=== PATIENT | female | born 1975 | race Caucasian/White ===

== ENCOUNTER 2019-02-24 14:20 | Outpatient (REF) | payer MEDICAID, SELFPAY ==
[2019-02-24 20:54] LABS: ALT 20 U/L (14-59); AST 11 U/L (15-37); Albumin 4.1 g/dL (3.4-5.0); Alkaline Phosphatase 49 U/L (46-116); Anion Gap 10.4 mmol/L (3-11); BUN 13 mg/dL (7-18); Bilirubin, Total 0.4 mg/dL (0.2-1.0); CO2 26.6 mmol/L (21.0-32.0); CREATININE 0.76 mg/dL (0.55-1.02); Calcium 9.1 mg/dL (8.5-10.1); Calculated LDL 117 mg/dL; Chloride 103 mmol/L (98-107); Cholesterol 220 mg/dL (50-200); Glucose 86 mg/dL (70-100); HDL Cholesterol 86 mg/dL (40-60); Potassium 4.4 mmol/L (3.5-5.1); Sodium 140 mmol/L (136-145); TSH (W/Ref FT4) 1.73 uIU/mL (0.36-3.74); Total Protein 7.9 g/dL (6.4-8.2); Triglyceride 85 mg/dL (30-150)
== END 2019-02-24 14:40 ==
LOC: NCHCN 14:20
PROVIDERS: PCP Nurse Practitioner; Visit Provider Nurse Practitioner
DX: Z13.29 Encounter for screening for other suspected endocrine disorder (principal); Z13.228 Encounter for screening for other metabolic disorders; Z13.220 Encounter for screening for lipoid disorders
CPT/HCPCS: 80053; 80061; 84443

== ENCOUNTER 2019-03-22 11:41 | Inpatient (IN) | payer MEDICAID, SELFPAY ==
[2019-03-22] VITALS (56 sets, daily range): BP systolic 38–127; BP diastolic 28–105; PULSE 56–153; RESP 15–40; TEMP 36.6–36.7; O2SAT 94–100
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
[2019-03-22] MEDS: Lactated Ringers 1,000 ML 1000 ML IV (11:45)
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
--- NOTE | 2019-03-22 11:48 | DI.RAD_ITS ---
EXAM: XR ANKLE RT 2V INDICATION: trauma. COMPARISON: No exams were available for comparison TECHNIQUE: 2D digital imaging was performed. FINDINGS: A displaced mid talar vertical fracture is demonstrated with disruption of the talocalcaneal joint.
--- NOTE | 2019-03-22 11:48 | DI.RAD_ITS ---
EXAM: XR FEMUR RT INDICATION: trauma. COMPARISON: No exams were available for comparison TECHNIQUE: 2D digital imaging was performed. FINDINGS: There is a comminuted displaced fracture of the midshaft of the right femur.
[2019-03-22 11:59] LABS: Abs Immature Grans 0.06 k/cumm (0.0-0.09); Absolute Basophil Count 0.03 k/cumm (0.0-0.2); Absolute Eosinophil Count 0.37 k/cumm (0.0-0.7); Absolute Lymphocyte Count 3.16 k/cumm (1.2-3.4); Absolute Monocyte Count 0.85 k/cumm (0.11-0.7); Absolute Neutrophil Count 10.44 k/cumm (1.2-6.7); Basophils % 0.2; Eosinophils % 2.5; HCT 39.3 % (36.0-46.0); HGB 12.6 g/dL (12.0-15.5); Immature Grans % 0.4; Lymphocytes % 21.2; Mean Corp. HGB Concentration 32.1 g/dL (32.0-36.0); Mean Corpuscular Volume 96.8 fL (80-95); Mean Platelet Volume 10.3 fL (8.0-11.0); Monocytes % 5.7; Platelet Count 400 x1000/uL (130-400); RBC 4.06 m/cumm (4.00-5.20); RBC Distribution Width 12.3 % (11.7-14.6); White Blood Cell Count 14.92 k/cumm (4.4-10.8)
[2019-03-22 12:16] LABS: PTT Activated 19.4 sec (21.0-31.4); Prothrombin Time 10.5 sec (9.3-11.0)
[2019-03-22 12:22] LABS: ALT 26 U/L (14-59); AST 31 U/L (15-37); Albumin 3.8 g/dL (3.4-5.0); Alkaline Phosphatase 50 U/L (46-116); Anion Gap 9.3 mmol/L (3-11); BUN 11 mg/dL (7-18); Bilirubin, Total 0.4 mg/dL (0.2-1.0); CO2 27.7 mmol/L (21.0-32.0); Calcium 8.6 mg/dL (8.5-10.1); Chloride 103 mmol/L (98-107); Glucose 129 mg/dL (70-100); Magnesium 2.1 mg/dL (1.8-2.4); Potassium 3.7 mmol/L (3.5-5.1); Sodium 140 mmol/L (136-145); Total Protein 7.8 g/dL (6.4-8.2)
[2019-03-22 12:23] LABS: Troponin I < 0.05 ng/mL (0.00-0.06)
[2019-03-22] MEDS: Omnipaque 350 MG/ML 100 ML BTL IJ (12:29)
[2019-03-22] MEDS: fentaNYL 100 MCG/2 ML VIAL (13:35)
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
[2019-03-22] MEDS: Cellulose,Oxidized 4X8 1 PACKET MC (14:57)
--- NOTE | 2019-03-22 15:19 | DI.RAD_ITS ---
EXAM: XR PORTABLE CHEST AP INDICATION: COUNT VERIFICATION. TECHNIQUE: 2D digital imaging was performed. FINDINGS: A portable postoperative supine chest reveals no evidence of a pulmonary infiltrate or pneumothorax. The heart is not enlarged. The hilar structures, mediastinum and tracheal air column are intact. A nasogastric tube is identified ending in the stomach. A jugular venous catheter appears to end in th e thorax.
[2019-03-22 15:21] LABS: BE -8.7 mmol/L (-3-3); HCO3 19 mmol/L (22-28); pCO2 44 mmHg (34-47); pH 7.24 (7.35-7.45); pO2 546 mmHg (83-108)
[2019-03-22 15:23] LABS: HCT 25.1 % (36.0-46.0); HGB 8.2 g/dL (12.0-15.5); Mean Corp. HGB Concentration 32.7 g/dL (32.0-36.0); Mean Corpuscular Hemoglobin 27.5 pg (27.0-33.0); Mean Corpuscular Volume 84.2 fL (80-95); Mean Platelet Volume 10.3 fL (8.0-11.0); RBC 2.98 m/cumm (4.00-5.20); RBC Distribution Width 16.6 % (11.7-14.6); White Blood Cell Count 11.59 k/cumm (4.4-10.8)
[2019-03-22 15:32] LABS: Platelet Count 53 x1000/uL (130-400)
[2019-03-22 15:41] LABS: HCT 28.3 % (36.0-46.0); HGB 9.4 g/dL (12.0-15.5); Mean Corp. HGB Concentration 33.2 g/dL (32.0-36.0); Mean Corpuscular Volume 87.3 fL (80-95); Mean Platelet Volume 10.5 fL (8.0-11.0); Platelet Count 47 x1000/uL (130-400); RBC 3.24 m/cumm (4.00-5.20); RBC Distribution Width 16.1 % (11.7-14.6); White Blood Cell Count 9.95 k/cumm (4.4-10.8)
[2019-03-22 16:10] LABS: INR 1.4 (0.9-1.1); Prothrombin Time 14.2 sec (9.3-11.0)
--- NOTE | 2019-03-22 16:15 | DI.RAD_ITS ---
EXAM: XR ABDOMEN FLAT PLATE INDICATION: Postoperative. TECHNIQUE: 2D digital imaging was performed. FINDINGS: Images of the abdomen reveal a nasogastric tube in place which appears to end in the proximal duodenu m. No surgical hardware is identified in the abdomen or pelvis.
[2019-03-22 16:58] LABS: APTT (LRH) 30.1 secs (21.3-28.4); Fibrinogen (Stat) (Littleton) 137 mg/dL (208-434); INR (LRH) 1.4 (0.9-1.1); Protime (LRH) 13.8 secs (9.1-10.6)
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
== END 2019-03-22 17:01 | disposition short-term general hospital (02) | DRG 964 ==
LOC: ER 14:26 → SUR 14:27 → PDS 04-14 11:35
PROVIDERS: Admitting Provider Surgery; Emergency Provider Physician Assistant; PCP Nurse Practitioner; Visit Provider Surgery
PROC: (CPT 49000; principal; 2019-03-22 14:30)
DX: S36.498A Other injury of other part of small intestine, initial encounter (principal); S06.6X0A Traumatic subarachnoid hemorrhage without loss of consciousness, initial encounter; S22.20XA Unspecified fracture of sternum, initial encounter for closed fracture; S72.351A Displaced comminuted fracture of shaft of right femur, initial encounter for closed fracture; S22.31XA Fracture of one rib, right side, initial encounter for closed fracture; S92.191A Other fracture of right talus, initial encounter for closed fracture; V49.88XA Car occupant (driver) (passenger) injured in other specified transport accidents, initial encounter; Y92.413 State road as the place of occurrence of the external cause; I95.9 Hypotension, unspecified; R00.0 Tachycardia, unspecified; R41.82 Altered mental status, unspecified; M95.0 Acquired deformity of nose
CPT/HCPCS: 49000; 44850; 36415; 36430; 73552; 74177; 80053; 82805; 85027; 85384; 86850; 86900; 86901; 86920; 93005; 96361; 96375; 99255; 99285; 70450; 71045; 71260; 72125; 73600; 74018; 82330; 83735; 84484; 85025; 85610; 85730; 93010; J3010; J3490; P9016; P9059

== ENCOUNTER 2021-03-28 15:24 | Outpatient (REF) | payer MEDICAID, SELFPAY ==
[2021-03-28 16:17] LABS: HCT 40.6 % (36.0-46.0); MCH 30.2 pg (27.0-33.0); MCV 94.2 fL (80-95); MPV 11.4 fL (8.0-11.0); Platelet Count 326 10^3/uL (130-400); RBC 4.31 10^6/uL (3.93-5.22); RDW 12.4 % (11.7-14.6); RDW-SD 43.2 fL; WBC 7.26 10^3/uL (4.4-10.8)
== END 2021-03-28 15:25 | disposition home or self-care (01) ==
LOC: NCHCN 15:24
PROVIDERS: PCP Nurse Practitioner; Visit Provider Nurse Practitioner
DX: D64.9 Anemia, unspecified (principal)
CPT/HCPCS: 85027

== ENCOUNTER 2022-01-02 10:52 | Outpatient (REF) | payer MEDICAID, SELFPAY ==
--- NOTE | 2022-01-02 10:00 | PAPFT_PTH ---
PATIENT: Renu Emmanuel LOC: [facility] U#:[id number] AGE/SX: 46/F ROOM: RE01/02/[address]: Radha Rosado NP : 1975 BED: DIS: 01/02/2022 SPEC #: [id number] RECD: 01/02/22 12:25 STATUS: ALFIE REOrly #: [id number] MARILUZ: 01/02/22 10:[address]: Ashlee ALVARADO,Radha DEPT: [facility] Cytology RECD BY: Noni Valderrama ENTERED: 01/02/22 12:25 SP TYPE: PAPFT OTHR DR: Rosalina Rene Tissues: 1 - CX/ENDOCX FOR PAP SMEARS Procedures: PAP THIN PREP/UVM Screening HPV DNA PROBE Comments: [id number] (CHLAMYDIA/GC)
--- OUTSIDE RECORDS SUMMARY | 2022-01-02 11:05 | XMS_ITS | Encounter Summary ---
:1975 Author Organization [facility] Address [address] [facility] [place] [address] Care Team Providers Name Role Phone None Primary Care Provider Unavailable Encounter Details Date Type Department Care Team Description 04/09/2019 Hospital Encounter XRay at [facility] Bee Dupree S/P ORIF R rene, [address] Mervat MD N R femur 03/25/19 [place], [place] [address] Dupree [id number] [place] [phone] [place] [address] Social History Tobacco Use Types Packs/Day Years Used Date Never Smoker Smokeless Tobacco: Never Used Alcohol Use Standard Drinks/Week Comments Never 0 (1 standard drink = 0.6 oz pure alcoho l) Quit in 2012 Alcohol Habits Answer Date Recorded How often do you have a drink containing alcohol? 2-4 times a month 03/28/2019 How many drinks containing alcohol do you have on a 1 or 2 03/28/2019 typical day when you are drinking? How often do you have six or more drinks on one Never 03/28/2019 occasion? Comment: Quit in 201204/09/2019 Sex Assigned at Date Recorded Not on file documented as of this encounter Medications at Time of Discharge Medication Sig Dispensed Refills Start Date End Date acetaminophen Take 2 tablets by mouth 30 tablet 1 9 (TYLENOL) 500 mg every 8 hours. Tablet bisacodyl (DULCOLAX) 5 Take 2 tablets by mouth 30 tablet 0 03/31/2019 mg Tablet, Delayed 2 times daily as needed Release (E.C.) for Constipation. polyethylene glycol Take 17 g by mouth 14 each 0 03/31/20 19 (MIRALAX) 17 gram daily as needed. Powder in Packet docusate sodium Take 100 mg by mouth 0 04/07/2019 05/14/2019 (COLACE) 100 mg Twice daily. Capsule enoxaparin (LOVENOX) Inject 0.4 mLs 12 mL 0 03/31/2019 04/30/2019 40 mg/0.4 mL Syringe subcutaneously daily for 30 days. documented as of this encounter Plan of Treatment Upcoming Encounters Date Type Specialty Care Team Description 02/08/2022 Office Visit Orthopaedics Bee Dupree MD [facility] [address] ORTHOPAEDIC SURG [place], [place] [address] (Wo rk) documented as of this encounter Procedures Procedure Name Priority Date/Time Associated Diagnosis Comme nts XR FOOT MIN 3 VIEWS Routine 04/09/2019 3:24 PM S/P ORIF R talu s, Results for this RIGHT EST IMN R femur 03/25/19 procedu re are in Dr. Dupree the results section. XR FEMUR 2 VIEWS Routine 04/09/2019 3:24 PM S/P ORIF R talus, Results for this RIGHT EST IMN R femur 03/25/19 procedu re are in Dr. Dupree the results section. documented in this encounter Results XR Foot Min 3 views Right (Generic) (04/09/2019 3:24 PM EST) Anatomical Region Laterality Modality Foot Right Digital Radiography Specimen (Source) Anatomical Location Collection Method / Collectio n Time Received Time / Laterality Volume Impressions 04/09/2019 4:40 PM EST Fracture alignment is unchanged, and there is no evidence of hardware complication. Thank you for letting us participate in the care of this patient. For questions regarding this report, please contact e number below. ? Electronically signed by: Johanna Velasquez [facility] ([phone]), at 04/09/2019 4:40 PM Narrative 04/09/2019 4:40 PM EST EXAMINATION: XR FOOT MIN 3 VIEWS RIGHT (GENERIC) CLINICAL HISTORY: S/P ORIF R talus TECHNIQUE: 3 views RIGHT foot COMPARISON: 03/26/2019 FINDINGS: The foot is stabilized in casting materi al, which limits detail. There has been ORIF of the talar fracture, which is in unchanged alignment. There is no evidence of hardware loosening. Procedure Note Johanna Velasquez MD - 04/09/2019Formatt ing of this note might be different from the original. EXAMINATION: XR FOOT MIN 3 VIEWS RIGHT ( GENERIC) CLINICAL HISTORY: S/P ORIF R talus TECHNIQUE: 3 views RIGHT foot COMPARISON: 03/26/2019 FINDINGS: The foot is stabilized in casting materi al, which limits detail. There has been ORIF of the talar fracture, which is in unchanged alignment. There is no evidence of hardware loosening. IMPRESSION Fracture alignment is unchanged, and the re is no evidence of hardware complication. Thank you for letting us participate in the care of this patient. For questions regarding this report, please contact e number below. Electronically signed by: Johanna Velasquez [facility] ([phone]), at 04/09/2019 4:40 PM Bee Dupree MD IMG DX ORDERABLES XR Femur 2 views Right (Generic) (04/09/2019 3:24 PM EST) Anatomical Region Laterality Modality Thigh Right Digital Radiography Specimen (Source) Anatomical Location Collection Method / Collectio n Time Received Time / Laterality Volume Impressions 04/09/2019 4:38 PM EST Progression in healing, without change in alignment. No evidence of hardware complication. Thank you for letting us participate in the care of this patient. For questions regarding this report, please contact th e number below. ? Electronically signed by: Johanna Velasquez [facility] ([phone]), at 04/09/2019 4:38 PM Narrative 04/09/2019 4:38 PM EST EXAMINATION: XR FEMUR 2 VIEWS RIGHT (GENERIC) CLINICAL HISTORY: S/P IMN R femur TECHNIQUE: 2 views RIGHT femur COMPARISON: 03/26/2019 FINDINGS: Again demonstrated is a comminuted fract ure of the mid tibial diaphysis, with butterfly fragment. There has been inter nal fixation with an intramedullary sung and proximal and distal interlocking scr ews. Osseous alignment is unchanged from the prior exam, and there is some perios teal remodeling to indicate progression in healing. There are ghost screw tracks from the external fixator. Procedure Note Johanna Velasquez MD - 04/09/2019Formatt ing of this note might be different from the original. EXAMINATION: XR FEMUR 2 VIEWS RIGHT (GEN SUNSHINE) CLINICAL HISTORY: S/P IMN R femur TECHNIQUE: 2 views RIGHT femur COMPARISON: 03/26/2019 FINDINGS: Again demonstrated is a comminuted fract ure of the mid tibial diaphysis, with butterfly fragment. There has been inter nal fixation with an intramedullary sung and proximal and distal interlocking scr ews. Osseous alignment is unchanged from the prior exam, and there is some perios teal remodeling to indicate progression in healing. There are ghost screw tracks from the external fixator. IMPRESSION Progression in healing, without change i n alignment. No evidence of hardware complication. Thank you for letting us participate in the care of this patient. For questions regarding this report, please contact e number below. 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
--- OUTSIDE RECORDS SUMMARY | 2022-01-02 11:05 | XMS_ITS | Encounter Summary ---
:1975 Author Organization [facility] [place] [address] Care Team Providers Name Role Phone None Primary Care Provider Unavailable Encounter Details Date Type Department Care Team Description 03/31/2019 Telephone Neurosurgery at [facility] [address] Social History Tobacco Use Types Packs/Day Years Used Date Never Smoker Smokeless Tobacco: Never Used Alcohol Use Standard Drinks/Week Comments Yes 0 (1 standard drink = 0.6 oz pure alcoho l) Alcohol Habits Answer Date Recorded How often do you have a drink containing alcohol? 2-4 times a month 03/28/2019 How many drinks containing alcohol do you have on a 1 or 2 03/28/2019 typical day when you are drinking? How often do you have six or more drinks on one Never 03/28/2019 occasion? 

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
--- OUTSIDE RECORDS SUMMARY | 2022-01-02 11:05 | XMS_ITS | Encounter Summary ---
:1975 Author Organization [facility] [place] [address] Care Team Providers Name Role Phone None Primary Care Provider Unavailable Reason for Referral Diagnostic Test (Routine) - Closed Specialty Diagnoses / Procedures Referred By Contact Refer red To Contact Radiology Diagnoses Displaced oblique fracture of shaft of right femur, initial encounter for closed fracture Closed displaced fracture of right talus with routine healing, unspecified fracture morphology, subsequent encounter Alla Schmidt PA [facility] Rad Ct Scan Procedures CT Ankle wo Contrast Right (Generic) [facility] [place] [address] [place] [address] Referral ID Status Reason Start Date Expiration Date Visits V isits Requested Authorized [id number] Closed Specialty 06/04/2019 09/02/2019 1 1 Service Requested Reason for Visit Diagnostic Test (Routine) - Closed Specialty Diagnoses / Procedures Referred By Contact Refer red To Contact Radiology Diagnoses Displaced oblique fracture of shaft of right femur, initial encounter for closed fracture Closed displaced fracture of right talus with routine healing, unspecified fracture morphology, subsequent encounter Alla Schmidt PA [facility] Rad Ct Scan Procedures CT Ankle wo Contrast Right (Generic) [facility] DR [place] [facility] [place] [address] [place] [address] Referral ID Status Reason Start Date Expiration Date Visits V isits Requested Authorized [id number] Closed Specialty 06/04/2019 09/02/2019 1 1 Service Requested Encounter Details Date Type Department Care Team Description 06/10/[address] [place] [facility] [place] Dupree S/P ORIF R talus, IMN R femu r 03/25/19 Dr. Dupree; [facility] MD Mervat Closed displaced fracture of right talus with routine healing, unspecified fracture morphology, subsequent encounter Drive [facility] [address] ORTHOPAEDIC [phone] [place] [address] Social History Tobacco Use Types Packs/Day Years [...] Dispensed Refills Start Date End Date acetaminophen (TYLENOL) 500 Take 2 tablets by 30 tablet 1 1 mg Tablet mouth every 8 hours. bisacodyl (DULCOLAX) 5 mg Take 2 tablets by 30 tablet 0 Tablet, Delayed Release mouth 2 times daily (E.C.) as needed for Constipation. polyethylene glycol Take 17 g by mouth 14 each 0 03/31/20 19 (MIRALAX) 17 gram Powder in daily as needed. Packet documented as of this encounter Plan of Treatment Upcoming Encounters Date Type Specialty Care Team Description 02/08/2022 Office Visit Orthopaedics Bee Dupree MD [facility] ORTHOPAEDIC SUR[place], [place] [address] (Wo rk) documented as of this encounter Procedures Procedure Name Priority Date/Time Associated Diagnosis Comme nts CT ANKLE WO Routine 06/10/2019 11:40 AM S/P ORIF R talus, Res ults for this CONTRAST RIGHT EST IMN R femur 03/25/19 proce dottie are in Dr. Dupree the results Closed displaced section. fracture of right talus with routine healing, unspecified fracture morphology, subsequent encounter documented in this encounter Results CT Ankle wo Contrast [...] For questions regarding this report, please contact [facility] number below. ? Electronically signed by: Sherrell Castillo [facility] ([phone]), at 06/10/2019 3:34 PM Narrative 06/10/2019 3:34 PM EST EXAMINATION: CT [...] contact e number below. Electronically signed by: Sherrell Castillo [facility] ([phone]), at 06/10/2019 3:34 PM Bee Dupree MD IMG CT ORDERABLES documented in this encounter Visit Diagnoses Diagnosis S/P ORIF R talus, IMN R femur 03/25/19 Brissa Dupree Closed displaced fracture of right talus with routine healing, unspecified fracture morphology, subsequent encounter documented in this encounter Care Teams Medical Assembly Relationship Specialty Start Date End Date None PCP - General 03/22/19 11/11/19 None documented as of this encounter
--- OUTSIDE RECORDS SUMMARY | 2022-01-02 11:05 | XMS_ITS | Encounter Summary ---
:1975 Author Organization [facility] [place] [address] Care Team Providers Name Role Phone Rosalina Rene APRN Primary Care Provider Encounter Details Date Type Department Care Team Description 09/03/2021 Orders Only Orthopaedics at [facility] Bee Dupree, Right ankle pain, [facility] unspecified Drive [facility] [place] [address] ORTHOPAEDIC SURGERY [place], [place] [address] Social History Tobacco Use Types [...] on file documented as of this encounter Plan of Treatment Upcoming Encounters Date Type Specialty Care Team Description 02/08/2022 Office Visit Orthopaedics Bee Dupree MD [facility] ORTHOPAEDIC SURG [place], [place] [address] (Wo rk) documented as of this encounter Results XR Ankle Min 3 views Right (Generic) (09/21/2021 1:16 PM EDT) Anatomical Region Laterality Modality Ankle Right Digital Radiography Specimen (Source) Anatomical Location Collection Method / Collectio n Time Received Time / Laterality Volume Impressions 09/21/2021 1:29 PM EDT Talus fracture has healed status post internal fixation. Thank you for letting us participate in the care of this patient. ??If you are a health care provider and have any questi ons regarding this report, please contact the number below. ??For patients who have questions please contact the health laboratory animal care veterinarian that requested your imaging first. ? Narrative 09/21/2021 1:29 PM EDT EXAMINATION: XR ANKLE MIN 3 VIEWS RIGHT (GENERIC) CLINICAL HISTORY: ORIF R talus, IMN R fe mur 03/25/19 Dr. Dupree DOI 03/22/2019 TECHNIQUE: 3 views RIGHT ankle COMPARISON: November 2019 FINDINGS: Status post internal fixation of talar n clara fracture. The fracture has healed. The hardware is intact. Ankle mortise is normal. No collapse of the talar dome similar mild narrowing of the talonavicu lar joint. Procedure Note Ermias Mullen MD - 09/21/2021Formatting o f this note might be different from the original. EXAMINATION: XR ANKLE MIN 3 VIEWS RIGHT (GENERIC) CLINICAL HISTORY: ORIF R talus, IMN R fe mur 03/25/19 Dr. Dupree DOI 03/22/2019 TECHNIQUE: 3 views RIGHT ankle COMPARISON: November 2019 FINDINGS: Status post internal fixation of talar n clara fracture. The fracture has healed. The hardware is intact. Ankle mortise is normal. No collapse of the talar dome similar mild narrowing of the talonavicu lar joint. IMPRESSION Talus fracture has healed status post in ternal fixation. Thank you for letting us participate in the care of this patient. If you are a health care provider and have any questi ons regarding this report, please contact the number below. For patients w ho have questions please contact the health laboratory animal care veterinarian that requested your imaging first. Bee Dupree MD IMG DX ORDERABLES documented in this encounter Visit Diagnoses Diagnosis Right ankle pain, unspecified chronicity Right ankle pain, unspecified chronicity documented in this encounter Care Teams Systems Technologist Relationship Specialty Start Date End Date Rosalina Rene APRN PCP - General Family Medicine 11/12/19 [place] [address] documented as of this encounter
--- OUTSIDE RECORDS SUMMARY | 2022-01-02 11:05 | XMS_ITS | Encounter Summary ---
:1975 Author Organization [facility] [place] [address] Care Team Providers Name Role Phone None Primary Care Provider Unavailable Encounter Details Date Type Department Care Team Description 11/09/2019 Orders Only Orthopaedics at [facility] Bee Dupree, S/P ORIF R YANIV lópez [facility] R femur 03/25/19 [facility] [place] [address] ORTHOPAEDIC SURGERY [place], [place] [address] Social History Tobacco Use Types [...] 02/08/2022 Office Visit Orthopaedics Bee Dupree MD [facility] ER ORTHOPAEDIC SURG [place], [place] [address] (Wo rk) documented as of this encounter Results XR Ankle Min 3 views Right (Generic) (11/12/2019 2:16 PM EDT) Anatomical Region Laterality Modality Ankle Right Digital Radiography Specimen (Source) Anatomical Location Collection Method / Collectio n Time Received Time / Laterality Volume Impressions 11/12/2019 2:25 PM EDT 1. ??The talar fracture lines are no longer seen consistent with healing and or partial obliteration by large number of overlying hardware. The talar dome morphology is preserved. No collapse. 2. ??Incongruent posterior subtalar join t, similar to CT 3. ??Eccentric narrowed talonavicular jonathan int, unchanged. 4. ??Prominent medial talar tilt or inve rsion Thank you for letting us participate in the care of this patient. For questions regarding this report, please contact [facility] number below. ? Narrative 11/12/2019 2:25 PM EDT EXAMINATION: XR ANKLE MIN 3 VIEWS RIGHT (GENERIC) CLINICAL HISTORY: right talus fx ORIF ne w pain, , entered by ordering service TECHNIQUE: Left ankle, 3 views, weightbe aring COMPARISON: Radiographs, May [address] scan, June 2019 FINDINGS: Bones * ??Talus-large number of fixation hardw are. The fracture line is no longer seen. The talar dome remains normal in morphol ogy. No fragmentation or collapse. * ??Cuboid-the fracture lines are oblite rated. Joints * ??Tibiotalar joint-congruent ankle mor tise. Small effusion. There is a prominent talar inversion and tilt. * ??Subtalar joint as incongruent pole framer ior subtalar joint with anterior subluxation of calcaneus similar to CT e xamination. * ??Talonavicular joint-eccentric joint space narrowing but unchanged. Soft tissues Residual soft tissue swelling. Procedure Note Sherrell Castillo MD - 11/12/2019Formatt ing of this note might be different from the original. EXAMINATION: XR ANKLE MIN 3 VIEWS RIGHT (GENERIC) CLINICAL HISTORY: right talus fx ORIF ne w pain, , entered by ordering service TECHNIQUE: Left ankle, 3 views, weightbe aring COMPARISON: Radiographs, May [address] scan, June 2019 FINDINGS: Bones * Talus-large number of fixation hardwar e. The fracture line is no longer seen. The talar dome remains normal in morphol ogy. No fragmentation or collapse. * Cuboid-the fracture lines are oblitera kori. Joints * Tibiotalar joint-congruent ankle morti se. Small effusion. There is a prominent talar inversion and tilt. * Subtalar joint as incongruent posterio r subtalar joint with anterior subluxation of calcaneus similar to CT e xamination. * Talonavicular joint-eccentric joint sp diamante narrowing but unchanged. Soft tissues Residual soft tissue swelling. IMPRESSION 1. The talar fracture lines are no longe r seen consistent with healing and or partial obliteration by large number of overlying hardware. The talar dome morphology is preserved. No collapse. 2. Incongruent posterior subtalar joint, similar to CT 3. Eccentric narrowed talonavicular join t, unchanged. 4. Prominent medial talar tilt or invers ion Thank you for letting us participate in the care of this patient. For questions regarding this report, please contact e number below. Electronically signed by: Sherrell Castillo [facility] ([phone]), at 11/12/2019 2:25 PM Bee Dupree MD IMG DX ORDERABLES documented in this encounter Visit Diagnoses Diagnosis S/P ORIF R talus, IMN R femur 03/25/19 Brissa Dupree S/P ORIF R talus, IMN R femur 03/25/19 Brissa Dupree documented in this encounter Care Teams Data Coordinator Relationship Specialty Start Date End Date None PCP - General 03/22/19 11/11/19 None documented as of this encounter
--- OUTSIDE RECORDS SUMMARY | 2022-01-02 11:05 | XMS_ITS | Encounter Summary ---
:1975 Author Organization [place] [address] Care Team Providers Name Role Phone Rosalina Rene APRN Primary Care Provider Reason for Referral Physical Therapy (Routine) - Authorized Specialty Diagnoses / Procedures Referred By Contact Refer red To Contact Diagnoses Right ankle pain, unspecified chronicity ArmandoHilario cash MD [facility] D R [place]OPA[place] [address] Referral ID Status Reason Start Expiration Visits Visits Date Date Requested Authorized [id number] Authorized Evaluate and 09/21/2021 03/20/2022 12 12 Treat Reason for Visit Reason Comments Follow-up ORIF R talus, IMN R femur Dr. Dupree DOI 03/22/2019 Encounter Details Date Type Department Care Team Description 09/21/2021 Office Visit [place]edics [place] [facility] Bee Dupree, Right ankle pain, [facility] unspecified Drive [place] [address] [phone] ORTHOPAEDIC SURGERY [place] [employer], [place] [address] Social History Tobacco Use Types [...] Pulse 68 09/21/2021 1:27 PM EDT Temperature - - Respiratory Rate - - Oxygen Saturation - - Inhaled Oxygen Concentration - - Weight 70.3 kg (155 lb) 09/21/2021 1:27 PM EDT pt repor kori Height 157.5 cm (5' 2) 09/21/2021 1:27 PM EDT pt repor kori Body Mass Index 28.35 09/21/2021 1:27 PM EDT documented in this encounter Progress Notes Hilario Roberts MD - 09/21/2021 1:50 PM EDT ORTHOPAEDIC CLINIC NOTE PATIENT NAME: Renu Emmanuel DATE OF VISIT: 09/21/21 CHIEF COMPLAINT: Chief Complaint Patient presents with ??? Follow-up ORIF R rene, IMN R femur 03/25/19 Dr. Dupree DOI 03/22/2019 HPI: Renu Emmanuel is a 46 y.o. female patient who presents to the orthopaedic clinic for follow-upevaluation of her right talus approximately 2.5 years status post operative fixation. Patient reports persistent discomfort of her right foot/ankle, worse with prolonged activity. She is able to perform all desired activities, including playing and walking with her daughter, but experiences pain whiledoing so. She is not working at this time. She was provided with a custom Ese boot at her previous appointment, and has been using this intermittently with inconsistent relief. Her occasional pain is controlled without any medication. Of note, she never participated in formal PT after surgery. MEDICATIONS and ALLERGIES: As reviewed in eDH ROS: 12 point ROS negative PHYSICAL EXAM: R foot exam: Skin intact, medial and lateral scars over talus well healed. No effusion. TTP circumferentially around medial, anterior, and lateral talus. Mild pain with resisted dorsiflexion, plantar flexion, inversion, eversion, talar tilt. 5/5 FHL/EHL/TA strength. Sensation intact in sural/saph/SP/DP/T distributions. Palpable PT and DP pulses. . IMAGING: Radiographs of R foot demonstrate unchanged alignment of R talus plate + screw fixation compared to previous radiographs. Fracture is well healed without evidence of additional injuries. Subtalar jointspace is decreased with moderate subchondral sclerosis. ASSESSMENT and PLAN: This is a 46 y.o. female 2.5 yrs s/p R talus ORIF p/w persistent foot and anklediscomfort. 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 We discussed the relatively high frequency of persistent pain following traumatic injuries and management options going forward. As patient is relatively high functioning, conservative management could be continued, though formal physical therapy evaluation and treatment would be recommended. We also discussed proceeding with targeted injection, which would be both diagnostic and therapeutic. If this addressed pain, further surgical options could be discussed. This patient is able to perform all desired activities without significant difficulty, we agreed upon continued conservative management with the addition of formal physical therapy to focus on strengthening and range of motion of the ankle. Patient can follow-up in 4 to 6 months (repeat radiographs not needed) to discuss status of symptoms. Patient expressed understanding and was in agreement with the plan. Hilario Roberts MD Orthopaedic Surgery I have seen the patient and reviewed the attached history/physical and all imaging and I agree with the details as written. The assessment and plan were formulated in discussion with me and I agree with them as documented. Mervat Dupree MD Department of Orthopaedics 09/24/2021 documented in this encounter Plan of Treatment Upcoming Encounters Date Type Specialty Care Team Description 02/08/2022 Office Visit Orthopaedics Bee Dupree MD [facility] ORTHOPAEDIC SURG [place], [place] [address] (Wo rk) Scheduled Referrals Name Type Priority Associated Diagnoses Order S chedule Referral to Outpatient Referral Routine Right ankle pain, Ord ered: Physical Therapy unspecified 09/21/2021 chronicity documented as of this encounter Visit Diagnoses Diagnosis Right ankle pain, unspecified chronicity documented in this encounter Care Teams Home Restoration Service Cleaner Relationship Specialty Start Date End Date Rosalina Rene APRN PCP - General Family Medicine 11/12/19 [place] [address] documented as of this encounter
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
--- OUTSIDE RECORDS SUMMARY | 2022-01-02 11:05 | XMS_ITS | Encounter Summary ---
:1975 Author Organization [facility] Address One [facility] [place] [address] Care Team Providers Name Role Phone Rosalina Rene APRN Primary Care Provider Encounter Details Date Type Department Care Team Description 09/21/2021 Hospital Encounter XRay at [facility] Gitas[place], [place] Right ankle pain, [address] Mervat MD unspecified [place], [place] [facility] chronicity [id number] [place] [phone] [place] [address] Social History Tobacco Use Types Packs/Day Years [...] Sig Dispensed Refills Start Date End Date multivitamin (THERAGRAN) Take 1 tablet by 0 Tablet mouth daily. acetaminophen (TYLENOL) 500 Take 2 tablets by [...] Visit Orthopaedics [place] Dupree MD [facility] ER DR ORTHOPAEDIC SURG [place], [place] [address] (Wo rk) documented as of this encounter Procedures Procedure Name Priority Date/Time Associated Diagnosis Comme nts XR ANKLE MIN 3 Routine 09/21/2021 1:16 PM Right ankle pain, Re sults for this VIEWS RIGHT EDT unspecified procedure are i n chronicity the results section. documented in this encounter Results XR Ankle Min 3 [...] who have questions please contact the health specialist wound care that requested your imaging first. ? Electronically signed by: Ermias Mullen MD , [facility] ([phone]), at 09/21/2021 1:29 PM Narrative 09/21/2021 1:29 PM EDT EXAMINATION: XR [...] ho have questions please contact the health specialist wound care that requested your imaging first. Electronically signed by: Ermias Mullen MD , [facility] ([phone]), at 09/21/2021 1:29 PM [place] Dupree MD IMG DX ORDERABLES documented in this encounter Visit Diagnoses Diagnosis Right ankle pain, unspecified chronicity documented in this encounter Care Teams Inside Sales Assistant Relationship Specialty Start Date End Date Rosalina Rene APRN PCP - General Family Medicine 11/12/19 [place] [address] documented as of this encounter
--- OUTSIDE RECORDS SUMMARY | 2022-01-02 11:05 | XMS_ITS | Encounter Summary ---
:1975 Author Organization [facility] Address One [facility] [place] [address] Care Team Providers Name Role Phone None Primary Care Provider Unavailable Encounter Details Date Type Department Care Team Description 05/14/2019 Hospital Encounter XRay at [facility] [place] Dupree S/P ORIF R jimus, [address] Mervat MD N R femur 03/25/19 [place], [place] [facility] [place] Dupree [id number] [place] [phone] [place] [address] Social History Tobacco Use Types Packs/Day Years [...] Visit Orthopaedics [place] Dupree MD [facility] DR ORTHOPAEDIC SURG [place], [place] [address] (Wo rk) documented as of this encounter Procedures Procedure Name Priority Date/Time Associated Diagnosis Comme nts XR FEMUR 2 VIEWS Routine 05/14/2019 8:07 AM S/P ORIF R talus, Results for this RIGHT EST IMN R femur 03/25/19 procedu re are in Dr. Dupree the results section. XR ANKLE MIN 3 Routine 05/14/2019 8:07 AM S/P ORIF R talus, Re sults for this VIEWS RIGHT EST IMN R femur 03/25/19 procedu re are in Dr. Dupree the results section. documented in this encounter Results XR Femur 2 views Right (Generic) (05/14/2019 8:07 AM EST) Anatomical Region Laterality Modality Thigh Right Digital Radiography Specimen (Source) Anatomical Location Collection Method / Collectio n Time Received Time / Laterality Volume Impressions 05/14/2019 10:45 AM EST No hardware complication is identified. Healing mid shaft femoral fracture. Thank you for letting us participate in the care of this patient. For questions regarding this report, please contact e number below. ? Narrative 05/14/2019 10:45 AM EST EXAMINATION: XR FEMUR 2 VIEWS RIGHT (GENERIC) CLINICAL HISTORY: s/p IMN, femur fractur e, assess healing, assess hardware 44-year-old female TECHNIQUE: 2 views RIGHT femur COMPARISON: Right femur of 04/09/2019. 03/26/2019. FINDINGS: Right femur intramedullary sung is again identified with proximal and distal screws. The mid shaft comminuted right f emoral fracture is again identified, with butterfly fragment, and with bridgi ng periosteal reaction. The alignment is stable. Residua of external fixation dev ices. Procedure Note Savage Sesay MD - 05/14/2019Format ting of this note might be different from the original. EXAMINATION: XR FEMUR 2 VIEWS RIGHT (GEN SUNSHINE) CLINICAL HISTORY: s/p IMN, femur fractur e, assess healing, assess hardware 44-year-old female TECHNIQUE: 2 views RIGHT femur COMPARISON: Right femur of 04/09/2019. 03/26/2019. FINDINGS: Right femur intramedullary sung is again identified with proximal and distal screws. The mid shaft comminuted right f emoral fracture is again identified, with butterfly fragment, and with bridgi ng periosteal reaction. The alignment is stable. Residua of external fixation dev ices. IMPRESSION No hardware complication is identified. Healing mid shaft femoral fracture. Thank you for letting us participate in the care of this patient. For questions regarding this report, please contact [facility] number below. [place] Dupree MD IMG DX ORDERABLES XR Ankle Min 3 views Right (Generic) (05/14/2019 8:07 AM EST) Anatomical Region Laterality Modality Ankle Right Digital Radiography Specimen (Source) Anatomical Location Collection Method / Collectio n Time Received Time / Laterality Volume Impressions 05/14/2019 10:42 AM EST Findings, limits as above. Thank you for letting us participate in the care of this patient. For questions regarding this report, please contact e number below. ? Narrative 05/14/2019 10:42 AM EST EXAMINATION: XR ANKLE MIN 3 VIEWS RIGHT (GENERIC) CLINICAL HISTORY: talus fracture, assess healing, assess hardware, check for Hawkin's sign 44-year-old female TECHNIQUE: 3 views RIGHT ankle COMPARISON: Right ankle of 03/23/2019. CT ankle of 1 . FINDINGS: In casting material. Multiple screws and malleable plates are noted along the contour of the talus, the setting of kno wn fracture. Residual fracture lines are identified of the talus, known head and neck fracture. Limited evaluation secondary to overlying casting material. Known cuboid fracture is partially characterized, known calcaneal fracture is not well visualized. Limited evaluation of the talar dome, without de finite abnormal mineralization appreciated. There is mild tibiotalar ti lt, with mildly asymmetric joint spaces, wider at the medial aspect on the fronta l view. Procedure Note Savage Sesay MD - 05/14/2019Format ting of this note might be different from the original. EXAMINATION: XR ANKLE MIN 3 VIEWS RIGHT (GENERIC) CLINICAL HISTORY: talus fracture, assess healing, assess hardware, check for Hawkin's sign 44-year-old female TECHNIQUE: 3 views RIGHT ankle COMPARISON: Right ankle of 03/23/2019. CT ankle of 1 . FINDINGS: In casting material. Multiple screws and malleable plates are noted along the contour of the talus, the setting of kno wn fracture. Residual fracture lines are identified of the talus, known head and neck fracture. Limited evaluation secondary to overlying casting material. Known cuboid fracture is partially characterized, known calcaneal fracture is not well visualized. Limited evaluation of the talar dome, without de finite abnormal mineralization appreciated. There is mild tibiotalar ti lt, with mildly asymmetric joint spaces, wider at the medial aspect on the fronta l view. IMPRESSION Findings, limits as above. Thank you for letting us participate in the care of this patient. For questions regarding this report, please contact e number below. [place] Dupree MD IMG DX ORDERABLES documented in this encounter Visit Diagnoses Diagnosis S/P ORIF R talus, IMN R femur 03/25/19 Brissa Dupree documented in this encounter Care Teams Mobile Plant Operators Relationship Specialty Start Date End Date None PCP - General 03/22/19 11/11/19 None documented as of this encounter
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
--- OUTSIDE RECORDS SUMMARY | 2022-01-02 11:05 | XMS_ITS | Encounter Summary ---
:1975 Author Organization [facility] [place] [address] Care Team Providers Name Role Phone Rosalina Rene APRN Primary Care Provider Reason for Visit Reason Onset Date Comments Bumped Appointment 12/13/2021 Encounter Details Date Type Department Care Team Description 12/13/2021 Telephone Orthopaedics at [facility] [place] Dupree MD Bumped Appointment [facility] [place] [address] ORTHOPAEDIC SURG [place], [place] [address] (Wo rk) Social History Tobacco [...] this encounter Miscellaneous Notes Telephone Encounter - Monae Lozoya Gabi - 12/14/2021 11:09 AM EDT Images from the original note were not included. Patient returned call and was rescheduled: Telephone Encounter - Leisa Zimmerman - 12/13/2021 9:45 AM EDT LM#1 to reschedule bumped appointment with Joon scheduled on 01/25. Please reschedule to next available (02/08/22). documented in this encounter Plan of Treatment Upcoming Encounters Date Type Specialty Care Team Description 02/08/2022 Office Visit Orthopaedics [place] Dupree MD [facility] DR ORTHOPAEDIC SURG [place], [place] [address] (Wo rk) documented as of this encounter Visit Diagnoses Not on filedocumented in this encounter Care Teams Color Separation Photographer Relationship Specialty Start Date End Date Rosalina Rene APRN PCP - General Family Medicine 11/12/19 [address] [place] [address] documented as of this encounter
--- OUTSIDE RECORDS SUMMARY | 2022-01-02 11:05 | XMS_ITS | Encounter Summary ---
:1975 Author Organization [facility] [place] [address] Care Team Providers Name Role Phone None Primary Care Provider Unavailable Reason for Visit Reason Onset Date Comments Other 09/16/2019 Encounter Details Date Type Department Care Team Description 09/16/2019 Telephone Orthopaedics at [facility] [place] [address] Social History Tobacco Use Types Packs/Day [...] this encounter Miscellaneous Notes Telephone Encounter - Dawn Rasmussen - 11/05/2019 1:39 PM EDT PT called to f/u on the below message for POC. Please reach out to PT at [phone] To discuss with PT. Telephone Encounter - Laurie Scott RMA - 09/16/2019 1:03 PM EDT Triage Note Subjective: Ankle deformity SP Surgeon Role Adam Wilson MD Resident Francis Putnam MD Resident [place] Dupree MD Primary Dominguez Ayers MD Resident Procedure Laterality Anesthesia ORIF TALUS FX (WRVU 15.76) Right DOS 03/25/2020 Buck questions/Assessment: Renu called to find out what her next steps are. She stated that she wasseen in June and has been waiting for a phone call with instruction and a plan of care. I let her know that A message will be sent to Jenny Schmidt PA-C as she was going to talk to Dr Smith For recommendations. Plan: Message sent to Jenny Schmidt PA-C. documented in this encounter Plan of Treatment Upcoming Encounters Date Type Specialty Care Team Description 02/08/2022 Office Visit Orthopaedics [place] Dupree MD [facility] ER DR ORTHOPAEDIC SURG [place], [place] [address] (Wo rk) documented as of this encounter Visit Diagnoses Not on filedocumented in this encounter Care Teams Coordinating Producer Relationship Specialty Start Date End Date None PCP - General 03/22/19 11/11/19 None documented as of this encounter
--- OUTSIDE RECORDS SUMMARY | 2022-01-02 11:05 | XMS_ITS | Encounter Summary ---
:1975 Author Organization [facility] [place] [address] Care Team Providers Name Role Phone Rosalina Rene APRN Primary Care Provider Encounter Details Date Type Department Care Team Description 09/18/2021 Orders Only Orthopaedics at [facility] [place] Dupree, Displaced oblique [facility] MD fracture of shaft of Drive [facility] right femur, [place] [address] [address] [address] encounter for closed [phone] ORTHOPAEDIC fracture SURGERY [place], [place] [address] Social History Tobacco Use Types [...] 02/08/2022 Office Visit Orthopaedics [place] Dupree MD [facility] ER DR ORTHOPAEDIC SURG [place], [place] [address] (Wo rk) documented as of this encounter Visit Diagnoses Diagnosis Displaced oblique fracture of shaft of r ight femur, initial encounter for closed fracture documented in this encounter Care Teams Commercial Real Estate Appraiser Relationship Specialty Start Date End Date Rosalina Rene APRN PCP - General Family Medicine 11/12/19 [place] [address] documented as of this encounter
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
--- OUTSIDE RECORDS SUMMARY | 2022-01-02 11:05 | XMS_ITS | Encounter Summary ---
:1975 Author Organization [facility] [place] [address] Care Team Providers Name Role Phone Phamrolando Rosalina AVNI Primary Care Provider Encounter Details Date Type Department Care Team Description 09/21/2021 Office Visit Orthopaedics at [facility] [place] Scarlett Zelaya, PT S/P MAINEF YANIV Bullard [facility] R f emriver 03/25/[place] [address] PHYSICAL MEDICINE [phone] & [place] [address] Social History Tobacco Use Types Packs/Day Years [...] documented as of this encounter Miscellaneous Notes Treatment - Therapy - Scarlett Zelaya, PT - 09/21/2021 2:00 PM EDT Physical Therapy Treatment Note Total treatment time: 15 minutes Total timed code treatment: 15 minutes Follow up visit for patient with: ICD-10-CM 1. S/P ORIF R talus, IMN R femur 03/25/19 Dr. Dupree S72.331A Goals: To be able to walk and do stairs without pain Subjective: Pt reports that she is 2 + years out from a talus fracture and still having pain in anterior and lateral foot Objective: Patient is ambulating with ER of hip and pushing off lateral border of foot. DF =5 PF =35 IV =10 EV=5 stiffness in talocrural joint MMT EV=4/5 IV=4/5 SL balance difficult on right Gait focusing on push off Calf stretch seated and standing Heel rises x10 Step self mobilization for DF on stair Ankle alphabet ?? No scans are attached to the encounter. Assessment: Further recommended that she would benefit from PT to work on gait balance and proprioception Plan: cont physical therapy at local PT in [place] SCARLETT ZELAYA, PT documented in this encounter Plan of Treatment Upcoming Encounters Date Type Specialty Care Team Description 02/08/2022 Office Visit Orthopaedics Bee Dupree MD [facility] ER DR [facility] [place], [place] [address] (Wo rk) documented as of this encounter Visit Diagnoses Diagnosis S/P ORIF R talus, IMN R femur 03/25/19 Brissa Dupree documented in this encounter Care Teams Steel Turner Relationship Specialty Start Date End Date Rosalina Rene APRN PCP - General Family Medicine 11/12/19 [place] [address] documented as of this encounter
--- OUTSIDE RECORDS SUMMARY | 2022-01-02 11:05 | XMS_ITS | Encounter Summary ---
:1975 Author Organization [facility] [place] [address] Care Team Providers Name Role Phone None Primary Care Provider Unavailable Reason for Visit Reason Comments Follow-up s/p ORIF right talus Encounter Details Date Type Department Care Team Description 04/09/2019 Office Visit Orthopaedics at [facility] S/P ORIF R talus, IMN R [facility] D rive femur 03/25/19 [place] [address] Social History Tobacco Use Types Packs/Day [...] documented as of this encounter Progress Notes [facility] - 04/09/2019 4:45 PM EST Renu Emmanuel presents to the cast room for a cast on per Karla Rainey PA-C . The patient's skinis intact. The patient is placed in a well padded fiberglass short leg cast on the right side. The patient tolerated the procedure well. Details on icing, elevation and proper cast care was discussed with the patient. A cast bag was provided to the patient. The patient was given instruction to call the clinic with any questions or concerns. documented in this encounter Plan of Treatment Upcoming Encounters Date Type Specialty Care Team Description 02/08/2022 Office Visit Orthopaedics Bee Dupree MD [facility] DR ORTHOPAEDIC SURG [facility] [place], [place] [address] (Wo rk) documented as of this encounter Visit Diagnoses Diagnosis S/P ORIF R talus, IMN R femur 03/25/19 Brissa Dupree documented in this encounter Care Teams Second Cook And Baker Relationship Specialty Start Date End Date None PCP - General 03/22/19 11/11/19 None documented as of this encounter
--- OUTSIDE RECORDS SUMMARY | 2022-01-02 11:05 | XMS_ITS | Encounter Summary ---
:1975 Author Organization [facility] Address [facility] [place] [address] Care Team Providers Name Role Phone None Primary Care Provider Unavailable Reason for Visit Reason Comments Follow Up Surgery S/P ORIF R talus, IMN R femu r 03/25/19 Dr. Dupree Encounter Details Date Type Department Care Team Description 05/14/2019 Office [place] [facility] [place] displaced fracture [facility] [place] [id number] routine healing, unspecified fra cture morphology, sub sequent encounter Social History Tobacco Use Types Packs/Day Years [...] this encounter Progress Notes [facility] - 05/14/2019 9:00 AM EST Renu Emmanuel presents to the clinic for a cast off per Alla Schmidt PA-C. The cast was intact upon arrival. The patient was explained how the cast saw works and the cast was removed. The patient tolerated this procedure well. The patient's skin was intact. documented in this encounter Plan of Treatment Upcoming Encounters Date Type Specialty Care Team Description 02/08/2022 Office Visit Orthopaedics Bee Dupree MD [facility] ER DR ORTHOPAEDIC SURG [place], [place] [address] (Wo rk) documented as of this encounter Visit Diagnoses Diagnosis Closed displaced fracture of right talus with routine healing, unspecified fracture morphology, subsequent encounter documented in this encounter Care Teams Asbestos Remover Relationship Specialty Start Date End Date None PCP - General 03/22/19 11/11/19 None documented as of this encounter
--- OUTSIDE RECORDS SUMMARY | 2022-01-02 11:05 | XMS_ITS | Encounter Summary ---
:1975 Author Organization [facility] [place] [address] Care Team Providers Name Role Phone None Primary Care Provider Unavailable Reason for Visit Reason Onset Date Comments Appointment 05/18/2019 Encounter Details Date Type Department Care Team Description 05/18/2019 Telephone Orthopaedics at [facility] [place] Alla Schmidt PA Appointment [facility] [place] [address] [place] [address] ORTHOPAEDIC SURGERY [phone] [place] [id number] (Wo rk) Social History Tobacco Use Types [...] this encounter Miscellaneous Notes Telephone Encounter - Taylor Littlejohn - 05/27/2019 11:22 AM EST No response from patient, letter sent Telephone Encounter - Joslyn Sevilla - 05/20/2019 9:03 AM EST LM #2 to complete safety questions, schedule CT, Schedule follow to go over results. Telephone Encounter - Joslyn Sevilla - 05/18/2019 1:38 PM EST LM # to complete safety questions and schedule CT and follow up to review results documented in this encounter Plan of Treatment Upcoming Encounters Date Type Specialty Care Team Description 02/08/2022 Office Visit Orthopaedics Bee Dupree MD [facility] DR ORTHOPAEDIC SURG [place], [place] [address] (Wo rk) documented as of this encounter Visit Diagnoses Not on filedocumented in this encounter Care Teams Cardiology Consultants Relationship Specialty Start Date End Date None PCP - General 03/22/19 11/11/19 None documented as of this encounter
--- OUTSIDE RECORDS SUMMARY | 2022-01-02 11:05 | XMS_ITS | Encounter Summary ---
:1975 Author Organization [facility] Address [place] [address] Care Team Providers Name Role Phone Rosalina Rene APRN Primary Care Provider Encounter Details Date Type Department Care Team Description 11/12/2019 Hospital Encounter [place] [facility] Dupree S/P ORIF R [facility] Dr Mervat MD IMN R femur 03/25/19 [place], [place] [facility] Dr[address] Dupree [id number] [place] [phone] [place] [address] Social History Tobacco Use Types Packs/Day Years [...] Visit Orthopaedics Bee Dupree MD [facility] DR ORTHOPAEDIC SURG [facility], [place] [address] (Wo rk) documented as of this encounter Procedures Procedure Name Priority Date/Time Associated Diagnosis Comme nts XR ANKLE MIN 3 Routine 11/12/2019 2:16 PM S/P ORIF R talus, Re sults for this VIEWS RIGHT EDT IMN R femur 03/25/19 procedu re are [...] please contact e number below. ? Narrative 11/12/2019 2:25 PM [...] and tilt. * ??Subtalar joint as incongruent cnc lathe machinist ior subtalar joint with anterior subluxation of [...] Dupree documented in this encounter Care Teams Post Tronic Machine Operator Relationship Specialty Start Date End Date Rosalina Rene APRN PCP - General Family Medicine 11/12/19 [address] [place] [address] documented as of this encounter
--- OUTSIDE RECORDS SUMMARY | 2022-01-02 11:05 | XMS_ITS | Encounter Summary ---
:1975 Author Organization [facility] [place] [address] Care Team Providers Name Role Phone None Primary Care Provider Unavailable Reason for Visit Reason Comments Follow Up Surgery ORIF R TALUS,IMN R FEMUR DOS 03/25/19 DOI 03/22/19 Encounter Details Date Type Department Care Team Description 06/14/2019 Office Visit Orthopaedics at [facility] [place] Alla Schmidt Closed displaced fracture of right talus with routine healing, unspecified fracture morphology, subsequent encounter; [facility] Ashley S/P ORIF R talus, IMN R femur 03/25/19 [place] [address] [place] [address] ORTHOPAEDIC SURGERY [place], [place] [address] Social History Tobacco Use Types [...] Sign Reading Time Taken Comments Blood Pressure 107/75 06/14/2019 10:01 AM EST Pulse 77 06/14/2019 10:01 AM EST Temperature - - Respiratory Rate - - Oxygen Saturation - - Inhaled Oxygen Concentration - - Weight 65.8 kg (145 lb) 06/14/2019 10:01 AM EST VERBAL Height 157.5 cm (5' 2) 06/14/2019 10:01 AM EST VERBAL Body Mass Index 26.52 06/14/2019 10:01 AM EST documented in this encounter Progress Notes Alla Schmidt PA - 06/14/2019 10:30 AM EST PATIENT NAME: Renu Emmanuel AGE: 44 y.o. MR#: [id number] DATE OF VISIT: 06/14/2019 CHIEF COMPLAINT: 2-1/2 months s/p ORIF right talus and right IMN placed by Dr. Dupree 03/25/19 HISTORY OF PRESENT ILLNESS: Ms. Emmanuel is a 44 y.o. female who comes into clinic today for evaluationof the right leg. She comes to clinic today to review the CT results. She has not had a look at these results yet. She has not been working with physical therapy as she never heard from [facility]. Past medical history: Patient Active Problem List [...] sweats or chills Vital signs: Blood pressure 107/75, pulse 77, height 157.5 cm (5' 2), weight 65.8 kg (145 lb). Physical exam: Ms. Emmanuel is a 44 y.o. female who is alert and oriented. She is in no acute discomfort and is resting comfortably in the exam room. Demonstrates Extension of the knee to 5 degrees shy of complete Flexion 110 Dorsiflexion 5 degrees Plantarflexion 20 degrees No inversion eversion motion PT/DP pulses 2+. Superficial peroneal, deep peroneal, sural, saphenous, and tibial nerves intact to touch. Imaging studies: CT obtained 06/10/2019: Comminuted displaced intra-articular fracture of the talus with obliteration of most of the fracturelines. We are still able to visualize medial and posterior subtalar articular surface fracture lines. Fracture lines of the comminuted intra-articular cuboid fracture have become less distinct. There is malalignment of the talonavicular and posterior subtalar joints. There is step-off at the talar subchondral plate and the medial sub-talar joint. Malalignment at the posterior subtalar joint with medially translated Calc and eccentric widening of the posterior subtalar joint. Malalignment and medial subluxation of the navicular bone with lateral tilt.. Assessment and plan:: 44 y.o. year-old female 2 months s/p right IMN placed for femur fracture and s/p ORIF talus with concern for subluxing subtalar joint Plan discussed in conjunction with Dr Mcintosh. We had a long discussion regarding right femur fracture and right talus fracture.. Comminuted displaced intra-articular fracture of the talus with obliteration of most of the fracturelines. We are still able to visualize medial and posterior subtalar articular surface fracture lines. Fracture lines of the comminuted intra-articular cuboid fracture have become less distinct. There is malalignment of the talonavicular and posterior subtalar joints. There is step-off at the talar subchondral plate and the medial sub-talar joint. Malalignment at the posterior subtalar joint with medially translated Calc and eccentric widening of the posterior subtalar joint. Malalignment and medial subluxation of the navicular bone with lateral tilt.. We discussed the occurrence of posttraumatic arthritis due to malalignment. I would like to review these results with Dr. Smith for recommendations. Renu consents to a phone call to her home phone number as well as answering machine message and message left with both her mother and her father. Alla Schmidt PA-C documented in this encounter Plan of Treatment Upcoming Encounters Date Type Specialty Care Team Description 02/08/2022 Office Visit Orthopaedics Bee Dupree MD [facility] DR ORTHOPAEDIC SURG [place], [place] [address] (Wo rk) documented as of this encounter Visit Diagnoses Diagnosis Closed displaced fracture of right talus with routine healing, unspecified fracture morphology, subsequent encounter S/P ORIF R talus, IMN R femur 03/25/19 Brissa Dupree documented in this encounter Care Teams Machine Pecan Picker Relationship Specialty Start Date End Date None PCP - General 03/22/19 11/11/19 None documented as of this encounter
--- OUTSIDE RECORDS SUMMARY | 2022-01-02 11:07 | XMS_ITS | Encounter Summary ---
:1975 Author Organization [facility] [place] [address] Care Team Providers Name Role Phone None Primary Care Provider Unavailable Encounter Details Date Type Department Care Team Description 03/26/2019 Notes Only [place] [facility] [place] [address] Social History Tobacco Use Types Packs/Day Years Used Date Never Assessed Alcohol Habits Answer Date Recorded How often [...] documented as of this encounter Progress Notes Rosanne Milan - 03/26/2019 11:09 AM EDT Patient Renu Emmanuel excluded from study Prevent Clot [id number] on 03/25/2019 because,the patient wanted to talk to her doctor about staying on aspirin. DECLINED documented in this encounter Plan of Treatment Upcoming Encounters Date Type Specialty Care Team Description 02/08/2022 Office Visit Orthopaedics Bee Dupree MD [facility] DR ORTHOPAEDIC SURG [place], [place] [address] (Wo rk) documented as of this encounter Visit Diagnoses Not on filedocumented in this encounter Care Teams Char Conveyor Tender Cellar Relationship Specialty Start Date End Date None PCP - General 03/22/19 11/11/19 None documented as of this encounter
--- OUTSIDE RECORDS SUMMARY | 2022-01-02 11:07 | XMS_ITS | Encounter Summary ---
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 [facility]OR[facility] Eosinophils Abs 0.2 0.0 - 0.4 [facility] x10(3)/[facility] LABORATORY Basophils % 0.3 % [facility]OR[facility] Basophils Abs 0.0 0.0 - 0.1 [facility] x10(3)/[facility] LABORATORY Immature Gran % 1.00 % [facility] LABORATORY Comment: Immature granulocytes(IG's)percentage an d absolute count will include metamyelocytes, myelocytes, and promyelo cytes. Blood smears from CBCs yielding IG's will be scanned manually for concor dance. If this scan disagrees with the automated IG or if promyelocytes are not ed, a manual differential will be performed. Jennifer Gran Abs 0.09 (H) 0.00 - 0.04 x10(3)/[facility] LABORATORY Specimen Anatomical Collection Method Collection Time Receive d Time (Source) Location / / Volume Laterality Blood specimen 03/26/2019 3:17 AM 019 3:27 (specimen) EDT AM EDT Resulting Agency Comment Spec In Lab Joseluis Ackerman MD HEMATOLOGY ORDERABLES Performing Organization Address City/State/[place] [address] (ABNORMAL) Hemogram (03/26/2019 3:17 AM EDT) Analysis Performed At Patho logist Time Signature WBC 9.4 4.0 - 9.5 [facility] x10(3)/[facility] LABORATORY RBC 2.49 (L) 4.00 - [facility] 5.21 [facility] x10(6)/[facility] LABORATORY Hemoglobin 7.1 (L) 11.7 - [facility] 15.5 gm/dL [facility] LABORATORY Hematocrit 21.8 (L) 35.7 - [facility] 45.8 % [facility] LABORATORY MCV 87.6 82.6 - [facility] 94.4 fL [facility] LABORATORY MCH 28.5 27.1 - [facility] 32.0 pg [facility] LABORATORY MCHC 32.6 31.7 - [facility] 35.0 gm/dL [facility] LABORATORY Platelets 174 145 - 357 [facility] x10(3)/[facility] LABORATORY RDWSD 52.3 (H) 37.0 - [facility] 46.0 [facility] LABORATORY RDWCV 16.9 (H) 11.5 - [facility] 14.1 % [facility] LABORATORY MPV 9.9 7.6 - 12.9 [facility] LABORATORY nRBC % Auto 0.0 % [facility] LABORATORY nRBC Abs Auto 0.000 0.000 - [facility] 0.000 [facility] x10(3)/[facility] LABORATORY Specimen Anatomical Collection Method Collection Time Receive d Time (Source) Location / / Volume Laterality Blood specimen 03/26/2019 3:17 AM 019 3:27 (specimen) EDT AM EDT Resulting Agency Comment Spec In Lab Joseluis Ackerman MD HEMATOLOGY ORDERABLES Performing Organization Address City/State/[place] [address] (ABNORMAL) Basic Metabolic Panel (non-fasting) (03/26/2019 3:17 AM EDT) athologist Signature Glucose Lvl 104 65 - 199 [facility] mg/dL [facility] LABORATORY Comment: Diabetes: >=200 mg/dL plus symp toms BUN 8 8 - 18 mg/dL [facility] LABORATORY Creatinine 0.48 (L) 0.70 - 1.20 mg/dL [facility] LABORATORY Sodium 142 135 - 145 mmol/L [facility] LABORATORY Potassium 3.5 3.5 - 5.0 mmol/L [facility] LABORATORY Comment: Please note: ??Patients with WBC >100,00 0 may have falsely elevated Potassium levels. ??For accurate Potassium quantif ication in these patients send serum separator tube (gold top) for subsequent determinations. ??Contact the Clinical Chemistry Laboratory if there are any qu estions. Chloride 105 98 - 107 mmol/L [facility] LABORATORY CO2 28 22 - 31 mmol/L [facility] LABORATORY Anion Gap 9 5 - 15 mmol/L [facility] LABORATORY Calcium 8.0 (L) 8.5 - 10.5 mg/dL [facility] LABORATORY Estimated GFR 122 >=60 mL/min/1.73 m?? [facility] LABORATORY Comment: The eGFR was calculated using the CKD-EP I equation. As with all creatinine based estimates of kidney function, eGFR values calculated with the CKD-EPI equation are not accurate in patients wi th acute kidney failure, extremes of body mass or the acutely ill. [email or web address] TULSAnk eGFR 141 >=60 mL/min/1.73 m?? [facility] LABORATORY Comment: The eGFR was calculated using the CKD-EP I equation. As with all creatinine based estimates of kidney function, eGFR values calculated with the CKD-EPI equation are not accurate in patients wi th acute kidney failure, extremes of body mass or the acutely ill. [email or web address]/[facility] TULSAnkf Specimen Anatomical Collection Method Collection Time Receive d Time (Source) Location / / Volume Laterality Blood specimen 03/26/2019 3:17 AM 019 3:27 (specimen) EDT AM EDT Resulting Agency Comment Spec In Lab Bin Encinas MD CHEMISTRY ORDERABLES Performing Organization Address City/State/ZIP Code Phon e Number [place] [id number] LAB[address]ORY Drive (ABNORMAL) Hepatic Function Panel (03/26/2019 3:17 AM EDT) P athologist Signature Total Protein 5.0 (L) 6.1 - 8.0 [facility] gm/dL [facility] LABORATORY Albumin 2.6 (L) 3.2 - 5.2 [facility] gm/dL [facility] LABORATORY AST 33 (H) 0 - 30 [facility] unit/L [facility] LABOR[facility]ORY ALT 25 0 - 30 [facility] unit/L [facility] LABORATORY Alk Phos 38 35 - 105 [facility] unit/L [facility]ATORY Total 0.3 0.2 - 1.3 [facility] Bilirubin mg/dL [facility] LABORATORY Bili, Direct 0.1 0.0 - 0.3 [facility] mg/dL [facility] LABORATORY Specimen Anatomical Collection Method Collection Time Receive d Time (Source) Location / / Volume Laterality Blood specimen 03/26/2019 3:17 AM 019 3:27 (specimen) EDT AM EDT Resulting Agency Comment Spec In Lab Bin Encinas MD CHEMISTRY ORDERABLES Performing Organization Address City/[facility]/ZIP [facility] [place] [address] XR Fluoro No Rad <1Hr - OR Use (03/25/2019 11:54 AM EDT) Specimen (Source) Anatomical Location Collection Method / Collectio n Time Received Time / Laterality Volume Narrative DH RAD - 03/25/2019 11:54 AM EDT This exam is auto-finalizing. No interpr etation was done. Bin Encinas MD IMG FLUORO ORDERABLES Performing Organization Address City/[facility]/ZIP Code Phon e Number DH RAD DH RAD [place], [place] (ABNORMAL) Differential, Automated (03/25/2019 2:28 AM EDT) [facility] gist Method Time Signature Neutrophils % 70.5 % [facility]ORATORY Neutr Abs (ANC) 7.74 (H) 1.70 - [facility] 6.10 [facility] x10(3)[facility] LABORATORY Lymphocytes % 14.4 % [facility]OR[facility] Lymphocytes Abs 1.6 0.9 - 3.2 [facility] x10(3)[facility] LABORATORY Monocytes % 9.4 % [facility]ORATORY Monocyte Abs 1.0 (H) 0.3 - 0.9 [facility] x10(3)/[facility] LABORATORY Eosinophils % 4.7 % [facility]AT[facility] Eosinophils Abs 0.5 (H) 0.0 - 0.4 [facility] x10(3)/[facility] LABORATORY Basophils % 0.5 % [facility]ORAT[facility] Basophils Abs 0.0 0.0 - 0.1 [facility] x10(3)[facility] LABORATORY Immature Gran % 0.50 % [facility]ATORY Comment: Immature granulocytes(IG's)percentage an d absolute count will include metamyelocytes, myelocytes, and promyelo cytes. Blood smears from CBCs yielding IG's will be scanned manually for concdiego dandaysi. If this scan disagrees with the automated IG or if promyelocytes are not ed, a manual differential will be performed. Jennifer Gran Abs 0.05 (H) 0.00 - 0.04 x10(3)/[facility] LABORATORY Specimen Anatomical Collection Method Collection Time Receive d Time (Source) Location / / Volume Laterality Blood specimen 03/25/2019 2:28 AM 019 3:09 (specimen) EDT AM EDT Resulting Agency Comment Spec In Lab Tk Belle MD HEMATOLOGY ORDERABLES Performing Organization Address City/State/[place] [address] (ABNORMAL) Hemogram (03/25/2019 2:28 AM EDT) Analysis Performed At Patho logist Time Signature WBC 11.0 (H) 4.0 - 9.5 [facility] x10(3)/[facility] LABORATORY RBC 2.72 (L) 4.00 - [facility] 5.21 [facility] x10(6)/[facility] LABORATORY Hemoglobin 7.9 (L) 11.7 - [facility] 15.5 gm/dL [facility] LABORATORY Hematocrit 23.4 (L) 35.7 - [facility] 45.8 % [facility] LABORATORY MCV 86.0 82.6 - [facility] 94.4 [facility] LABORATORY MCH 29.0 27.1 - [facility] 32.0 pg [facility] LABORATORY MCHC 33.8 31.7 - [facility] 35.0 gm/dL [facility] LABORATORY Platelets 120 (L) 145 - 357 [facility] x10(3)/[facility] LABORATORY RDWSD 54.6 (H) 37.0 - [facility] 46.0 [facility] LABORATORY RDWCV 17.5 (H) 11.5 - [facility] 14.1 % [facility] LABORATORY MPV 10.3 7.6 - 12.9 [facility] LABORATORY nRBC % Auto 0.0 % [facility]ORAT[facility] nRBC Abs Auto 0.000 0.000 - [facility] 0.000 [facility] x10(3)/[facility] LABORATORY Specimen Anatomical Collection Method Collection Time Receive d Time (Source) Location / / Volume Laterality Blood specimen 03/25/2019 2:28 AM 019 3:09 (specimen) EDT AM EDT Resulting Agency Comment Spec In Lab Tk Belle MD HEMATOLOGY ORDERABLES Performing Organization Address City/[facility]/ZIP Code Phon e Number [address] (ABNORMAL) Hepatic Function Panel (03/25/2019 2:28 AM EDT) P athologist Signature Total Protein 4.4 (L) 6.1 - 8.0 [facility] gm/dL [facility] LABORATORY Albumin 2.5 (L) 3.2 - 5.2 [facility] gm/dL [facility] LABORATORY AST 41 (H) 0 - 30 [facility] ALT 24 0 - 30 [facility] unit/L [facility] Alk Phos 38 35 - 105 [facility] unit/L [facility] LAB[facility]ATORY Total 0.4 0.2 - 1.3 [facility] Bilirubin mg/dL [facility] LABOR[facility] Bili, Direct 0.1 0.0 - 0.3 [facility] mg/dL [facility] LABORATORY Specimen Anatomical Collection Method Collection Time Receive d Time (Source) Location / / Volume Laterality Blood specimen 03/25/2019 2:28 AM 019 3:09 (specimen) EDT AM EDT Resulting Agency Comment Spec In Lab Bin Encinas MD CHEMISTRY ORDERABLES Performing Organization Address City/[facility]/ZIP Code Phon e Number [address] POCT Glucose (03/24/2019 11:59 AM EDT) P athologist Signature POC Glucose 95 65 - 199 [facility] mg/dL [facility] LABORATORY Comment: Supplemental ranges: <140 mg/dL before meals <180 mg/dL all other times of the day Specimen Anatomical Collection Method Collection Time Receive d Time (Source) Location / / Volume Laterality Blood specimen 03/24/2019 11:59 9 (specimen) AM EDT 11:59 AM EDT Sunshine Moncada MD POINT OF CARE TEST ORDERABLE S Performing Organization Address City/State/ZIP Code Phon e Number [address] (ABNORMAL) Hemogram (03/24/2019 11:55 AM EDT) Analysis Performed At Patho logist Time Signature WBC 11.0 (H) 4.0 - 9.5 [facility] x[facility](3[facility] LABORATORY RBC 2.71 (L) 4.00 - [facility] 5.21 [facility] x10(6)/[facility] LABORATORY Hemoglobin 7.7 (L) 11.7 - [facility] 15.5 gm/dL [facility] LABORATORY Hematocrit 22.3 (L) 35.7 - [facility] 45.8 % [facility]AT[facility] MCV 82.3 (L) 82.6 - [facility] 94.4 [facility] LABORATORY MCH 28.4 27.1 - [facility] 32.0 pg [facility] LABORATORY MCHC 34.5 31.7 - [facility] 35.0 gm/dL [facility] LABORATORY Platelets 117 (L) 145 - 357 [facility] x10(3)/[facility] LABORATORY RDWSD 49.0 (H) 37.0 - [facility] 46.0 [facility] LABORATORY RDWCV 16.7 (H) 11.5 - [facility] 14.1 % [facility] LABORATORY MPV 10.5 7.6 - 12.9 [facility] LABORATORY nRBC % Auto 0.0 % [facility] LABORATORY nRBC Abs Auto 0.000 0.000 - [facility] 0.000 [facility] x10(3)/[facility] LABORATORY Specimen Anatomical Collection Method Collection Time Receive d Time (Source) Location / / Volume Laterality Blood specimen 03/24/2019 11:55 9 (specimen) AM EDT 12:05 PM EDT Resulting Agency Comment Spec In Lab Sunshine Moncada MD HEMATOLOGY ORDERABLES Performing Organization Address City/State/[place] [address] POCT Glucose (03/24/2019 7:50 AM EDT) P athologist Signature POC Glucose 94 65 - 199 DEREJE MIKE mg/dL [facility] Comment: Supplemental ranges: <140 mg/dL before meals <180 mg/dL all other times of the day Specimen Anatomical Collection Method Collection Time Receive d Time (Source) Location / / Volume Laterality Blood specimen 03/24/2019 7:50 AM 019 7:50 (specimen) EDT AM EDT Sunshine Moncada MD POINT OF CARE TEST ORDERABLE S Performing Organization Address City/State/[place] [address] (ABNORMAL) Hemogram (03/24/2019 6:00 AM EDT) Analysis Performed At Patho logist Time Signature WBC 10.5 (H) 4.0 - 9.5 DEREJE MIKE x10(3)/[facility] LABORATORY RBC 2.82 (L) 4.00 - DEREJE MIKE 5.21 [facility] x10(6)/[facility] LABORATORY Hemoglobin 8.0 (L) 11.7 - DEREJE MIKE 15.5 gm/dL [facility] Hematocrit 22.6 (L) 35.7 - DEREJE MIKE 45.8 % [facility] MCV 80.1 (L) 82.6 - DEREJE MIKE 94.4 [facility] LABORATORY MCH 28.4 27.1 - DEREJE MIKE 32.0 pg [facility] MCHC 35.4 (H) 31.7 - DEREJE MIKE 35.0 gm/dL [facility] Platelets 110 (L) 145 - 357 DEREJE MIKE x10(3)/[facility] LABORATORY RDWSD 47.8 (H) 37.0 - DEREJE MIKE 46.0 [facility] LABORATORY RDWCV 16.5 (H) 11.5 - DEREJE MIKE 14.1 % [facility] MPV 10.1 7.6 - 12.9 DEREJE MIKE [facility] LABORATORY nRBC % Auto 0.0 % [facility] nRBC Abs Auto 0.000 0.000 - DEREJE MIKE 0.000 [facility] x10(3)/[facility] LABORATORY Specimen Anatomical Collection Method Collection Time Receive d Time (Source) Location / / Volume Laterality Blood specimen 03/24/2019 6:00 AM 019 6:03 (specimen) EDT AM EDT Resulting Agency Comment Spec In Lab Sunshine Moncada MD HEMATOLOGY ORDERABLES Performing Organization Address City/[facility]/ZIP Code Phon e Number [address] Transfuse RBC (03/24/2019 4:06 AM EDT) Sunshine Moncada MD NURSING TREATMENT ORDERABLES - BLOOD ADMIN Transfuse RBC (03/24/2019 4:06 AM EDT) Sunshine Moncada MD NURSING TREATMENT ORDERABLES - BLOOD ADMIN Prepare RBC (03/24/2019 1:35 AM EDT) P athologist Signature Dispensed? Yes [facility] Specimen Anatomical Collection Method Collection Time Receive d Time (Source) Location / / Volume Laterality Blood specimen 03/24/2019 1:35 AM 019 1:32 (specimen) EDT AM EDT Sunshine Moncada MD BLOOD BANK ORDERABLES Performing Organization Address City/[facility]/ZIP Code Phon e Number [address] (ABNORMAL) Hemogram (03/24/2019 12:10 AM EDT) Analysis Performed At Patho logist Time Signature WBC 10.5 (H) 4.0 - 9.5 DEREJE MIKE x10(3)/[facility] LABORATORY RBC 2.48 (L) 4.00 - DEREJE MIKE 5.21 [facility] x10(6)/[facility] LABORATORY Hemoglobin 6.9 (L) 11.7 - [facility] MIKE 15.5 gm/dL [facility] Hematocrit 19.7 (L) 35.7 - DEREJE MIKE 45.8 % [facility] MCV 79.4 (L) 82.6 - DEREJE MIKE 94.4 fL [facility] MCH 27.8 27.1 - DEREJE MIKE 32.0 pg [facility] MCHC 35.0 31.7 - DEREJE MIKE 35.0 gm/dL [facility] Platelets 118 (L) 145 - 357 [facility](3[facility] LABORATORY RDWSD 51.8 (H) 37.0 - [facility] MIKE 46.0 [facility] LABORATORY RDWCV 17.8 (H) 11.5 - [facility] 14.1 % [facility] MPV 10.6 7.6 - 12.9 [facility] LABORATORY nRBC % Auto 0.0 % [facility] nRBC Abs Auto 0.000 0.000 - DEREJE MIKE 0.000 [facility] x10(3)/[facility] LABORATORY Specimen Anatomical Collection Method Collection Time Receive d Time (Source) Location / / Volume Laterality Blood specimen 03/24/2019 12:10 9 (specimen) AM EDT 12:14 AM EDT Resulting Agency Comment Spec In Lab Sunshine Moncada MD HEMATOLOGY ORDERABLES Performing Organization Address City/[facility]/[place] [id number] (ABNORMAL) Prothrombin Time (03/24/2019 12:10 AM EDT) P athologist Signature PT 16.2 (H) 9.4 - 12.5 [facility] LABORATORY INR 1.4 [facility] Comment: An INR <2.0 indicates adequate procoagul ant activity for hemostasis in most patients without underlying bleeding dis orders, though the INR may not adequately reflect hemostatic capacity i n patients with liver disease and synthetic impairment. The recommended ta rget INR range for therapeutic anticoagulation is 2.0 ? 3.0 for most applications, though lower and higher ranges may be appropriate depending on c linical circumstances. Specimen Anatomical Collection Method Collection Time Receive d Time (Source) Location / / Volume Laterality Blood specimen 03/24/2019 12:10 9 (specimen) AM EDT 12:14 AM EDT Resulting Agency Comment Spec In Lab Sunshine Moncada MD HEMATOLOGY ORDERABLES Performing Organization Address City/[facility]/[place] [id number] (ABNORMAL) Hepatic Function Panel (03/24/2019 12:10 AM EDT) athologist Signature Total Protein 4.4 (L) 6.1 - 8.0 [facility] gm/dL [facility] Albumin 2.7 (L) 3.2 - 5.2 [facility] gm/dL [facility] AST 55 (H) 0 - 30 [facility] ALT 29 0 - 30 [facility]L [facility] Alk Phos 34 (L) 35 - 105 [facility]/L [facility] Total 0.6 0.2 - 1.3 [facility] Bilirubin mg/dL [facility] Bili, Direct 0.2 0.0 - 0.3 [facility] mg/dL [facility] Specimen Anatomical Collection Method Collection Time Receive d Time (Source) Location / / Volume Laterality Blood specimen 03/24/2019 12:10 9 (specimen) AM EDT 12:14 AM EDT Resulting Agency Comment Spec In Lab Bin Encinas MD CHEMISTRY ORDERABLES Performing Organization Address City/State/[place] [address] (ABNORMAL) Basic Metabolic Panel (non-fasting) (03/24/2019 12:10 AM EDT) athologist [facility] Glucose Lvl 128 65 - 199 [facility] mg/dL [facility] Comment: Diabetes: >=200 mg/dL plus symp toms BUN 5 (L) 8 - 18 mg/dL [facility] Creatinine 0.49 (L) 0.70 - 1.20 mg/dL [facility] Sodium 140 135 - 145 mmol/L [facility] Potassium 3.9 3.5 - 5.0 mmol/L [facility] Comment: Please note: ??Patients with WBC >100,00 0 may have falsely elevated Potassium levels. ??For accurate Potassium quantif ication in these patients send serum separator tube (gold top) for subsequent determinations. ??Contact the Clinical Chemistry Laboratory if there are any qu estions. Chloride 107 98 - 107 mmol/L [facility] CO2 26 22 - 31 mmol/L [facility] Anion Gap 7 5 - 15 mmol/L [facility] Calcium 7.8 (L) 8.5 - 10.5 mg/dL [facility] Estimated GFR 121 >=60 mL/min/1.73 m?? [facility] Comment: The eGFR was calculated using the CKD-EP I equation. As with all creatinine based estimates of kidney function, eGFR values calculated with the CKD-EPI equation are not accurate in patients wi th acute kidney failure, extremes of body mass or the acutely ill. [email or web address]ULSAnkf eGFR 140 >=60 mL/min/1.73 m?? [facility] Comment: The eGFR was calculated using the CKD-EP I equation. As with all creatinine based estimates of kidney function, eGFR values calculated with the CKD-EPI equation are not accurate in patients wi th acute kidney failure, extremes of body mass or the acutely ill. [email or web address]ULSAnkf Specimen Anatomical Collection Method Collection Time Receive d Time (Source) Location / / Volume Laterality Blood specimen 03/24/2019 12:10 9 (specimen) AM EDT 12:14 AM EDT Resulting Agency Comment Spec In Lab Sunshine Mocnada MD CHEMISTRY ORDERABLES Performing Organization Address City/[facility]/[place] [address] POCT Glucose (03/23/2019 8:35 PM EDT) P athologist Signature POC Glucose 126 65 - 199 [facility] mg/dL [facility] Comment: Supplemental ranges: <140 mg/dL before meals <180 mg/dL all other times of the day Specimen Anatomical Collection Method Collection Time Receive d Time (Source) Location / / Volume Laterality Blood specimen 03/23/2019 8:35 PM 019 8:35 (specimen) EDT PM EDT Sunshine Moncada MD POINT OF CARE TEST ORDERABLE S Performing Organization Address City/[facility]/[place] [address] (ABNORMAL) Hemogram (03/23/2019 5:30 PM EDT) Analysis Performed At Patho logist Time Signature WBC 9.7 (H) 4.0 - 9.5 [facility] x[facility](3[facility] LABORATORY RBC 2.72 (L) 4.00 - DEREJE PALMACOCK 5.21 [facility] x10(6)/[facility] LABORATORY Hemoglobin 7.7 (L) 11.7 - [facility] MIKE 15.5 gm/dL [facility] Hematocrit 21.8 (L) 35.7 - [facility] 45.8 % [facility] MCV 80.1 (L) 82.6 - [facility] 94.4 [facility] LABORATORY MCH 28.3 27.1 - DEREJE MIKE 32.0 pg [facility] MCHC 35.3 (H) 31.7 - DEREJE MIKE 35.0 gm/dL [facility] Platelets 114 (L) 145 - 357 [facility] x10(3)/[facility] LABORATORY RDWSD 49.9 (H) 37.0 - DEREJE MIKE 46.0 [facility] LABORATORY RDWCV 17.2 (H) 11.5 - DEREJE MIKE 14.1 % [facility] MPV 10.5 7.6 - 12.9 [facility] MIKE [facility] LABORATORY nRBC % Auto 0.0 % [facility] nRBC Abs Auto 0.000 0.000 - DEREJE MIKE 0.000 [facility] x10(3)/[facility] LABORATORY Specimen Anatomical Collection Method Collection Time Receive d Time (Source) Location / / Volume Laterality Blood specimen 03/23/2019 5:30 PM 019 5:45 (specimen) EDT PM EDT Resulting Agency Comment Spec In Lab Sunshine Moncada MD HEMATOLOGY ORDERABLES Performing Organization Address City/State/[place] [id number] POCT Glucose (03/23/2019 5:27 PM EDT) P athologist Signature POC Glucose 109 65 - 199 [facility] mg/dL [facility] Comment: Supplemental ranges: <140 mg/dL before meals <180 mg/dL all other times of the day Specimen Anatomical Collection Method Collection Time Receive d Time (Source) Location / / Volume Laterality Blood specimen 03/23/2019 5:27 PM 019 5:27 (specimen) EDT PM EDT Sunshine Moncada MD POINT OF CARE TEST ORDERABLE S Performing Organization Address City/[facility]/ZIP Code Phon e Number [address] XR Fluoro No Rad <1Hr - OR Use (03/23/2019 4:47 PM EDT) Specimen (Source) Anatomical Location Collection Method / Collectio n Time Received Time / Laterality Volume Narrative DH RAD - 03/23/2019 4:48 PM EDT This exam is auto-finalizing. No interpr etation was done. Sunshine Moncada MD IMG FLUORO ORDERABLES Performing Organization Address City/[facility]/ZIP Code Phon e Number DH RAD RAD [place], [place] POCT Glucose (03/23/2019 12:04 PM EDT) P athologist Signature POC Glucose 116 65 - 199 [facility] mg/dL [facility] Comment: Supplemental ranges: <140 mg/dL before meals <180 mg/dL all other times of the day Specimen Anatomical Collection Method Collection Time Receive d Time (Source) Location / / Volume Laterality Blood specimen 03/23/2019 12:04 9 (specimen) PM EDT 12:04 PM EDT Bin Encinas MD POINT OF CARE TEST ORDERABLE S Performing Organization Address City/[facility]/ZIP Code Phon e Number [address] Scan, Peripheral Blood (03/23/2019 10:15 AM EDT) Patholo gist Method Time Signature Plat Estimate Decreased [facility] RBC Morphology Abnormal [facility] Hypochromia Slight [facility] Olivier Cells 1-5 /HPF [facility] Stippled RBCs Present >1/HPF [facility] Specimen Anatomical Collection Method Collection Time Receive d Time (Source) Location / / Volume Laterality Blood specimen 03/23/2019 10:15 9 (specimen) AM EDT 10:44 AM EDT Resulting Agency Comment Spec In Lab Kings Dukes MD HEMATOLOGY ORDERABLES Performing Organization Address City/State/[place] [address] (ABNORMAL) Hemogram (03/23/2019 10:15 AM EDT) Analysis Performed At Patho logist Time Signature WBC 8.3 4.0 - 9.5 [facility] x[facility](3[facility] LABORATORY RBC 2.72 (L) 4.00 - [facility] MIKE 5.21 [facility] x10(6)/[facility] LABORATORY Hemoglobin 7.6 (L) 11.7 - [facility] 15.5 gm/dL [facility] Hematocrit 22.0 (L) 35.7 - [facility] 45.8 % [facility] MCV 80.9 (L) 82.6 - [facility] 94.4 [facility] LABORATORY MCH 27.9 27.1 - DEREJE MIKE 32.0 pg [facility] MCHC 34.5 31.7 - [facility] 35.0 gm/dL [facility] Platelets 69 (L) 145 - 357 [facility] x10(3)/[facility] LABORATORY RDWSD 47.5 (H) 37.0 - [facility] 46.0 [facility] LABORATORY RDWCV 16.4 (H) 11.5 - [facility] MIKE 14.1 % [facility] MPV 10.5 7.6 - 12.9 [facility]ATORY nRBC % Auto 0.0 % [facility] nRBC Abs Auto 0.000 0.000 - [facility] 0.000 [facility] x10(3)/[facility] LABORATORY Specimen Anatomical Collection Method Collection Time Receive d Time (Source) Location / / Volume Laterality Blood specimen 03/23/2019 10:15 9 (specimen) AM EDT 10:44 AM EDT Resulting Agency Comment Spec In Lab Sunshine Moncada MD HEMATOLOGY ORDERABLES Performing Organization Address City/State/ZIP Code Phon e Number [address] (ABNORMAL) Calcium (03/23/2019 10:15 AM EDT) P athologist Signature Calcium 7.1 (L) 8.5 - 10.5 [facility]/dL [facility] Specimen Anatomical Collection Method Collection Time Receive d Time (Source) Location / / Volume Laterality Blood specimen 03/23/2019 10:15 9 (specimen) AM EDT 10:44 AM EDT Resulting Agency Comment Spec In Lab Bin Encinas MD CHEMISTRY ORDERABLES Performing Organization Address City/State/ZIP Code Phon e Number [address] APTT (03/23/2019 10:15 AM EDT) P athologist Signature PTT 27 25 - 37 sec [facility] Comment: The PTT is NOT appropriate for heparin m onitoring. Use the Anti-Xa level for heparin monitoring (HEP UFH) or LMWH mon itoring (HEP LMW). A PTT less than 37 seconds generally indicates adequate hem ostasis. Specimen Anatomical Collection Method Collection Time Receive d Time (Source) Location / / Volume Laterality Blood specimen 03/23/2019 10:15 9 (specimen) AM EDT 10:44 AM EDT Resulting Agency Comment Spec In Lab Bin Encinas MD HEMATOLOGY ORDERABLES Performing Organization Address City/State/ZIP Code Phon e Number [address] EKG 12 Lead (03/23/2019 9:01 AM EDT) Component Value Ref Range Test Analysis Performed Pathologis t Method Time At Signature Ventricular rate 93 BPM MUSE SYSTEM Atrial Rate 93 BPM MUSE SYSTEM P-R Interval 132 ms MUSE SYSTEM QRS Duration 88 ms MUSE SYSTEM Q-T Interval 340 ms MUSE SYSTEM QTC Calculated 422 ms MUSE SYSTEM (Bezet) Calculated P [place] 51 degrees MUSE SYSTEM Calculated R [place] 52 degrees MUSE SYSTEM Calculated T [place] 33 degrees MUSE SYSTEM INTERPRETATION Normal sinus rhythm MUSE SYSTEM Nonspecific T wave abnormality Abnormal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 per tablet 2 tab let 900 (Not Given - Provider: Kristin Hutson RN - Reason: Patient/family refused)2099 (Not Given - Provider: Ramirez Ortiz RN - Reason: See comment - Comment: having loose stools) 0852 (Not Given - Provider: Kristin irving RN - Reason: Patient/family refused)2025 (Given - Provider: Taty Durand RN) 0909 (Given - Provider: Aleksandra Miller RN) 2 tablet, Oral, 2 TIMES DAILY, First dos e on 03/22/19 at 2100, Until Discontinued, Routine Continuous Medication Order 03/29/2019 03/30/2019 03/31/2019 lactated ringers infusion (CANCELED) 0607 (New Bag - P rovider: Ramirez Ortiz RN)1030 (Stopped - Provider: Kristin Hutson, TAZ) 100 mL/hr, at 100 mL/hr, Intravenous, CO NTINUOUS, Starting 03/27/19 at 0615, Until 03/29/19 at 0942 PRN Medication Order 03/29/2019 03/30/2019 03/31/2019 bisacodyl (DULCOLAX) EC tablet 10 mg 10 mg, Oral, 2 TIMES DAILY PRN, Starting 03/22/19 at 1700, Until Fri03/31/19 at 1634, Constipation, DO NOT CRUSH OR OPEN Administer if no bowel movement within 48 hours to achieve: (1) One heidy l movement at least every 48 hours, AND (2) without straining. If multiple PRN bowel medications ordered, start with polyethylene glycol, then lactulose, then oral bisacodyl, then bisacodyl suppository, then magnesium citrate, then tap water enema. Multiple medications may be given concomitantly for constipation., Routine bisacodyl (DULCOLAX) suppository 10 mg 10 mg, Rectal, DAILY PRN, Starting Sat 1 at 0556, Until Fri03/31/19 at 1634, Constipation, Routine ondansetron (ZOFRAN) injection 4 mg 0126 (Given - Provider: Ramirez Ortiz, TAZ) 0915 (Given - Provider: Kristin Hutson, TAZ) 4 mg, Intravenous, EVERY 8 HOURS PRN, St arting Fri03/26/19 at 1702, Until Fri03/31/19 at 1634, Nausea oxyCODONE (ROXICODONE) immediate release tablet 10 mg(Linked Tatiana up 2) 10 mg, Oral, EVERY 4 HOURS PRN, Starting 03/26/19 at 1031, Until Fri03/31/19 at 1634, Pain, severe pain (7-10), May give an additional 5 mg in 30 minutes once if pain not relieved., Routine oxyCODONE (ROXICODONE) immediate release tablet 5 mg(Linked Grou p 2) 5 mg, Oral, EVERY 4 HOURS PRN, Starting Fri03/26/19 at 1031, Until Fri03/31/19 at 1634, Pain, mild to moderate pain (1-6), May give an additional 5 mg in 30 minutes once if pain not relieved., Routine polyethylene glycol (MIRALAX) packet 17 g 17 g, Oral, DAILY PRN, Starting 03/03 at 1659, Until Fri03/31/19 at 1634, Constipation, Administer if no bowel movement within 48 hours to achieve: (1) One bowel movement at least every 48 hours , AND (2) without straining. If multiple PRN bowel medications ordered, start with polyethylene glycol, then lactulose, then oral bisacodyl, then bisacodyl suppository, then magnesium citrate, then tap water enema. Multiple medications may be given concomitantly for constipation., Routine prochlorperazine (COMPAZINE) injection 10 mg 10 mg, Intravenous, EVERY 6 HOURS PRN, S tarting Fri03/26/19 at 2044, Until Fri03/31/19 at 1634, Nausea, Routine sodium chloride 0.9% infusion 10 mL/hr, at 10 mL/hr, Intravenous, CONT INUOUS PRN, Starting Fri03/22/19 at 1645, Until Fri03/31/19 at 1634 Linked Groups Order Group 1: acetaminophen (TYLENOL) tablet 1,000 mgJump to med 1,000 mg, Oral, EVERY 8 HOURS SCHEDULED, First dose on Fri03/22/19 at 1730, Until Discontinued
May give PO or Per Tube, Maximum dose of acetaminophen is 4000 mg from all sources in 24 hours.
Routine Or acetaminophen (Tylenol) (32.02 mg/mL) oral liquid 1,000 mgJump to med 1,000 mg, Oral, EVERY 8 HOURS SCHEDULED, First dose on Fri03/22/19 at 1730, Until Discontinued
May give PO or Per Tube, Maximum dose of acetaminophen is 4000 mg from all sources in 24 hours.&a mp;nbsp;Should be given concomitantly if other Analgesics are ordered.
Routine Or acetaminophen (TYLENOL) suppository 975 mgJump to med 975 mg, Rectal, EVERY 8 HOURS SCHEDULED, First dose on Fri03/22/19 at 1730, Until Discontinued
Maximum dose of acetaminophen is 4000 mg from all sources in 24 hours.
Routine Group 2: oxyCODONE (ROXICODONE) immediate release tablet 5 mgJump to med 5 mg, Oral, EVERY 4 HOURS PRN, Starting Fri03/26/19 at 1031, Until Fri03/31/19 at 1634, Pain, mild to moderate pain (1-6)
May give an additional 5 mg in 30 minutes once if pain not relieved.
Routine Or oxyCODONE (ROXICODONE) immediate release tablet 10 mgJump to med 10 mg, Oral, EVERY 4 HOURS PRN, Starting Fri03/26/19 at 1031, Until Fri03/31/19 at 1634, Pain, severe pain (7-10)
May give an additional 5 mg in 30 minutes once if pain not relieved.
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
--- OUTSIDE RECORDS SUMMARY | 2022-01-02 11:07 | XMS_ITS | Encounter Summary ---
:1975 Author Organization [facility] [place] [address] Care Team Providers Name Role Phone None Primary Care Provider Unavailable Encounter Details Date Type Department Care Team Description 03/25/2019 Orders Only Orthopaedics at [facility] Adam Wilson MD S/P ORIF R rene, IMN [facility] emriver 03/25/19 [place] [address] ORTHOPAEDIC [phone] SURGERY [place], [place] [address] Social History Tobacco Use Types [...] 02/08/2022 Office Visit Orthopaedics Bee Dupree MD [facility] DR ORTHOPAEDIC SURG [place], [place] [address] (Wo rk) documented as of this encounter Results XR Foot Min 3 [...] below. ? Electronically signed by: Johanna Velasquez [facility] ([phone]), at 04/09/2019 4:40 PM Narrative 04/09/2019 4:40 [...] number below. Electronically signed by: Johanna Velasquez [facility] ([phone]), at 04/09/2019 4:40 PM Bee Dupree MD [...] below. ? Electronically signed by: Johanna Velasquez [facility] ([phone]), at 04/09/2019 4:38 PM Narrative 04/09/2019 4:38 [...] number below. Electronically signed by: Johanna Velasquez [facility] ([phone]), at 04/09/2019 4:38 PM Bee Dupree MD IMG DX ORDERABLES documented in this encounter Visit Diagnoses Diagnosis S/P ORIF R talus, IMN R femur 03/25/19 Brissa Dupree S/P ORIF R talus, IMN R femur 03/25/19 Brissa Dupree documented in this encounter Care Teams Supervisor [employer] Relationship Specialty Start Date End Date None PCP - General 03/22/19 11/11/19 None documented as of this encounter
--- OUTSIDE RECORDS SUMMARY | 2022-01-02 11:08 | XMS_ITS | Encounter Summary ---
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 Sodium 135 135 - 145 mmol/L [facility] Potassium 4.2 3.5 - 5.0 mmol/L [facility] Comment: Please note: ??Patients with WBC >100,00 0 may have falsely elevated Potassium levels. ??For accurate Potassium quantif ication in these patients send serum separator tube (gold top) for subsequent determinations. ??Contact the Clinical Chemistry Laboratory if there are any qu estions. Chloride 96 (L) 98 - 107 mmol/L [facility] CO2 29 22 - 31 mmol/L [facility] Anion Gap 10 5 - 15 mmol/L [facility] Calcium 9.2 8.5 - 10.5 mg/dL [facility] Estimated GFR 127 >=60 mL/min/1.73 m?? [facility] Comment: The eGFR was calculated using the CKD-EP I equation. As with all creatinine based estimates of kidney function, eGFR values calculated with the CKD-EPI equation are not accurate in patients wi th acute kidney failure, extremes of body mass or the acutely ill. http://[employer]/[facility] T[facility]IHINAnkf eGFR 148 >=60 mL/min/1.73 m?? [facility] Comment: The eGFR was calculated using the CKD-EP I equation. As with all creatinine based estimates of kidney function, eGFR values calculated with the CKD-EPI equation are not accurate in patients wi th acute kidney failure, extremes of body mass or the acutely ill. http://[employer]/[facility]IHINAnkf Specimen Anatomical Collection Method Collection Time Receive d Time (Source) Location / / Volume Laterality Blood specimen 03/31/2019 10:36 9 (specimen) AM EDT 10:49 AM EDT Resulting Agency Comment Spec In Lab Misha Blanco MD CHEMISTRY ORDERABLES Performing Organization Address City/State/ZIP Code Phon e Number [place] [id number] XR Chest PA & [...] (ABNORMAL) Differential, Automated (03/30/2019 9:11 AM EDT) [facility] Method Time Signature Neutrophils % 56.3 % [facility] Neutr Abs (ANC) 6.36 (H) 1.70 - [facility] 6.10 [facility] x10(3)/[facility] LABORATORY Lymphocytes % 14.1 % [facility] Lymphocytes Abs 1.6 0.9 - 3.2 [facility] x10(3)/[facility] LABORATORY Monocytes % 8.8 % [facility] Monocyte Abs 1.0 (H) 0.3 - 0.9 [facility] x10(3)/[facility] LABORATORY Eosinophils % 10.8 % [facility] Eosinophils Abs 1.2 (H) 0.0 - 0.4 [facility] x10(3)/[facility] LABORATORY Basophils % 0.7 % [facility] Basophils Abs 0.1 0.0 - 0.1 [facility] x10(3)/[facility] LABORATORY Immature Gran % 9.30 % [facility] Comment: Immature granulocytes(IG's)percentage an d absolute count will include metamyelocytes, myelocytes, and promyelo cytes. Blood smears from CBCs yielding IG's will be scanned manually for jac roberts. If this scan disagrees with the automated IG or if promyelocytes are not ed, a manual differential will be performed. Jennifer Gran Abs 1.05 (H) 0.00 - 0.04 x10(3)/[facility] LABORATORY Specimen Anatomical Collection Method Collection Time Receive d Time (Source) Location / / Volume Laterality Blood specimen 03/30/2019 9:11 AM 019 9:26 (specimen) EDT AM EDT Resulting Agency Comment Spec In Lab Joseluis Ackerman MD HEMATOLOGY ORDERABLES Performing Organization Address City/State/[place] [address] (ABNORMAL) Hemogram (03/30/2019 9:11 AM EDT) [facility] gist Method Time Signature WBC 11.3 (H) 4.0 - 9.5 [facility] x[facility](3[facility] LABORATORY RBC 2.96 (L) 4.00 - [place] 5.21 [facility] x10(6)/[facility] LABORATORY Hemoglobin 8.8 (L) 11.7 - [facility] 15.5 gm/dL [facility] LABORATORY Hematocrit 27.5 (L) 35.7 - [facility] 45.8 % [facility]ORATORY MCV 92.9 82.6 - [facility] 94.4 [facility] LABORATORY MCH 29.7 27.1 - [place] 32.0 pg [facility] LABORATORY MCHC 32.0 31.7 - [facility] 35.0 gm/dL [facility] LABORATORY Platelets 462 (H) 145 - 357 [facility] x10(3[facility] LABORATORY RDWSD 56.2 (H) 37.0 - [facility] 46.0 [facility] LABORATORY RDWCV 18.4 (H) 11.5 - [place] [place] 14.1 % [facility] LABORATORY MPV 9.4 7.6 - 12.9 [facility] nRBC % Auto 0.3 % [facility] nRBC Abs Auto 0.030 (H) 0.000 - [facility] 0.000 [facility] x10(3)/[facility] LABORATORY Specimen Anatomical Collection Method Collection Time Receive d Time (Source) Location / / Volume Laterality Blood specimen 03/30/2019 9:11 AM 019 9:26 (specimen) EDT AM EDT Resulting Agency Comment Spec In Lab Joseluis Ackerman MD HEMATOLOGY ORDERABLES Performing Organization Address City/State/[place] [address] (ABNORMAL) Basic Metabolic Panel (non-fasting) (03/30/2019 9:11 AM EDT) athologist Signature Glucose Lvl 111 65 - 199 [facility] mg/dL [facility] Comment: Diabetes: >=200 mg/dL plus symp toms BUN 5 (L) 8 - 18 mg/dL [facility] Creatinine 0.44 (L) 0.70 - 1.20 mg/dL [facility]ORY Sodium 138 135 - 145 mmol/L [facility] Potassium 3.7 3.5 - 5.0 mmol/L [facility] Comment: Please note: ??Patients with WBC >100,00 0 may have falsely elevated Potassium levels. ??For accurate Potassium quantif ication in these patients send serum separator tube (gold top) for subsequent determinations. ??Contact the Clinical Chemistry Laboratory if there are any qu estions. Chloride 100 98 - 107 mmol/L [facility] CO2 27 22 - 31 mmol/L [facility] Anion Gap 11 5 - 15 mmol/L [facility] Calcium 8.5 8.5 - 10.5 mg/dL [facility] Estimated GFR 125 >=60 mL/min/1.73 m?? [facility] Comment: The eGFR was calculated using the CKD-EP I equation. As with all creatinine based estimates of kidney function, eGFR values calculated with the CKD-EPI equation are not accurate in patients wi th acute kidney failure, extremes of body mass or the acutely ill. http://[employer]/DHnkf eGFR 145 >=60 mL/min/1.73 m?? [facility] Comment: The eGFR was calculated using the CKD-EP I equation. As with all creatinine based estimates of kidney function, eGFR values calculated with the CKD-EPI equation are not accurate in patients wi th acute kidney failure, extremes of body mass or the acutely ill. http://[employer]/[facility] TALIHINAnkf Specimen Anatomical Collection Method Collection Time Receive d Time (Source) Location / / Volume Laterality Blood specimen 03/30/2019 9:11 AM 9:26 (specimen) EDT AM EDT Resulting Agency Comment Spec In Lab Bin Encinas MD CHEMISTRY ORDERABLES Performing Organization Address City/[facility] [place] [address] Scan, Peripheral Blood (03/29/2019 1:52 PM EDT) [facility] Method Time Signature Plat Estimate Increased [facility] RBC Morphology Abnormal [facility] Macrocytes 6-10 /HPF [facility] Microcytes 1-5 /HPF [facility] Hypochromia Slight [facility] Polychromasia Present >5/HPF [facility] Stippled RBCs Present >1/HPF [facility] Specimen Anatomical Collection Method Collection Time Receive d Time (Source) Location / / Volume Laterality Blood specimen 03/29/2019 1:52 PM 019 1:58 (specimen) EDT PM EDT Resulting Agency Comment Spec In Lab Joseluis Ackerman MD HEMATOLOGY ORDERABLES Performing Organization Address City/[facility]/[place] [address] (ABNORMAL) Differential, Automated (03/29/2019 1:52 PM EDT) [employer] Method Time Signature Neutrophils % 58.5 % [facility] Neutr Abs (ANC) 6.11 (H) 1.70 - [facility] 6.10 [facility] x10(3)/[facility] L LABORATORY Lymphocytes % 14.6 % [facility] Lymphocytes Abs 1.5 0.9 - 3.2 [facility] x10(3)/[facility] LABORATORY Monocytes % 9.0 % [facility] Monocyte Abs 0.9 0.3 - 0.9 [facility] x10(3)/[facility] LABORATORY Eosinophils % 9.2 % [facility] Eosinophils Abs 1.0 (H) 0.0 - 0.4 [facility] x10(3)/[facility] LABORATORY Basophils % 0.6 % [facility] Basophils Abs 0.1 0.0 - 0.1 [facility] x10(3)/[facility] LABORATORY Immature Gran % 8.10 % [facility] Comment: Immature granulocytes(IG's)percentage an d absolute count will include metamyelocytes, myelocytes, and promyelo cytes. Blood smears from CBCs yielding IG's will be scanned manually for concor dance. If this scan disagrees with the automated IG or if promyelocytes are not ed, a manual differential will be performed. Jennifer Gran Abs 0.85 (H) 0.00 - 0.04 x10(3)/[facility] LABORATORY Specimen Anatomical Collection Method Collection Time Receive d Time (Source) Location / / Volume Laterality Blood specimen 03/29/2019 1:52 PM 019 1:58 (specimen) EDT PM EDT Resulting Agency Comment Spec In Lab Joseluis Ackerman MD HEMATOLOGY ORDERABLES Performing Organization Address City/State/[place] [address] (ABNORMAL) Hemogram (03/29/2019 1:52 PM EDT) Analysis Performed At Patho logist Time Signature WBC 10.4 (H) 4.0 - 9.5 [facility] x10(3)/[facility] LABORATORY RBC 2.80 (L) 4.00 - [facility] 5.21 [facility] x10(6)/[facility] LABORATORY Hemoglobin 8.0 (L) 11.7 - [place] [place] 15.5 gm/dL [facility] LABORATORY Hematocrit 25.2 (L) 35.7 - [place] [place] 45.8 % [facility] LABORATORY MCV 90.0 82.6 - [facility] 94.4 [facility] LABORATORY MCH 28.6 27.1 - [place] [place] 32.0 pg [facility] LABORATORY MCHC 31.7 31.7 - [place] MIKE 35.0 gm/dL [facility] LABORATORY Platelets 365 (H) 145 - 357 [facility] x10(3)/[facility] LABORATORY RDWSD 53.3 (H) 37.0 - [facility] 46.0 [facility] LABORATORY RDWCV 17.8 (H) 11.5 - [facility] 14.1 % [facility] LABORATORY MPV 9.3 7.6 - 12.9 [facility] LABORATORY nRBC % Auto 0.0 % [facility] nRBC Abs Auto 0.000 0.000 - [place] 0.000 [facility] x10(3)/[facility] LABORATORY Specimen Anatomical Collection Method Collection Time Receive d Time (Source) Location / / Volume Laterality Blood specimen 03/29/2019 1:52 PM 019 1:58 (specimen) EDT PM EDT Resulting Agency Comment Spec In Lab Joseluis Ackerman MD HEMATOLOGY ORDERABLES Performing Organization Address City/State/[place] [address] (ABNORMAL) Basic Metabolic Panel (non-fasting) (03/29/2019 1:52 PM EDT) athologist Signature Glucose Lvl 98 65 - 199 [facility] mg/dL [facility] Comment: Diabetes: >=200 mg/dL plus symp toms BUN 4 (L) 8 - 18 mg/dL [facility] Creatinine 0.40 (L) 0.70 - 1.20 mg/dL [facility] LABORATORY Sodium 139 135 - 145 mmol/L [facility] Potassium 3.2 (L) 3.5 - 5.0 mmol/L [facility] Comment: Please note: ??Patients with WBC >100,00 0 may have falsely elevated Potassium levels. ??For accurate Potassium quantif ication in these patients send serum separator tube (gold top) for subsequent determinations. ??Contact the Clinical Chemistry Laboratory if there are any qu estions. Chloride 101 98 - 107 mmol/L [facility] CO2 25 22 - 31 mmol/L [facility] Anion Gap 13 5 - 15 mmol/L [facility] Calcium 8.2 (L) 8.5 - 10.5 mg/dL [facility] Estimated GFR 129 >=60 mL/min/1.73 m?? [facility] Comment: The eGFR was calculated using the CKD-EP I equation. As with all creatinine based estimates of kidney function, eGFR values calculated with the CKD-EPI equation are not accurate in patients wi th acute kidney failure, extremes of body mass or the acutely ill. http://[employer]/[facility]INAnkf eGFR 150 >=60 mL/min/1.73 m?? [facility] Comment: The eGFR was calculated using the CKD-EP I equation. As with all creatinine based estimates of kidney function, eGFR values calculated with the CKD-EPI equation are not accurate in patients wi th acute kidney failure, extremes of body mass or the acutely ill. http://[employer]/[facility] T[facility]IHINAnkf Specimen Anatomical Collection Method Collection Time Receive d Time (Source) Location / / Volume Laterality Blood specimen 03/29/2019 1:52 PM 019 1:58 (specimen) EDT PM EDT Resulting Agency Comment Spec In Lab Bin Encinas MD CHEMISTRY ORDERABLES Performing Organization Address City/State/[place] [address] (ABNORMAL) Differential, Automated (03/28/2019 8:27 AM EDT) [facility] gist Method Time Signature Neutrophils % 64.4 % [facility] Neutr Abs (ANC) 7.55 (H) 1.70 - [facility] 6.10 [facility] x10(3)/[facility] LABORATORY Lymphocytes % 15.0 % [facility] Lymphocytes Abs 1.8 0.9 - 3.2 [facility] x10(3)/[facility] LABORATORY Monocytes % 9.0 % [facility] Monocyte Abs 1.1 (H) 0.3 - 0.9 [facility] x10(3)/[facility] LABORATORY Eosinophils % 6.2 % [facility] Eosinophils Abs 0.7 (H) 0.0 - 0.4 [facility] x10(3)/[facility] LABORATORY Basophils % 0.7 % [facility] Basophils Abs 0.1 0.0 - 0.1 [facility] x10(3)/[facility] LABORATORY Immature Gran % 4.70 % [facility] Comment: Immature granulocytes(IG's)percentage an d absolute count will include metamyelocytes, myelocytes, and promyelo cytes. Blood smears from CBCs yielding IG's will be scanned manually for concor dance. If this scan disagrees with the automated IG or if promyelocytes are not ed, a manual differential will be performed. Jennifer Gran Abs 0.55 (H) 0.00 - 0.04 x10(3)/[facility] LABORATORY Specimen Anatomical Collection Method Collection Time Receive d Time (Source) Location / / Volume Laterality Blood specimen 03/28/2019 8:27 AM 019 8:32 (specimen) EDT AM EDT Resulting Agency Comment Spec In Lab Becca Awan [employer] HEMATOLOGY ORDERABLES Performing Organization Address City/State/[place] [address] (ABNORMAL) Hemogram (03/28/2019 8:27 AM EDT) Analysis Performed At Patho logist Time Signature WBC 11.7 (H) 4.0 - 9.5 [facility] x10(3)/[facility] LABORATORY RBC 2.81 (L) 4.00 - [facility] 5.21 [facility] x10(6)/[facility] LABORATORY Hemoglobin 7.9 (L) 11.7 - [facility] OLMEDOMIKE 15.5 gm/dL [facility] LABORATORY Hematocrit 25.3 (L) 35.7 - [place] [place] 45.8 % [facility] LABORATORY MCV 90.0 82.6 - [facility] 94.4 [facility] LABORATORY MCH 28.1 27.1 - [place] [place] 32.0 pg [facility] LABORATORY MCHC 31.2 (L) 31.7 - [facility] OLMEDOMI[facility] 35.0 gm/dL [facility] LABORATORY Platelets 279 145 - 357 [facility] x10(3)/[facility] LABORATORY RDWSD 54.6 (H) 37.0 - [facility] 46.0 [facility] LABORATORY RDWCV 17.5 (H) 11.5 - [facility] MI[place] 14.1 % [facility] LABORATORY MPV 9.7 7.6 - 12.9 [facility] LAB[facility]ATORY nRBC % Auto 0.0 % [facility] nRBC Abs Auto 0.000 0.000 - [place] [place] 0.000 [facility] x10(3)/[facility] LABORATORY Specimen Anatomical Collection Method Collection Time Receive d Time (Source) Location / / Volume Laterality Blood specimen 03/28/2019 8:27 AM 019 8:32 (specimen) EDT AM EDT Resulting Agency Comment Spec In Lab Becca Awan [employer]PER[employer] HEMATOLOGY ORDERABLES Performing Organization Address City/State/[place] [address] (ABNORMAL) Basic Metabolic Panel (non-fasting) (03/28/2019 6:23 AM EDT) P athologist Signature Glucose Lvl 90 65 - 199 [facility] mg/dL [facility]ORY Comment: Diabetes: >=200 mg/dL plus symp toms BUN 9 8 - 18 mg/dL [facility] Creatinine 0.37 (L) 0.70 - 1.20 mg/dL [facility] LABORATORY Sodium 139 135 - 145 mmol/L [facility] Potassium 3.5 3.5 - 5.0 mmol/L [facility] Comment: Please note: ??Patients with WBC >100,00 0 may have falsely elevated Potassium levels. ??For accurate Potassium quantif ication in these patients send serum separator tube (gold top) for subsequent determinations. ??Contact the Clinical Chemistry Laboratory if there are any qu estions. Chloride 102 98 - 107 mmol/L [facility] CO2 26 22 - 31 mmol/L [facility] Anion Gap 11 5 - 15 mmol/L [facility] Calcium 7.8 (L) 8.5 - 10.5 mg/dL [facility] Estimated GFR 133 >=60 mL/min/1.73 m?? [facility] Comment: The eGFR was calculated using the CKD-EP I equation. As with all creatinine based estimates of kidney function, eGFR values calculated with the CKD-EPI equation are not accurate in patients wi th acute kidney failure, extremes of body mass or the acutely ill. http://[employer]/[facility] TALIHINAnkf eGFR 154 >=60 mL/min/1.73 m?? [facility] Comment: The eGFR was calculated using the CKD-EP I equation. As with all creatinine based estimates of kidney function, eGFR values calculated with the CKD-EPI equation are not accurate in patients wi th acute kidney failure, extremes of body mass or the acutely ill. http://[email or web address] Specimen Anatomical Collection Method Collection Time Receive d Time (Source) Location / / Volume Laterality Blood specimen 03/28/2019 6:23 AM 019 6:27 (specimen) EDT AM EDT Resulting Agency Comment Spec In Lab Bin Encinas MD CHEMISTRY ORDERABLES Performing Organization Address City/State/[place] [address] Scan, Peripheral Blood (03/27/2019 9:54 AM EDT) P athologist Signature Plat Estimate Normal [facility] RBC Morphology Normal [facility] Specimen Anatomical Collection Method Collection Time Receive d Time (Source) Location / / Volume Laterality Blood specimen 03/27/2019 9:54 AM 019 (specimen) EDT 10:19 AM EDT Resulting Agency Comment Spec In Lab Nicole Dawn APRN HEMATOLOGY ORDERABLES Performing Organization Address City/State/[place] [address] (ABNORMAL) Differential, Automated (03/27/2019 9:54 AM EDT) [facility] Method Time Signature Neutrophils % 67.9 % [facility] Neutr Abs (ANC) 8.32 (H) 1.70 - [facility] 6.10 [facility] x10(3)/[facility] LABORATORY Lymphocytes % 14.8 % [facility] Lymphocytes Abs 1.8 0.9 - 3.2 [facility] x10(3)/[facility] LABORATORY Monocytes % 12.8 % [facility] Monocyte Abs 1.6 (H) 0.3 - 0.9 [facility] x10(3)/[facility] LABORATORY Eosinophils % 2.0 % [facility] Eosinophils Abs 0.2 0.0 - 0.4 [facility] x10(3)/[facility] LABORATORY Basophils % 0.3 % [facility] Basophils Abs 0.0 0.0 - 0.1 [facility] x10(3)/[facility] LABORATORY Immature Gran % 2.20 % [facility] Comment: Immature granulocytes(IG's)percentage an d absolute count will include metamyelocytes, myelocytes, and promyelo cytes. Blood smears from CBCs yielding IG's will be scanned manually for concor dance. If this scan disagrees with the automated IG or if promyelocytes are not ed, a manual differential will be performed. Jennifer Gran Abs 0.27 (H) 0.00 - 0.04 x10(3)/[facility] LABORATORY Specimen Anatomical Collection Method Collection Time Receive d Time (Source) Location / / Volume Laterality Blood specimen 03/27/2019 9:54 AM 019 (specimen) EDT 10:19 AM EDT Resulting Agency Comment Spec In Lab Nicole Dawn APRN HEMATOLOGY ORDERABLES Performing Organization Address City/State/[place] [address] (ABNORMAL) Hemogram (03/27/2019 9:54 AM EDT) [facility] gist Method Time Signature WBC 12.3 (H) 4.0 - 9.5 [facility] x10(3)/[facility] LABORATORY RBC 3.28 (L) 4.00 - [facility] 5.21 [facility] x10(6)/[facility] LABORATORY Hemoglobin 9.3 (L) 11.7 - [facility] 15.5 gm/dL [facility] LABORATORY Hematocrit 28.8 (L) 35.7 - [facility] 45.8 % [facility] LABORATORY MCV 87.8 82.6 - [facility] 94.4 [facility] LABORATORY MCH 28.4 27.1 - [facility] 32.0 pg [facility] LABORATORY MCHC 32.3 31.7 - [facility] 35.0 gm/dL [facility] LABORATORY Platelets 269 145 - 357 [facility] x[facility](3[facility] LABORATORY RDWSD 53.0 (H) 37.0 - [facility] 46.0 [facility] LABORATORY RDWCV 17.9 (H) 11.5 - [facility] 14.1 % [facility] LABORATORY MPV 10.1 7.6 - 12.9 [facility] LABORATORY nRBC % Auto 0.2 % [facility] nRBC Abs Auto 0.020 (H) 0.000 - [facility] 0.000 [facility] x10(3)/[facility] LABORATORY Specimen Anatomical Collection Method Collection Time Receive d Time (Source) Location / / Volume Laterality Blood specimen 03/27/2019 9:54 AM 019 (specimen) EDT 10:19 AM EDT Resulting Agency Comment Spec In Lab Nicole Dawn APRN HEMATOLOGY ORDERABLES Performing Organization Address City/State/[place] [address] (ABNORMAL) Basic Metabolic Panel (non-fasting) (03/27/2019 9:54 AM EDT) athologist Signature Glucose Lvl 104 65 - 199 [facility] mg/dL [facility] Comment: Diabetes: >=200 mg/dL plus symp toms BUN 10 8 - 18 mg/dL [facility] Creatinine 0.37 (L) 0.70 - 1.20 mg/dL [facility] LABORATORY Sodium 140 135 - 145 mmol/L [facility] Potassium 3.8 3.5 - 5.0 mmol/L [facility] Comment: Please note: ??Patients with WBC >100,00 0 may have falsely elevated Potassium levels. ??For accurate Potassium quantif ication in these patients send serum separator tube (gold top) for subsequent determinations. ??Contact the Clinical Chemistry Laboratory if there are any qu estions. Chloride 101 98 - 107 mmol/L [facility] CO2 28 22 - 31 mmol/L [facility] Anion Gap 11 5 - 15 mmol/L [facility] Calcium 8.2 (L) 8.5 - 10.5 mg/dL [facility] Estimated GFR 133 >=60 mL/min/1.73 m?? [facility] Comment: The eGFR was calculated using the CKD-EP I equation. As with all creatinine based estimates of kidney function, eGFR values calculated with the CKD-EPI equation are not accurate in patients wi th acute kidney failure, extremes of body mass or the acutely ill. http://[employer]/[facility] TALIHINAnkf eGFR 154 >=60 mL/min/1.73 m?? [facility] Comment: The eGFR was calculated using the CKD-EP I equation. As with all creatinine based estimates of kidney function, eGFR values calculated with the CKD-EPI equation are not accurate in patients wi th acute kidney failure, extremes of body mass or the acutely ill. http://[employer]/[facility] TALIHINAnkf Specimen Anatomical Collection Method Collection Time Receive d Time (Source) Location / / Volume Laterality Blood specimen 03/27/2019 9:54 AM 019 (specimen) EDT 10:19 AM EDT Resulting Agency Comment Spec In Lab Nicole Dawn [employer]PER[employer] CHEMISTRY ORDERABLES Performing Organization Address City/State/ZIP Code Phon e Number [place] [id number] XR Abdomen 1 view [...] contact e number below. ? Narrative 03/26/2019 10:08 PM [...] For questions regarding this report, please contact [facility] number below. Bin Encinas MD IMG DX [...] contact e number below. Bin Encinas MD IM DX ORDERABLES (ABNORMAL) Differential, Automated (03/26/2019 3:17 AM EDT) [facility] Method Time Signature Neutrophils % 73.5 % [facility] Neutr Abs (ANC) 6.89 (H) 1.70 - [facility] 6.10 [facility] x10(3)/[facility] LABORATORY Lymphocytes % 13.6 % [facility] Lymphocytes Abs 1.3 0.9 - 3.2 [facility] x10(3)/[facility] LABORATORY Monocytes % 9.7 % [facility] Monocyte Abs 0.9 0.3 - 0.9 [facility] x10(3)/[facility] LABORATORY Eosinophils % 1.9 % [facility] Eosinophils Abs 0.2 0.0 - 0.4 [facility] x10(3)/[facility] LABORATORY Basophils % 0.3 % [facility] Basophils Abs 0.0 0.0 - 0.1 [facility] x10(3)/[facility] LABORATORY Immature Gran % 1.00 % [facility] Comment: Immature granulocytes(IG's)percentage an d absolute count will include metamyelocytes, myelocytes, and promyelo cytes. Blood smears from CBCs yielding IG's will be scanned manually for concor dance. If this scan disagrees with the automated IG or if promyelocytes are not ed, a manual differential will be performed. Jennifer Gran Abs 0.09 (H) 0.00 - 0.04 x10(3)/[facility] LABORATORY Specimen Anatomical Collection Method Collection Time Receive d Time (Source) Location / / Volume Laterality Blood specimen 03/26/2019 3:17 AM 019 3:27 (specimen) EDT AM EDT Resulting Agency Comment Spec In Lab Joseluis Ackerman MD HEMATOLOGY ORDERABLES Performing Organization Address City/State/[place] [address] (ABNORMAL) Hemogram (03/26/2019 3:17 AM EDT) Analysis Performed At Patho logist Time Signature WBC 9.4 4.0 - 9.5 [facility] x10(3)/[facility] LABORATORY RBC 2.49 (L) 4.00 - [facility] 5.21 [facility] x10(6)/[facility] LABORATORY Hemoglobin 7.1 (L) 11.7 - [facility] 15.5 gm/dL [facility] LABORATORY Hematocrit 21.8 (L) 35.7 - [facility] 45[facility]8 % [facility] LABORATORY MCV 87.6 82.6 - [facility] 94.4 fL [facility] LABORATORY MCH 28.5 27.1 - [facility] 32.0 pg [facility] LABORATORY MCHC 32.6 31.7 - [facility] 35.0 gm/dL [facility] LABORATORY Platelets 174 145 - 357 [facility] x10(3)/[facility] LABORATORY RDWSD 52.3 (H) 37.0 - [facility] 46.0 [facility] LABORATORY RDWCV 16.9 (H) 11.5 - [facility] 14.1 % [facility] LABORATORY MPV 9.9 7.6 - 12.9 [facility] LABORATORY nRBC % Auto 0.0 % [facility] nRBC Abs Auto 0.000 0.000 - [facility] 0.000 [facility] x10(3)/[facility] LABORATORY Specimen Anatomical Collection Method Collection Time Receive d Time (Source) Location / / Volume Laterality Blood specimen 03/26/2019 3:17 AM 019 3:27 (specimen) EDT AM EDT Resulting Agency Comment Spec In Lab Joseluis Ackerman MD HEMATOLOGY ORDERABLES Performing Organization Address City/State/[place] [address] (ABNORMAL) Basic Metabolic Panel (non-fasting) (03/26/2019 3:17 AM EDT) P athologist Signature Glucose Lvl 104 65 - 199 [facility] mg/dL [facility] Comment: Diabetes: >=200 mg/dL plus symp toms BUN 8 8 - 18 mg/dL [facility] Creatinine 0.48 (L) 0.70 - 1.20 mg/dL [facility] LABORATORY Sodium 142 135 - 145 mmol/L [facility] Potassium 3.5 3.5 - 5.0 mmol/L [facility] Comment: Please note: ??Patients with WBC >100,00 0 may have falsely elevated Potassium levels. ??For accurate Potassium quantif ication in these patients send serum separator tube (gold top) for subsequent determinations. ??Contact the Clinical Chemistry Laboratory if there are any qu estions. Chloride 105 98 - 107 mmol/L [facility] CO2 28 22 - 31 mmol/L [facility] Anion Gap 9 5 - 15 mmol/L [facility] Calcium 8.0 (L) 8.5 - 10.5 mg/dL [facility] K [facility]ORY Estimated GFR 122 >=60 mL/min/1.73 m?? [facility] Comment: The eGFR was calculated using the CKD-EP I equation. As with all creatinine based estimates of kidney function, eGFR values calculated with the CKD-EPI equation are not accurate in patients wi th acute kidney failure, extremes of body mass or the acutely ill. http://[employer]/[facility] Children [facility] PhiladelphiaEnkari, [employer] eGFR 141 >=60 mL/min/1.73 m?? [facility] Comment: The eGFR was calculated using the CKD-EP I equation. As with all creatinine based estimates of kidney function, eGFR values calculated with the CKD-EPI equation are not accurate in patients wi th acute kidney failure, extremes of body mass or the acutely ill. http://[employer]/[facility] TALIHINAnk Specimen Anatomical Collection Method Collection Time Receive d Time (Source) Location / / Volume Laterality Blood specimen 03/26/2019 3:17 AM 019 3:27 (specimen) EDT AM EDT Resulting Agency Comment Spec In Lab Bin Encinas MD CHEMISTRY ORDERABLES Performing Organization Address City/State/[place] [address] (ABNORMAL) Hepatic Function Panel (03/26/2019 3:17 AM EDT) P athologist Signature Total Protein 5.0 (L) 6.1 - 8.0 [facility] gm/dL [facility] Albumin 2.6 (L) 3.2 - 5.2 [facility] gm/dL [facility]ORY AST 33 (H) 0 - 30 [facility] unit/L [facility]ORY ALT 25 0 - 30 [facility] unit/L [facility]ORY Alk Phos 38 35 - 105 [facility] unit/L [facility]ORY Total 0.3 0.2 - 1.3 [facility] Bilirubin mg/dL [facility]ORY Bili, Direct 0.1 0.0 - 0.3 [facility] mg/dL [facility]ORY Specimen Anatomical Collection Method Collection Time Receive d Time (Source) Location / / Volume Laterality Blood specimen 03/26/2019 3:17 AM 019 3:27 (specimen) EDT AM EDT Resulting Agency Comment Spec In Lab Bin Encinas MD CHEMISTRY ORDERABLES Performing Organization Address City/[facility]/ZIP [facility] [place] [address] XR Fluoro No Rad <1Hr - OR Use (03/25/2019 11:54 AM EDT) Specimen (Source) Anatomical Location Collection Method / Collectio n Time Received Time / Laterality Volume Narrative DH RAD - 03/25/2019 11:54 AM EDT This exam is auto-finalizing. No interpr etation was done. Bin Encinas MD IMG FLUORO ORDERABLES Performing Organization Address City/[facility]/ZIP Code Phon e Number DH RAD RAD [place], [place] (ABNORMAL) Differential, Automated (03/25/2019 2:28 AM EDT) [facility] gist Method Time Signature Neutrophils % 70.5 % [facility] Neutr Abs (ANC) 7.74 (H) 1.70 - [facility] 6.10 [facility] x10(3)/[facility] LABORATORY Lymphocytes % 14.4 % [facility] Lymphocytes Abs 1.6 0.9 - 3.2 [facility] x10(3)/[facility] LABORATORY Monocytes % 9.4 % [facility] Monocyte Abs 1.0 (H) 0.3 - 0.9 [facility] x10(3)/[facility] LABORATORY Eosinophils % 4.7 % [facility] Eosinophils Abs 0.5 (H) 0.0 - 0.4 [facility] x10(3)/[facility] LABORATORY Basophils % 0.5 % [facility] Basophils Abs 0.0 0.0 - 0.1 [facility] x10(3)/[facility] LABORATORY Immature Gran % 0.50 % [facility] Comment: Immature granulocytes(IG's)percentage an d absolute count will include metamyelocytes, myelocytes, and promyelo cytes. Blood smears from CBCs yielding IG's will be scanned manually for jac roberts. If this scan disagrees with the automated IG or if promyelocytes are not ed, a manual differential will be performed. Jennifer Gran Abs 0.05 (H) 0.00 - 0.04 x10(3)/[facility] LABORATORY Specimen Anatomical Collection Method Collection Time Receive d Time (Source) Location / / Volume Laterality Blood specimen 03/25/2019 2:28 AM 019 3:09 (specimen) EDT AM EDT Resulting Agency Comment Spec In Lab Tk Belle MD HEMATOLOGY ORDERABLES Performing Organization Address City/State/[place] [address] (ABNORMAL) Hemogram (03/25/2019 2:28 AM EDT) Analysis Performed At Patho logist Time Signature WBC 11.0 (H) 4.0 - 9.5 [facility] x10(3)/[facility] LABORATORY RBC 2.72 (L) 4.00 - [facility] 5.21 [facility] x10(6)/[facility] LABORATORY Hemoglobin 7.9 (L) 11.7 - [facility] 15.5 gm/dL [facility]ORY Hematocrit 23.4 (L) 35.7 - [facility] 45.8 % [facility]ATORY MCV 86.0 82.6 - [facility] 94.4 [facility] LABORATORY MCH 29.0 27.1 - [facility] 32.0 pg [facility]ORY MCHC 33.8 31.7 - [facility] 35.0 gm/dL [facility]ORY Platelets 120 (L) 145 - 357 [facility] x10(3)/[facility] LABORATORY RDWSD 54.6 (H) 37.0 - [facility] 46.0 [facility] LABORATORY RDWCV 17.5 (H) 11.5 - [facility] 14.1 % [facility] LABORATORY MPV 10.3 7.6 - 12.9 [facility] LABORATORY nRBC % Auto 0.0 % [facility] nRBC Abs Auto 0.000 0.000 - [facility] 0.000 [facility] x10(3)/[facility] LABORATORY Specimen Anatomical Collection Method Collection Time Receive d Time (Source) Location / / Volume Laterality Blood specimen 03/25/2019 2:28 AM 019 3:09 (specimen) EDT AM EDT Resulting Agency Comment Spec In Lab Tk Belle MD HEMATOLOGY ORDERABLES Performing Organization Address City/[facility]/ZIP Code Phon e Number [address] (ABNORMAL) Hepatic Function Panel (03/25/2019 2:28 AM EDT) P athologist Signature Total Protein 4.4 (L) 6.1 - 8.0 [facility] gm/dL [facility]ORY Albumin 2.5 (L) 3.2 - 5.2 [facility] gm/dL [facility]ORY AST 41 (H) 0 - 30 [facility] unit/L [facility]ORY ALT 24 0 - 30 [facility] unit/L [facility]ORY Alk Phos 38 35 - 105 [facility] unit/L [facility]ORY Total 0.4 0.2 - 1.3 [facility] Bilirubin mg/dL [facility] Bili, Direct 0.1 0.0 - 0.3 [facility] mg/dL [facility] Specimen Anatomical Collection Method Collection Time Receive d Time (Source) Location / / Volume Laterality Blood specimen 03/25/2019 2:28 AM 019 3:09 (specimen) EDT AM EDT Resulting Agency Comment Spec In Lab Bin Encinas MD CHEMISTRY ORDERABLES Performing Organization Address City/[facility]/ZIP Code Phon e Number [address] POCT Glucose (03/24/2019 11:59 AM EDT) P athologist Signature POC Glucose 95 65 - 199 [facility] mg/dL [facility] Comment: Supplemental ranges: <140 mg/dL before meals <180 mg/dL all other times of the day Specimen Anatomical Collection Method Collection Time Receive d Time (Source) Location / / Volume Laterality Blood specimen 03/24/2019 11:59 9 (specimen) AM EDT 11:59 AM EDT Sunshine Moncada MD POINT OF CARE TEST ORDERABLE S Performing Organization Address City/State/ZIP Code Phon e Number [address] (ABNORMAL) Hemogram (03/24/2019 11:55 AM EDT) Analysis Performed At Patho logist Time Signature WBC 11.0 (H) 4.0 - 9.5 [facility] x10(3)/[facility] LABORATORY RBC 2.71 (L) 4.00 - [facility] 5.21 [facility] x10(6)/[facility] LABORATORY Hemoglobin 7.7 (L) 11.7 - [facility] 15.5 gm/dL [facility] LABORATORY Hematocrit 22.3 (L) 35.7 - [facility] 45.8 % [facility] LABORATORY MCV 82.3 (L) 82.6 - [facility] 94.4 [facility] LABORATORY MCH 28.4 27.1 - [facility] 32.0 pg [facility] LABORATORY MCHC 34.5 31.7 - [facility] 35.0 gm/dL [facility] LABORATORY Platelets 117 (L) 145 - 357 [facility] x10(3)/[facility] LABORATORY RDWSD 49.0 (H) 37.0 - [facility] 46.0 [facility] LABORATORY RDWCV 16.7 (H) 11.5 - [facility] 14.1 % [facility] LABORATORY MPV 10.5 7.6 - 12.9 [facility] LABORATORY nRBC % Auto 0.0 % [facility] nRBC Abs Auto 0.000 0.000 - [facility] 0.000 [facility] x10(3)/[facility] LABORATORY Specimen Anatomical Collection Method Collection Time Receive d Time (Source) Location / / Volume Laterality Blood specimen 03/24/2019 11:55 9 (specimen) AM EDT 12:05 PM EDT Resulting Agency Comment Spec In Lab Sunshine Moncada MD HEMATOLOGY ORDERABLES Performing Organization Address City/State/[place] [address] POCT Glucose (03/24/2019 7:50 AM EDT) P athologist Signature POC Glucose 94 65 - 199 [facility] mg/dL [facility]ORY Comment: Supplemental ranges: <140 mg/dL before meals <180 mg/dL all other times of the day Specimen Anatomical Collection Method Collection Time Receive d Time (Source) Location / / Volume Laterality Blood specimen 03/24/2019 7:50 AM 019 7:50 (specimen) EDT AM EDT Sunshine Moncada MD POINT OF CARE TEST ORDERABLE S Performing Organization Address City/State/[place] [address] (ABNORMAL) Hemogram (03/24/2019 6:00 AM EDT) Analysis Performed At Patho logist Time Signature WBC 10.5 (H) 4.0 - 9.5 [facility] x10(3)/[facility] LABORATORY RBC 2.82 (L) 4.00 - [facility] 5.21 [facility] x10(6)/[facility] LABORATORY Hemoglobin 8.0 (L) 11.7 - [facility] 15.5 gm/dL [facility] LABORATORY Hematocrit 22.6 (L) 35.7 - [facility] 45.8 % [facility] LABORATORY MCV 80.1 (L) 82.6 - [facility] 94.4 [facility] LABORATORY MCH 28.4 27.1 - [facility] 32.0 pg [facility] LABORATORY MCHC 35.4 (H) 31.7 - [facility] 35.0 gm/dL [facility] LABORATORY Platelets 110 (L) 145 - 357 [facility] x10(3)/[facility] LABORATORY RDWSD 47.8 (H) 37.0 - [facility] 46.0 [facility] LABORATORY RDWCV 16.5 (H) 11.5 - [facility] 14.1 % [facility] LABORATORY MPV 10.1 7.6 - 12.9 [facility] LABORATORY nRBC % Auto 0.0 % [facility] nRBC Abs Auto 0.000 0.000 - [facility] 0.000 [facility] x10(3)/[facility] LABORATORY Specimen Anatomical Collection Method Collection Time Receive d Time (Source) Location / / Volume Laterality Blood specimen 03/24/2019 6:00 AM 019 6:03 (specimen) EDT AM EDT Resulting Agency Comment Spec In Lab Sunshine Moncada MD HEMATOLOGY ORDERABLES Performing Organization Address City/[facility]/ZIP Code Phon e Number [address] Transfuse RBC (03/24/2019 4:06 AM EDT) Sunshine Moncada MD NURSING TREATMENT ORDERABLES - BLOOD ADMIN Transfuse RBC (03/24/2019 4:06 AM EDT) Sunshine Moncada MD NURSING TREATMENT ORDERABLES - BLOOD ADMIN Prepare RBC (03/24/2019 1:35 AM EDT) P athologist Signature Dispensed? Yes [facility]ORAT[facility] Specimen Anatomical Collection Method Collection Time Receive d Time (Source) Location / / Volume Laterality Blood specimen 03/24/2019 1:35 AM 019 1:32 (specimen) EDT AM EDT Sunshine Moncada MD BLOOD BANK ORDERABLES Performing Organization Address City/[facility]/ZIP Code Phon e Number [address] (ABNORMAL) Hemogram (03/24/2019 12:10 AM EDT) Analysis Performed At Patho logist Time Signature WBC 10.5 (H) 4.0 - 9.5 [facility] x10(3)/[facility] LABORATORY RBC 2.48 (L) 4.00 - DEREJE MIKE 5.21 [facility] x10(6)/[facility] LABORATORY Hemoglobin 6.9 (L) 11.7 - [facility] 15.5 gm/dL [facility] LABORATORY Hematocrit 19.7 (L) 35.7 - [facility] MIKE 45.8 % [facility] LABORATORY MCV 79.4 (L) 82.6 - [facility] 94.4 fL [facility] LABORATORY MCH 27.8 27.1 - DEREJE MIKE 32.0 pg [facility] LABORATORY MCHC 35.0 31.7 - [facility] 35.0 gm/dL [facility] LABORATORY Platelets 118 (L) 145 - 357 [facility] x10(3)/[facility] LABORATORY RDWSD 51.8 (H) 37.0 - [facility] 46.0 [facility] LABORATORY RDWCV 17.8 (H) 11.5 - [facility] 14.1 % [facility] LABORATORY MPV 10.6 7.6 - 12.9 [facility] LABORATORY nRBC % Auto 0.0 % [facility] nRBC Abs Auto 0.000 0.000 - [facility] 0.000 [facility] x10(3)/[facility] LABORATORY Specimen Anatomical Collection Method Collection Time Receive d Time (Source) Location / / Volume Laterality Blood specimen 03/24/2019 12:10 9 (specimen) AM EDT 12:14 AM EDT Resulting Agency Comment Spec In Lab Sunshine Moncada MD HEMATOLOGY ORDERABLES Performing Organization Address City/[facility] [place] [address] (ABNORMAL) Prothrombin Time (03/24/2019 12:10 AM EDT) P athologist Signature PT 16.2 (H) 9.4 - 12.5 [facility] LABORATORY INR 1.4 [facility] Comment: An INR <2.0 indicates [...] Moncada MD HEMATOLOGY ORDERABLES Performing Organization Address City/[facility]/[place] [address] (ABNORMAL) Hepatic Function Panel (03/24/2019 12:10 AM EDT) athologist [facility] Total Protein 4.4 (L) 6.1 - 8.0 [facility] gm/dL [facility] LABORATORY Albumin 2.7 (L) 3.2 - 5.2 [facility] gm/dL [facility] LABORATORY AST 55 (H) 0 - 30 [facility] MIKE unit/L [facility] LABORATORY ALT 29 0 - 30 [facility] unit/L [facility] LABORATORY Alk Phos 34 (L) 35 - 105 [facility] MIKE unit/L [facility] LABORATORY Total 0.6 0.2 - 1.3 [facility] Bilirubin mg/dL [facility] LABORATORY Bili, Direct 0.2 0.0 - 0.3 [facility] mg/dL [facility] LABORATORY Specimen Anatomical Collection Method Collection Time Receive d Time (Source) Location / / Volume Laterality Blood specimen 03/24/2019 12:10 9 (specimen) AM EDT 12:14 AM EDT Resulting Agency Comment Spec In Lab Bin Encinas MD CHEMISTRY ORDERABLES Performing Organization Address City/State/[place] [address] (ABNORMAL) Basic Metabolic Panel (non-fasting) (03/24/2019 12:10 AM EDT) athologist [facility] Glucose Lvl 128 65 - 199 [facility] mg/dL [facility] LABORATORY Comment: Diabetes: >=200 mg/dL plus symp toms BUN 5 (L) 8 - 18 mg/dL [facility]ORY Creatinine 0.49 (L) 0.70 - 1.20 mg/dL [facility] LABORATORY Sodium 140 135 - 145 mmol/L [facility] Potassium 3.9 3.5 - 5.0 mmol/L [facility] Comment: Please note: ??Patients with WBC >100,00 0 may have falsely elevated Potassium levels. ??For accurate Potassium quantif ication in these patients send serum separator tube (gold top) for subsequent determinations. ??Contact the Clinical Chemistry Laboratory if there are any qu estions. Chloride 107 98 - 107 mmol/L [facility] CO2 26 22 - 31 mmol/L [facility] Anion Gap 7 5 - 15 mmol/L [facility] Calcium 7.8 (L) 8.5 - 10.5 mg/dL [facility] Estimated GFR 121 >=60 mL/min/1.73 m?? [facility] Comment: The eGFR was calculated using the CKD-EP I equation. As with all creatinine based estimates of kidney function, eGFR values calculated with the CKD-EPI equation are not accurate in patients wi th acute kidney failure, extremes of body mass or the acutely ill. http://[employer]/[facility]k eGFR 140 >=60 mL/min/1.73 m?? [facility] Comment: The eGFR was calculated using the CKD-EP I equation. As with all creatinine based estimates of kidney function, eGFR values calculated with the CKD-EPI equation are not accurate in patients wi th acute kidney failure, extremes of body mass or the acutely ill. http://[employer]/[facility]INAnkf Specimen Anatomical Collection Method Collection Time Receive d Time (Source) Location / / Volume Laterality Blood specimen 03/24/2019 12:10 9 (specimen) AM EDT 12:14 AM EDT Resulting Agency Comment Spec In Lab Sunshine Moncada MD CHEMISTRY ORDERABLES Performing Organization Address City/State/ZIP Code Phon e Number [address] POCT Glucose (03/23/2019 8:35 PM EDT) P athologist Signature POC Glucose 126 65 - 199 [facility] mg/dL [facility] LABORATORY Comment: Supplemental ranges: <140 mg/dL before meals <180 mg/dL all other times of the day Specimen Anatomical Collection Method Collection Time Receive d Time (Source) Location / / Volume Laterality Blood specimen 03/23/2019 8:35 PM 019 8:35 (specimen) EDT PM EDT Sunshine Moncada MD POINT OF CARE TEST ORDERABLE S Performing Organization Address City/State/[place] [address] (ABNORMAL) Hemogram (03/23/2019 5:30 PM EDT) Analysis Performed At Patho logist Time Signature WBC 9.7 (H) 4.0 - 9.5 [facility] x10(3[facility] LABORATORY RBC 2.72 (L) 4.00 - DEREJE PALMAC[place] 5.21 [facility] x10(6)/[facility] LABORATORY Hemoglobin 7.7 (L) 11.7 - [facility] 15.5 gm/dL [facility] LABORATORY Hematocrit 21.8 (L) 35.7 - [facility] 45.8 % [facility] LABORATORY MCV 80.1 (L) 82.6 - [facility] 94.4 [facility] LABORATORY MCH 28.3 27.1 - DEREJE MIKE 32.0 pg [facility] LABORATORY MCHC 35.3 (H) 31.7 - [facility] 35.0 gm/dL [facility] LABORATORY Platelets 114 (L) 145 - 357 [facility] x10(3)/[facility] LABORATORY RDWSD 49.9 (H) 37.0 - DEREJE MIKE 46.0 [facility] LABORATORY RDWCV 17.2 (H) 11.5 - [facility] MIKE 14.1 % [facility] LABORATORY MPV 10.5 7.6 - 12.9 [facility] LABORATORY nRBC % Auto 0.0 % [facility] nRBC Abs Auto 0.000 0.000 - [facility] 0.000 [facility] x10(3)/[facility] LABORATORY Specimen Anatomical Collection Method Collection Time Receive d Time (Source) Location / / Volume Laterality Blood specimen 03/23/2019 5:30 PM 019 5:45 (specimen) EDT PM EDT Resulting Agency Comment Spec In Lab Sunshine Moncada MD HEMATOLOGY ORDERABLES Performing Organization Address City/State/ZIP Code Phon e Number [address] POCT Glucose (03/23/2019 5:27 PM EDT) P athologist Signature POC Glucose 109 65 - 199 [facility] mg/dL [facility] LABORATORY Comment: Supplemental ranges: <140 mg/dL before meals <180 mg/dL all other times of the day Specimen Anatomical Collection Method Collection Time Receive d Time (Source) Location / / Volume Laterality Blood specimen 03/23/2019 5:27 PM 019 5:27 (specimen) EDT PM EDT Sunshine Moncada MD POINT OF CARE TEST ORDERABLE S Performing Organization Address City/[facility]/ZIP Code Phon e Number [address] XR Fluoro No Rad <1Hr - OR Use (03/23/2019 4:47 PM EDT) Specimen (Source) Anatomical Location Collection Method / Collectio n Time Received Time / Laterality Volume Narrative DH RAD - 03/23/2019 4:48 PM EDT This exam is auto-finalizing. No interpr etation was done. Susnhine Moncada MD IMG FLUORO ORDERABLES Performing Organization Address City/[facility]/ZIP Code Phon e Number DH RAD DH RAD [place], [place] POCT Glucose (03/23/2019 12:04 PM EDT) P athologist Signature POC Glucose 116 65 - 199 [facility] mg/dL [facility] LABORATORY Comment: Supplemental ranges: <140 mg/dL before meals <180 mg/dL all other times of the day Specimen Anatomical Collection Method Collection Time Receive d Time (Source) Location / / Volume Laterality Blood specimen 03/23/2019 12:04 9 (specimen) PM EDT 12:04 PM EDT Bin Encinas MD POINT OF CARE TEST ORDERABLE S Performing Organization Address City/[facility]/[place] [address] Scan, Peripheral Blood (03/23/2019 10:15 AM EDT) Patholo gist Method Time Signature Plat Estimate Decreased [facility] RBC Morphology Abnormal [facility] Hypochromia Slight [facility] [place] Cells 1-5 /HPF [facility] Stippled RBCs Present >1/HPF [facility] Specimen Anatomical Collection Method Collection Time Receive d Time (Source) Location / / Volume Laterality Blood specimen 03/23/2019 10:15 9 (specimen) AM EDT 10:44 AM EDT Resulting Agency Comment Spec In Lab Kings Dukes MD HEMATOLOGY ORDERABLES Performing Organization Address City/State/[place] [address] (ABNORMAL) Hemogram (03/23/2019 10:15 AM EDT) Analysis Performed At Patho logist Time Signature WBC 8.3 4.0 - 9.5 [facility] x10(3[facility] LABORATORY RBC 2.72 (L) 4.00 - DEREJE MIKE 5.21 [facility] x10(6)/[facility] LABORATORY Hemoglobin 7.6 (L) 11.7 - [facility] 15.5 gm/dL [facility] LABORATORY Hematocrit 22.0 (L) 35.7 - [facility] 45.8 % [facility] LABORATORY MCV 80.9 (L) 82.6 - [facility] 94.4 [facility] LABORATORY MCH 27.9 27.1 - DEREJE MIKE 32.0 pg [facility] LABORATORY MCHC 34.5 31.7 - DEREJE MIKE 35.0 gm/dL [facility] LABORATORY Platelets 69 (L) 145 - 357 [facility] x10(3)/[facility] LABORATORY RDWSD 47.5 (H) 37.0 - [facility] MIKE 46.0 [facility] LABORATORY RDWCV 16.4 (H) 11.5 - [facility] MIKE 14.1 % [facility] LABORATORY MPV 10.5 7.6 - 12.9 [facility] nRBC % Auto 0.0 % [facility] nRBC Abs Auto 0.000 0.000 - [facility] MIKE 0.000 [facility] x10(3)/[facility] LABORATORY Specimen Anatomical Collection Method Collection Time Receive d Time (Source) Location / / Volume Laterality Blood specimen 03/23/2019 10:15 9 (specimen) AM EDT 10:44 AM EDT Resulting Agency Comment Spec In Lab Sunshine Moncada MD HEMATOLOGY ORDERABLES Performing Organization Address City/State/ZIP Code Phon e Number DEREJE MIKE[address] (ABNORMAL) Calcium (03/23/2019 10:15 AM EDT) P athologist Signature Calcium 7.1 (L) 8.5 - 10.5 [facility] mg/dL [facility] LABORATORY Specimen Anatomical Collection Method Collection Time Receive d Time (Source) Location / / Volume Laterality Blood specimen 03/23/2019 10:15 9 (specimen) AM EDT 10:44 AM EDT Resulting Agency Comment Spec In Lab Bin Encinas MD CHEMISTRY ORDERABLES Performing Organization Address City/[facility]/ZIP Code Phon e Number [address] APTT (03/23/2019 10:15 AM EDT) P athologist Signature PTT 27 25 - 37 sec [facility] Comment: The PTT is NOT [...] Encinas MD HEMATOLOGY ORDERABLES Performing Organization Address City/[facility]/ZIP Code Phon e Number [address] EKG 12 Lead (03/23/2019 9:01 AM EDT) Component Value Ref Range Test Analysis Performed Pathologis t Method Time At Signature Ventricular rate 93 BPM MUSE SYSTEM Atrial Rate 93 BPM MUSE SYSTEM P-R Interval 132 ms MUSE SYSTEM QRS Duration 88 ms MUSE SYSTEM Q-T Interval 340 ms MUSE SYSTEM QTC Calculated 422 ms MUSE SYSTEM (Bezet) Calculated P [place] 51 degrees MUSE SYSTEM Calculated R [place] 52 degrees MUSE SYSTEM Calculated T [place] 33 degrees MUSE SYSTEM INTERPRETATION Normal sinus rhythm MUSE SYSTEM Nonspecific T wave abnormality Abnormal ECG No previous ECGs available Confirmed by MD Vanessa, Jonnathan ([id number]) on 03/23/2019 9:3 3:21 AM Specimen Anatomical Collection Method Collection Time Receive d Time (Source) Location / / Volume Laterality 03/23/2019 9:01 AM 9 9:33 EDT AM EDT Bin Encinas MD ECG ORDERABLES Performing Organization Address City/State/ZIP Code Phon e Number MUSE SYSTEM POCT Glucose (03/23/2019 8:08 AM EDT) athologist Signature POC Glucose 100 65 - 199 [facility] mg/dL [facility] LABORATORY Comment: Supplemental ranges: <140 mg/dL before meals <180 mg/dL all other times of the day Specimen Anatomical Collection Method Collection Time Receive d Time (Source) Location / / Volume Laterality Blood specimen 03/23/2019 8:08 AM 019 8:08 (specimen) EDT AM EDT Bin Encinas MD POINT OF CARE TEST ORDERABLE S Performing Organization Address City/[facility]/[place] [address] Transfuse RBC (03/23/2019 7:22 [...] For questions regarding this report, please contact [facility] number below. Bin Encinas MD IMG DX [...] at the neck has been reduced. The manager radiation ior subtalar joint is congruent. There is [...] COMPARISON: Radiograph of the right ankle from 2018 FINDINGS: There is a comminuted fracture [...] at the neck has been reduced. The manager radiation ior subtalar joint is congruent. There is [...] For questions regarding this report, please contact [facility] number below. Bin Encinas MD IMG CT [...] 4:15 AM EDT) athologist Signature Dispensed? Yes [facility] Specimen Anatomical Collection Method Collection Time Receive d Time (Source) Location / / Volume Laterality Blood specimen 03/23/2019 4:15 AM 019 4:15 (specimen) EDT AM EDT Bin Encinas MD BLOOD BANK ORDERABLES Performing Organization Address City/State/[place] [address] Differential, Automated (03/23/2019 3:52 AM EDT) athologist Signature Neutrophils % 77.5 % [facility] Neutr Abs (ANC) 5.31 1.70 - [facility] 6.10 [facility] x10(3)/[facility] LABORATORY Lymphocytes % 12.6 % [facility] Lymphocytes Abs 0.9 0.9 - 3.2 [facility] x10(3)/[facility] LABORATORY Monocytes % 9.5 % [facility] Monocyte Abs 0.6 0.3 - 0.9 [facility] x10(3)/[facility] LABORATORY Eosinophils % 0.0 % [facility] Eosinophils Abs 0.0 0.0 - 0.4 [facility] x10(3)/[facility] LABORATORY Basophils % 0.1 % [facility] Basophils Abs 0.0 0.0 - 0.1 [facility] x10(3)/[facility] LABORATORY Immature Gran % 0.30 % [facility] Comment: Immature granulocytes(IG's)percentage an d absolute count will include metamyelocytes, myelocytes, and promyelo cytes. Blood smears from CBCs yielding IG's will be scanned manually for concor dance. If this scan disagrees with the automated IG or if promyelocytes are not ed, a manual differential will be performed. Jennifer Gran Abs 0.02 0.00 - 0.04 x10(3)/[facility] LABORATORY Specimen Anatomical Collection Method Collection Time Receive d Time (Source) Location / / Volume Laterality Blood specimen 03/23/2019 3:52 AM 019 3:52 (specimen) EDT AM EDT Resulting Agency Comment Spec In Lab Frances Crawford MD HEMATOLOGY ORDERABLES Performing Organization Address City/State/[place] [address] (ABNORMAL) Hemogram (03/23/2019 3:52 AM EDT) Analysis Performed At Patho logist Time Signature WBC 6.8 4.0 - 9.5 [facility] x10(3)/[facility] LABORATORY RBC 2.31 (L) 4.00 - [facility] 5.21 [facility] x10(6)/[facility] LABORATORY Hemoglobin 6.7 (L) 11.7 - DEREJE OLMEDOMIKE 15.5 gm/dL [facility] LABORATORY Hematocrit 18.8 (L) 35.7 - DEREJE OLMEDOMIKE 45.8 % [facility] LABORATORY MCV 81.4 (L) 82.6 - DEREJE OLMEDOMIKE 94.4 [facility] LABORATORY MCH 29.0 27.1 - DEREJE OLMEDOMIKE 32.0 pg [facility] LABORATORY MCHC 35.6 (H) 31.7 - DEREJE OLMEDOMIKE 35.0 gm/dL [facility] LABORATORY Platelets 105 (L) 145 - 357 [facility] x10(3)/[facility] LABORATORY RDWSD 45.7 37.0 - DEREJE OLMEDOMIKE 46.0 [facility] LABORATORY RDWCV 15.4 (H) 11.5 - [facility] 14.1 % [facility] LABORATORY MPV 10.4 7.6 - 12.9 DEREJE MIKE [facility] LABORATORY nRBC % Auto 0.0 % [facility] nRBC Abs Auto 0.000 0.000 - DEREJE OLMEDOMIKE 0.000 [facility] x10(3)/[facility] LABORATORY Specimen Anatomical Collection Method Collection Time Receive d Time (Source) Location / / Volume Laterality Blood specimen 03/23/2019 3:52 AM 3:52 (specimen) EDT AM EDT Resulting Agency Comment Spec In Lab Frances Crawford MD HEMATOLOGY ORDERABLES Performing Organization Address City/[facility]/ZIP Code Phon e Number [address] Lactate, whole blood, send to lab ([facility]) (03/23/2019 3:52 AM EDT) P athologist Signature Lactate WB 1.4 0.5 - 2.2 [facility] mmol/L [facility] LABORATORY Specimen Anatomical Collection Method Collection Time Receive d Time (Source) Location / / Volume Laterality Blood specimen 03/23/2019 3:52 AM 019 3:52 (specimen) EDT AM EDT Resulting Agency Comment Spec In Lab Bin Encinas MD CHEMISTRY ORDERABLES Performing Organization Address City/State/[place] [address] Troponin (03/23/2019 3:52 AM EDT) athologist Signature Troponin-T <0.01 0.00 - 0.00 [facility] ng/mL [facility] LABORATORY Comment: The 99th percentile for Troponin T is le ss than 0.01 ng/mL, any detectable cTnT concentration using this assay should be considered elevated. According to the third universal definit ion of myocardial infarction the following criteria with a clinical prese ntation consistent with acute myocardial ischemia meets the diagnosis for a myocardial infarction ([place]). Detection of a rise and/or fall of [...] additional sample may be indicated. Reference: Third [place] Definition of Myocardial Infarction. Journal of the [place] [employer] 2012;60:1581-98 Specimen Anatomical Collection Method Collection Time Receive d Time (Source) Location / / Volume Laterality Blood specimen 03/23/2019 3:52 AM 019 3:52 (specimen) EDT AM EDT Resulting Agency Comment Spec In Lab Bin Encinas MD CHEMISTRY ORDERABLES Performing Organization Address City/State/ZIP Code Phon e Number [place] [id number]OS[address] Drive (ABNORMAL) Basic Metabolic Panel (non-fasting) (03/23/2019 3:52 AM EDT) athologist Signature Glucose Lvl 122 65 - 199 [facility] mg/dL [facility] LABORATORY Comment: Diabetes: >=200 mg/dL plus symp toms BUN 10 8 - 18 mg/dL [facility] Creatinine 0.54 (L) 0.70 - 1.20 mg/dL [facility] LABORATORY Sodium 142 135 - 145 mmol/L [facility] Potassium 4.5 3.5 - 5.0 mmol/L [facility] Comment: Please note: ??Patients with WBC >100,00 0 may have falsely elevated Potassium levels. ??For accurate Potassium quantif ication in these patients send serum separator tube (gold top) for subsequent determinations. ??Contact the Clinical Chemistry Laboratory if there are any qu estions. Chloride 111 (H) 98 - 107 mmol/L [facility] CO2 22 22 - 31 mmol/L [facility] Anion Gap 9 5 - 15 mmol/L [facility] Calcium 6.8 (Critical) 8.5 - 10.5 mg/dL [facility]ORY Comment: Called by: MARIA LUISA, Read back by: German OKEEFE, Date/Time:03/23/19 05:05. Estimated GFR 117 >=60 mL/min/1.73 m?? [facility] Comment: The eGFR was calculated using the CKD-EP I equation. As with all creatinine based estimates of kidney function, eGFR values calculated with the CKD-EPI equation are not accurate in patients wi th acute kidney failure, extremes of body mass or the acutely ill. http://[employer]/[facility]INAnkf eGFR 136 >=60 mL/min/1.73 m?? [facility] Comment: The eGFR was calculated using the CKD-EP I equation. As with all creatinine based estimates of kidney function, eGFR values calculated with the CKD-EPI equation are not accurate in patients wi th acute kidney failure, extremes of body mass or the acutely ill. http://[employer]/[facility]Ankf Specimen Anatomical Collection Method Collection Time Receive d Time (Source) Location / / Volume Laterality Blood specimen 03/23/2019 3:52 AM 019 3:52 (specimen) EDT AM EDT Resulting Agency Comment Spec In Lab Bin Encinas MD CHEMISTRY ORDERABLES Performing Organization Address City/State/[place] [address] XR Fluoro No Rad [...] Phon e Number DH RAD DH RAD [place], [place] (ABNORMAL) Fibrinogen (03/23/2019 1:30 AM EDT) P athologist Signature Fibrinogen 152 (L) 200 - 393 [facility] mg[facility]dL [facility] Comment: A fibrinogen level >100 mg/dL [...] Organization Address City/State/[place] [address] Prepare RBC (03/23/2019 1:30 AM EDT) P athologist Signature Dispensed? Yes [facility] Specimen Anatomical Collection Method Collection Time Receive d Time (Source) Location / / Volume Laterality Blood specimen 03/23/2019 1:30 AM 019 1:27 (specimen) EDT AM EDT Bin Encinas MD BLOOD BANK ORDERABLES Performing Organization Address City/State/[place] [address] Troponin (03/22/2019 11:00 PM EDT) P athologist Signature Troponin-T <0.01 0.00 - 0.00 [facility] ng/mL [facility] Comment: The 99th percentile for Troponin T is le ss than 0.01 ng/mL, any detectable cTnT concentration using this assay should be considered elevated. According to the third universal definit ion of myocardial infarction the following criteria with a clinical prese ntation consistent with acute myocardial ischemia meets the diagnosis for a myocardial infarction ([place]). Detection of a rise and/or fall of [...] additional sample may be indicated. Reference: Third [place] Definition of Myocardial Infarction. Journal of the [place] [employer] 2012;60:1581-98 Specimen Anatomical Collection Method Collection Time Receive d Time (Source) Location / / Volume Laterality Blood specimen 03/22/2019 11:00 9 (specimen) PM EDT 11:12 PM EDT Resulting Agency Comment Spec In Lab Bin Encinas MD CHEMISTRY ORDERABLES Performing Organization Address City/State/ZIP Code Phon e Number [place] [id number] (ABNORMAL) Hemogram (03/22/2019 11:00 PM EDT) P athologist Signature WBC 7.4 4.0 - 9.5 [facility] x10(3)/[facility] LABORATORY RBC 2.80 (L) 4.00 - [facility] 5.21 [facility] x10(6)/[facility] LABORATORY Hemoglobin 8.1 (L) 11.7 - [facility] 15.5 gm/dL [facility]ORY Comment: This result has been called to RAMIREZ IRVING by KOTA BARKER on 03 22 2019 at 2324, and has been read back. Hematocrit 23.8 (L) 35.7 - 45.8 % [facility] MCV 85.0 82.6 - 94.4 fL [facility] MCH 28.9 27.1 - 32.0 pg [facility] MCHC 34.0 31.7 - 35.0 gm/dL [facility] LABORATORY Platelets 120 (L) 145 - 357 x10(3)/[facility] LABORATORY Comment: Patient Transfused. RDWSD 47.2 (H) 37.0 - 46.0 fL [facility] RDWCV 15.3 (H) 11.5 - 14.1 % [facility] LABORATORY MPV 10.3 7.6 - 12.9 [facility] LABORATORY nRBC % Auto 0.0 % [facility] LABORATORY nRBC Abs Auto 0.000 0.000 - 0.000 x10(3)/[facility] LABORATORY Specimen Anatomical Collection Method Collection Time Receive d Time (Source) Location / / Volume Laterality Blood specimen 03/22/2019 11:00 9 (specimen) PM EDT 11:12 PM EDT Resulting Agency Comment Spec In Lab Sunshine Moncada MD HEMATOLOGY ORDERABLES Performing Organization Address City/[facility]/[place]IP [place] [address] APTT (03/22/2019 11:00 PM EDT) P athologist Signature PTT 28 25 - 37 sec [facility] Comment: The PTT is NOT [...] Address City/State/ZIP [place] [address] (ABNORMAL) Prothrombin Time (03/22/2019 11:00 PM EDT) P athologist Signature PT 14.8 (H) 9.4 - 12.5 [facility] LABORATORY INR 1.3 [facility] Comment: An INR <2.0 indicates [...] Organization Address City/State/ZIP Code Phon e Number [address] POCT Glucose (03/22/2019 10:59 PM EDT) athologist Signature POC Glucose 139 65 - 199 [facility] mg/dL [facility]ORY Comment: Supplemental ranges: <140 mg/dL before meals <180 mg/dL all other times of the day Specimen Anatomical Collection Method Collection Time Receive d Time (Source) Location / / Volume Laterality Blood specimen 03/22/2019 10:59 9 (specimen) PM EDT 10:59 PM EDT Bin Encinas MD POINT OF CARE TEST ORDERABLE S Performing Organization Address City/State/[place] [address] Prepare thawed plasma (03/22/2019 10:35 PM EDT) athologist Signature Dispensed? Yes [facility] Specimen Anatomical Collection Method Collection Time Receive d Time (Source) Location / / Volume Laterality Blood specimen 03/22/2019 10:35 9 (specimen) PM EDT 10:36 PM EDT Bin Encinas MD BLOOD BANK ORDERABLES Performing Organization Address City/State/ZIP Code Phon e Number [address] Transfuse 1 unit platelets, apheresis [...] TREATMENT ORDERABLES - BLOOD ADMIN urine, qualitative ([place]/[facility]/P) (03/22/2019 9:18 PM EDT) Analysis Performed At Patho logist Time Signature Spec [place] 1.020 1.002 - [facility] UA 1.030 [facility] LABORATORY HCG Qual Negative [facility] Specimen Anatomical Collection Method Collection Time Receive d Time (Source) Location / / Volume Laterality Urine specimen 03/22/2019 9:18 PM 019 (specimen) EDT 10:01 PM EDT Resulting Agency Comment Spec In Lab Bin Encinas MD URINE ORDERABLES Performing Organization Address City/[facility]/[place] [address] XR Knee 1-2 Views [...] DX ORDERABLES APTT (03/22/2019 9:00 PM EDT) P athologist Signature PTT 30 25 - 37 sec [facility] Comment: The PTT is NOT [...] Encinas MD HEMATOLOGY ORDERABLES Performing Organization Address City/[facility]/[place] [address] (ABNORMAL) Prothrombin Time (03/22/2019 9:00 PM EDT) athologist Signature PT 16.6 (H) 9.4 - 12.5 [facility] LABORATORY INR 1.4 [facility] Comment: An INR <2.0 indicates [...] Encinas MD HEMATOLOGY ORDERABLES Performing Organization Address City/[facility]/[place] [address] Film Library- Storage Only DX Ankle (03/22/2019 8:19 PM EDT) Specimen (Source) Anatomical Location Collection Method / Collectio n Time Received Time / Laterality Volume Narrative RAD - 03/22/2019 8:19 PM EDT This exam is auto-finalizing. It's purpo se is for storage only. Bin Encinas MD IMG FILM LIBRARY ORDERABLES Performing Organization Address City/[facility]/ZIP Code Phon e Number RAD [place], [place] Request For 2nd Read CT Spine [...] please contact th e number below. ? Narrative 03/23/2019 3:26 [...] Omnipaque 350 was used. Study performed at [facility] at 1240 hours, March 22, 2019. COMPARISON: [...] Omnipaque 350 was used. Study performed at [facility] at 1240 hours, March 22, 2019. COMPARISON: [...] For questions regarding this report, please contact [facility] number below. Bin Encinas MD IMG OUTSIDE [...] For questions regarding this report, please contact [facility] number below. ? Narrative 03/22/2019 9:17 PM [...] is better visualized on ankle radiographs from [facility] today. No additional fracture is visualized. [...] residents interpretation and agree with the findings, eYsenia Dubois at 03/22/2019 9:17 PM Thank you for letting us participate in the care of this patient. For questions regarding this report, please contact [facility] number below. Bin Encinas MD IMG DX [...] ABORH Recheck Status (03/22/2019 7:30 PM EDT) [facility] Method Time Signature ABORH Recheck Order Placed DEREJE AUGUSTINE K Order [facility] LABORATORY ABORH Type Complete [facility] LABORATORY Specimen Anatomical Collection Method Collection Time Receive d Time (Source) Location / / Volume Laterality Blood specimen 03/22/2019 7:30 PM 019 8:03 (specimen) EDT PM EDT Resulting Agency Comment Spec In Lab Yesica Burroughs MD BLOOD BANK ORDERABLES Performing Organization Address City/[facility]/[place] [address] Antibody screen (03/22/2019 7:30 PM EDT) [facility] Method [place] Signature Ab Screen Negative [facility] LABORATORY Expires at 03/25/2019 [facility] [id number] on: [facility]ORATORY Comment: Corrected from 03/22/19 0:00:00 EDT [Unk nown] on 03/23/19 13:52:12 EDT by Lizett Cordoba. Specimen Anatomical Collection Method Collection Time Receive d Time (Source) Location / / Volume Laterality Blood specimen 03/22/2019 7:30 PM 019 8:03 (specimen) EDT PM EDT Resulting Agency Comment Spec In Lab Yesica Burroughs MD BLOOD BANK ORDERABLES Performing Organization Address City/[facility]/ZIP Code Phon e Number [place] [id number] ABO/Rh Typing (03/22/2019 7:30 PM EDT) P athologist Signature ABORh Type A Pos [facility] Specimen Anatomical Collection Method Collection Time Receive d Time (Source) Location / / Volume Laterality Blood specimen 03/22/2019 7:30 PM 019 8:03 (specimen) EDT PM EDT Resulting Agency Comment Spec In Lab Yesica Burroughs MD BLOOD BANK ORDERABLES Performing Organization Address City/[facility]/[place] [address] Prepare RBC (03/22/2019 7:30 PM EDT) P athologist Signature Dispensed? Yes [facility] Specimen Anatomical Collection Method Collection Time Receive d Time (Source) Location / / Volume Laterality Blood specimen 03/22/2019 7:30 PM 019 7:28 (specimen) EDT PM EDT Bin Encinas MD BLOOD BANK ORDERABLES Performing Organization Address City/[facility]/[place] [address] Prepare Platelets, Apheresis (03/22/2019 7:25 PM EDT) P athologist Signature Dispensed? Yes [facility] Specimen Anatomical Collection Method Collection Time Receive d Time (Source) Location / / Volume Laterality Blood specimen 03/22/2019 7:25 PM 019 7:21 (specimen) EDT PM EDT Bin Encinas MD BLOOD BANK ORDERABLES Performing Organization Address City/State/[place] [address] Prepare thawed plasma (03/22/2019 7:15 PM EDT) P athologist Signature Dispensed? No [facility] Specimen Anatomical Collection Method Collection Time Receive d Time (Source) Location / / Volume Laterality Blood specimen 03/22/2019 7:15 PM 019 7:20 (specimen) EDT PM EDT Bin Encinas MD BLOOD BANK ORDERABLES Performing Organization Address City/State/[place] [address] Prepare RBC (03/22/2019 5:59 PM EDT) P athologist Signature Dispensed? Yes [facility] Specimen Anatomical Collection Method Collection Time Receive d Time (Source) Location / / Volume Laterality Blood specimen No Charge / 03/22/2019 5:59 PM 5:59 (specimen) Unknown EDT PM EDT Resulting Agency Comment Spec In Lab Bin Encinas MD BLOOD BANK ORDERABLES Performing Organization Address City/State/ZIP Code Phon e Number [address] POCT Glucose (03/22/2019 5:51 PM EDT) athologist Signature POC Glucose 151 65 - 199 [place] mg/dL [facility] LABORATORY Comment: Supplemental ranges: <140 mg/dL before meals <180 mg/dL all other times of the day Specimen Anatomical Collection Method Collection Time Receive d Time (Source) Location / / Volume Laterality Blood specimen 03/22/2019 5:51 PM 019 5:51 (specimen) EDT PM EDT Bin Encinas MD POINT OF CARE TEST ORDERABLE S Performing Organization Address City/[facility]/[place] [address] Troponin (03/22/2019 5:49 PM EDT) athologist Signature Troponin-T <0.01 0.00 - 0.00 [facility] ng/mL [facility] Comment: The 99th percentile for Troponin T is le ss than 0.01 ng/mL, any detectable cTnT concentration using this assay should be considered elevated. According to the third universal definit ion of myocardial infarction the following criteria with a clinical prese ntation consistent with acute myocardial ischemia meets the diagnosis for a myocardial infarction ([place]). Detection of a rise and/or fall of [...] additional sample may be indicated. Reference: Third [place] Definition of Myocardial Infarction. Journal of the [place] [employer] 2012;60:1581-98 Specimen Anatomical Collection Method Collection Time Receive d Time (Source) Location / / Volume Laterality Blood specimen Venous Draw / 03/22/2019 5:49 PM 2018 6:30 (specimen) Unknown EDT PM EDT Resulting Agency Comment Spec In Lab Clarita Sher MD CHEMISTRY ORDERABLES Performing Organization Address City/State/[place] [address] (ABNORMAL) Differential, Automated (03/22/2019 5:49 PM EDT) [facility] gist Method Time Signature Neutrophils % 81.3 % [facility] Neutr Abs (ANC) 7.31 (H) 1.70 - [facility] 6.10 [facility] x10(3)/[facility] LABORATORY Lymphocytes % 6.1 % [facility] Lymphocytes Abs 0.6 (L) 0.9 - 3.2 [facility] x10(3)/[facility] LABORATORY Monocytes % 12.1 % [facility] Monocyte Abs 1.1 (H) 0.3 - 0.9 [facility] x10(3)/[facility] LABORATORY Eosinophils % 0.1 % [facility] Eosinophils Abs 0.0 0.0 - 0.4 [facility] x10(3)/[facility] LABORATORY Basophils % 0.1 % [facility] Basophils Abs 0.0 0.0 - 0.1 [facility] x10(3)/[facility] LABORATORY Immature Gran % 0.30 % [facility] Comment: Immature granulocytes(IG's)percentage an d absolute count will include metamyelocytes, myelocytes, and promyelo cytes. Blood smears from CBCs yielding IG's will be scanned manually for concor dance. If this scan disagrees with the automated IG or if promyelocytes are not ed, a manual differential will be performed. Jennifer Gran Abs 0.03 0.00 - 0.04 x10(3)/[facility] LABORATORY Specimen Anatomical Collection Method Collection Time Receive d Time (Source) Location / / Volume Laterality Blood specimen 03/22/2019 5:49 PM 019 6:11 (specimen) EDT PM EDT Resulting Agency Comment Spec In Lab Siobhan Fuller MD HEMATOLOGY ORDERABLES Performing Organization Address City/State/[place] [address] (ABNORMAL) Hemogram (03/22/2019 5:49 PM EDT) Analysis Performed At Patho logist Time Signature WBC 9.0 4.0 - 9.5 [facility] x[facility](3[facility] LABORATORY RBC 4.35 4.00 - [place] 5.21 [facility] x10(6)/[facility] LABORATORY Hemoglobin 12.2 11.7 - [facility] 15.5 gm/dL [facility] LABORATORY Hematocrit 35.8 35.7 - [facility] 45.8 % [facility] LABORATORY MCV 82.3 (L) 82.6 - [facility] 94.4 [facility] LABORATORY MCH 28.0 27.1 - [place] 32.0 pg [facility] LABORATORY MCHC 34.1 31.7 - [facility] 35.0 gm/dL [facility] LABORATORY Platelets 55 (L) 145 - 357 [facility] x10(3)/[facility] LABORATORY RDWSD 47.7 (H) 37.0 - [facility] 46.0 [facility] LABORATORY RDWCV 15.9 (H) 11.5 - [facility] 14.1 % [facility] LABORATORY MPV 12.0 7.6 - 12.9 [facility] LABORATORY nRBC % Auto 0.0 % [facility] nRBC Abs Auto 0.000 0.000 - [facility] 0.000 [facility] x10(3)/[facility] LABORATORY Specimen Anatomical Collection Method Collection Time Receive d Time (Source) Location / / Volume Laterality Blood specimen 03/22/2019 5:49 PM 019 6:11 (specimen) EDT PM EDT Resulting Agency Comment Spec In Lab Siobhan Fuller MD HEMATOLOGY ORDERABLES Performing Organization Address City/State/[place] [address] (ABNORMAL) D-Dimer, Quantitative (03/22/2019 5:49 PM EDT) Patholo gist Method Time Signature D-Dimer, Quant 6,738 (H) 0 - 500 [place] FEU ng/ml [facility] LABORATORY Comment: The D-Dimer assay is used [...] Organization Address City/State/[place] [address] Haptoglobin (03/22/2019 5:49 PM EDT) P athologist Signature Haptoglobin Not Perf 30 - 200 [facility] mg/dL [facility] LABORATORY Comment: Unable to quantitate due to sample hemol ysis. ??Sample redraw suggested. Called by: brant, Read back by: Caitlin suacedo, Date/Time:03/22/19 19:09. Haptoglobin concentrations in newborns i [...] Encinas MD CHEMISTRY ORDERABLES Performing Organization Address City/[facility]/[place] [address] (ABNORMAL) Fibrinogen (03/22/2019 5:49 PM EDT) P athologist Signature Fibrinogen 176 (L) 200 - 393 [facility] mg/dL [facility] LABORATORY Comment: A fibrinogen level >100 mg/dL is adequat e for hemostasis in most patients without underlying bleeding disorders. Specimen Anatomical Collection Method Collection Time Receive d Time (Source) Location / / Volume Laterality Blood specimen 03/22/2019 5:49 PM 019 6:11 (specimen) EDT PM EDT Resulting Agency Comment Spec In Lab Bin Encinas MD HEMATOLOGY ORDERABLES Performing Organization Address City/[facility] Phon e Number [address] Lipase (03/22/2019 5:49 PM EDT) athologist Signature Lipase 39 0 - 60 [facility] unit/L [facility] LABORATORY Specimen Anatomical Collection Method Collection Time Receive d Time (Source) Location / / Volume Laterality Blood specimen 03/22/2019 5:49 PM 019 6:11 (specimen) EDT PM EDT Resulting Agency Comment Spec In Lab Bin Encinas MD CHEMISTRY ORDERABLES Performing Organization Address City/[facility] Phon e Number [address] (ABNORMAL) Hepatic Function Panel (03/22/2019 5:49 PM EDT) Analysis Performed At Patho logist Time Signature Total Protein 4.5 (L) 6.1 - 8.0 [facility] gm/dL [facility] LABORATORY Albumin 2.7 (L) 3.2 - 5.2 [facility] gm/dL [facility] LABORATORY AST Not Perf 0 - 30 [facility] Comment: Unable to quantitate due to sample hemol ysis. ??Sample redraw suggested. Called by: brant , Read back by: Caitlin Tapia rd, Date/Time:03/22/19 19:08. ALT 38 (H) 0 - 30 unit/L [facility] Alk Phos 36 35 - 105 unit/L [facility] Total Bilirubin 0.9 0.2 - 1.3 mg/dL [facility] LABORATORY Bili, Direct 0.2 0.0 - 0.3 mg/dL [facility] LABORATORY Specimen Anatomical Collection Method Collection Time Receive d Time (Source) Location / / Volume Laterality Blood specimen 03/22/2019 5:49 PM 019 6:11 (specimen) EDT PM EDT Resulting Agency Comment Spec In Lab Bin Encinas MD CHEMISTRY ORDERABLES Performing Organization Address City/State/[place] [address] (ABNORMAL) Basic Metabolic Panel (non-fasting) (03/22/2019 5:49 PM EDT) P athologist Signature Glucose Lvl 155 65 - 199 [facility] mg/dL [facility] LABORATORY Comment: Diabetes: >=200 mg/dL plus symp toms BUN 11 8 - 18 mg/dL [facility]ORY Creatinine 0.56 (L) 0.70 - 1.20 mg/dL [facility] LABORATORY Sodium 141 135 - 145 mmol/L [facility] Potassium 4.1 3.5 - 5.0 mmol/L [facility] Comment: Please note: ??Patients with WBC >100,00 0 may have falsely elevated Potassium levels. ??For accurate Potassium quantif ication in these patients send serum separator tube (gold top) for subsequent determinations. ??Contact the Clinical Chemistry Laboratory if there are any qu estions. Chloride 111 (H) 98 - 107 mmol/L [facility] CO2 19 (L) 22 - 31 mmol/L [facility] Anion Gap 11 5 - 15 mmol/L [facility] Calcium 8.4 (L) 8.5 - 10.5 mg/dL [facility] Estimated GFR 116 >=60 mL/min/1.73 m?? [facility] Comment: The eGFR was calculated using the CKD-EP I equation. As with all creatinine based estimates of kidney function, eGFR values calculated with the CKD-EPI equation are not accurate in patients wi th acute kidney failure, extremes of body mass or the acutely ill. http://[employer]/[facility] TALIHINAnkf eGFR 134 >=60 mL/min/1.73 m?? [facility] Comment: The eGFR was calculated using the CKD-EP I equation. As with all creatinine based estimates of kidney function, eGFR values calculated with the CKD-EPI equation are not accurate in patients wi th acute kidney failure, extremes of body mass or the acutely ill. http://[employer]/[facility] TALIHINAnkf Specimen Anatomical Collection Method Collection Time Receive d Time (Source) Location / / Volume Laterality Blood specimen 03/22/2019 5:49 PM 019 6:11 (specimen) EDT PM EDT Resulting Agency Comment Spec In Lab Bin Encinas MD CHEMISTRY ORDERABLES Performing Organization Address [facility] Phon e Number [address] APTT (03/22/2019 5:49 PM EDT) P athologist Signature PTT 26 25 - 37 sec [facility] Comment: The PTT is NOT [...] Encinas MD HEMATOLOGY ORDERABLES Performing Organization Address City/[facility] [place] [address] (ABNORMAL) Prothrombin Time (03/22/2019 5:49 PM EDT) P athologist Signature PT 13.1 (H) 9.4 - 12.5 [facility] LABORATORY INR 1.1 [facility] Comment: An INR <2.0 indicates [...] Organization Address City/State/[place] [address] documented in this encounter Visit Diagnoses Not on filedocumented in this encounter Admitting Diagnoses Diagnosis Motor [...] Oral, 2 TIMES DAILY PRN, Starting on 03/22/19 at 1700, Until Fri03/31/19 at 1634, [...] 0556, Until Fri03/31/19 at 1634, Constipation, Routine chlorhexidine (PERIDEX) 0.12 % oral solution Given 9:10 AM EDT 15 mLs 15 mL 15 mL, Oral, 2 TIMES DAILY, First dose on Fri03/22/19 at 2100, Until Discontinued, Swab oral cavity. Ventilator-associated pneumonia prophylaxis, Routine Given 03/30/2019 8:26 PM EDT 15 mLs Given 03/28/2019 9:27 AM EDT 15 mLs heparin (Porcine) subcutaneous injection Given 019 9:10 AM EDT 5,000 Units 5,000 Units 5,000 Units, Subcutaneous, EVERY 8 HOURS SCHEDULED, First dose (after last modification) on Fri03/26/19 at 1400, Until Discontinued, Routine Given 03/31/2019 1:27 AM EDT 5,000 Units Given 03/30/2019 5:06 PM EDT 5,000 Units ondansetron (ZOFRAN) injection 4 mg Given 03/30/2019 [...] concomitantly for constipation., Routine prochlorperazine (COMPAZINE) injection 1 0 mg Given 03/28/2019 1:20 AM EDT 10 mg 10 mg, Intravenous, EVERY 6 HOURS PRN, Starting on Fri03/26/19 at 2044, Until Fri03/31/19 at 1634, Nausea, Routine Given 03/27/2019 12:49 PM EDT 10 mg Given 03/26/2019 9:14 PM EDT 10 mg senna-docusate (PERICOLACE) 8.6-50 mg per Given 2018 [...] 6:59 PM EDT 10 mL/hr 10 mL/hr documented in this encounter Active and Recently Administered Medications Times are shown in EDT. Scheduled Medication Order 03/29/2019 03/30/2019 03/31/2019 acetaminophen (Tylenol) (32.02 mg/mL) oral liquid 1,00 0 mg(Linked Group 1) 0124 (See Alternative - Provider: Ramirez Ortiz RN)0906 (See Alternative - Provider: Kristin Hutson RN)1706 (See Alternative - Provider: Kristni Hutson RN) 0110 (See Alternative - Provider: Ramirez Ortiz RN)0904 (See Alternative - Provider: Kristin Hutson RN)1706 (See Alternative - Provider: Kristin Hutson RN) 0127 (See Alternative - Provider: Taty Durand, TAZ)0910 (See Alternative - Provider: Aleksandra Miller, TAZ) 1,000 mg, Oral, EVERY 8 HOURS SCHEDULED, [...] Hutson RN) 0110 (Given - Provider: Ramirez Ortiz R N)0904 (Given - Provider: Kristin Hutson RN)1706 (Given - Provider: Kristin Hutson RN) 0127 (Given - Provider: Taty Durand RN)0910 (Given - Provider: Aleksandra Miller RN) 1,000 [...] Provider: Kristin Hutson RN - Reason: Patient/family refused)202 (Given - Provider: Taty Durand RN) 0910 (Given - Provider: Aleksandra sweeney RN) 15 mL, Oral, 2 TIMES DAILY, First dose o n Fri03/22/19 at 2100, Until Discontinued, Swab oral cavity. Ventilator-associated pneumonia prophylaxis, Routine escitalopram (LEXAPRO) tablet 10 mg (CANCELED) 0906 (G iven - Provider: Kristin Hutson RN) 10 mg, Oral, DAILY, First dose on Fri at 0900, Until Discontinued, Routine heparin (Porcine) subcutaneous injection 5,000 Units 0 124 (Given - Provider: Ramirez Ortiz RN)0906 (Given - Provider: Kristin Hutson RN)1706 (Given - Provider: Kristin Hutson RN) 0110 (Given - Provider: Hoa Simeon N)0904 (Given - Provider: Kristin Hutson, TAZ)1706 (Given - Provider: Kristin Hutson RN) 0127 (Given - Provider: Taty Durand , TAZ)0910 (Given - Provider: Aleksandra Miller, TAZ) 5,000 Units, Subcutaneous, EVERY 8 HOURS SCHEDULED, First dose on Fri03/26/19 at 1400, Until Discontinued, Routine potassium chloride (K-DUR/KLOR-CON) extended release t ablet 40 mEq (COMPLETED) 2049 (Given - Provider: Ramirez Ortiz RN) 09 (Given - Provider: Kristin Hutson RN) 40 mEq, Oral, 2 TIMES DAILY, 2 doses, Fi rst dose on Fri03/29/19 at 2100, Last dose on Fri03/30/19 at 0900, 20 mEq tablet may be dissolved in water for administration, Routine senna-docusate (PERICOLACE) 8.6-50 mg per tablet 2 tab let 0901 (Not Given - Provider: Kristin Hutson RN - Reason: Patient/family refused)2099 (Not Given - Provider: Ramirez Ortiz RN - Reason: See comment - Comment: having loose stools) 0852 (Not Given - Provider: Kristin irving RN - Reason: Patient/family refused)2025 (Given - Provider: Taty Durand, TAZ) 0909 (Given - Provider: Aleksandra Miller, TAZ) 2 tablet, Oral, 2 TIMES DAILY, First dos e on Fri03/22/19 at 2100, Until Discontinued, Routine Continuous Medication Order 03/29/2019 03/30/2019 03/31/2019 lactated ringers infusion (CANCELED) 0607 (New Bag - P rovider: Ramirez Ortiz RN)1030 (Stopped - Provider: Kristin Hutson RN) 100 mL/hr, at 100 mL/hr, Intravenous, CO NTINUOUS, Starting 03/27/19 at 0615, Until Fri03/29/19 at 0942 PRN Medication Order 03/29/2019 03/30/2019 [...] mg 0126 (Given - Provider: Ramirez Ortiz, RN) 0915 (Given - Provider: Kristin Hutson RN) 4 mg, Intravenous, EVERY 8 HOURS PRN, [...] g 17 g, Oral, DAILY PRN, Starting Mon 03/03 06/20 at 1659, Until Fri03/31/19 at 1634, Constipation, [...] HOURS PRN, Starting Fri03/26/19 at 1031, Until 03/31/19 at 1634, Pain, severe pain (7-10)
May give an additional 5 mg in 30 minutes once if pain not relieved.
Routine documented in this encounter Care Teams Pleating Supervisor Relationship Specialty Start Date End Date None PCP - General 03/22/19 11/11/19 None documented as of this encounter
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
--- OUTSIDE RECORDS SUMMARY | 2022-01-02 11:09 | XMS_ITS | Encounter Summary ---
:1975 Author Organization [facility] Address [address] [place] [address] Care Team Providers Name Role Phone None Primary Care Provider Unavailable Encounter Details Date Type Department Care Team Description 03/23/2019 Ancillary Procedure Radiology Library at [facility] [place] [address] Social History Tobacco Use Types Packs/Day [...] Team Description 02/08/2022 Office Visit Orthopaedics Bee uDpree MD [facility] DR ORTHOP[facility]EDIC SURG [facility] [place], [place] [address] (Wo rk) documented as of this encounter Procedures Procedure Name Priority Date/Time Associated Diagnosis Comme nts REQUEST FOR 2ND STAT 03/22/2019 7:56 PM Result s for this READ CT SPINE EDT procedure are in the results section. documented in this encounter Results Request For 2nd Read CT Spine (03/22/2019 [...] below. ? Electronically signed by: Maurilio Mena MD, [facility] ([phone]), at 03/22/2019 9:06 PM Narrative 03/22/2019 9:06 PM EDT EXAMINATION: REQUEST [...] Encinas MD IMG OUTSIDE INTERPRETATION O RDERABLES documented in this encounter Visit Diagnoses Not on filedocumented in this encounter Care Teams Telephone Solicitor Supervisor Relationship Specialty Start Date End Date None PCP - General 03/22/19 11/11/19 None documented as of this encounter
--- OUTSIDE RECORDS SUMMARY | 2022-01-02 11:09 | XMS_ITS | Encounter Summary ---
:1975 Author Organization [facility] Address [address] [place] [address] Care Team Providers Name Role Phone None Primary Care Provider Unavailable Encounter Details Date Type Department Care Team Description 03/23/2019 Ancillary Procedure [place] [address] Social History Tobacco Use Types Packs/Day [...] [facility] DR ORTHOPAEDIC SURG [place], [place] [address] (Wo rk) documented as of this encounter Procedures Procedure Name Priority Date/Time Associated Diagnosis Comme nts REQUEST FOR 2ND STAT 03/22/2019 7:52 PM Resul ts for this READ CT HEAD AND EDT procedure a re in SPINE the results section. documented in this encounter Results Request For 2nd Read CT Head And [...] on filedocumented in this encounter Care Teams Gyroscopic Instrument Tester Relationship Specialty Start Date End Date None PCP - General 03/22/19 11/11/19 None documented as of this encounter
--- OUTSIDE RECORDS SUMMARY | 2022-01-02 11:09 | XMS_ITS | Encounter Summary ---
:1975 Author Organization [facility] Address [address] [address] Care Team Providers Name Role Phone None Primary Care Provider Unavailable Encounter Details Date Type Department Care Team Description 03/23/2019 Ancillary Procedure [place] [address] Social History Tobacco Use Types Packs/Day [...] 02/08/2022 Office Visit Orthopaedics Bee Dupree MD [facility] DR ORTHOPAEDIC SURG [place], [place] [address] (Wo rk) documented as of this encounter Procedures Procedure Name Priority Date/Time Associated Diagnosis Comme nts REQUEST FOR 2ND STAT 03/22/2019 7:55 PM Result s for this READ CT CHEST EDT procedure are in ABDOMEN PELVIS the results section. documented in this encounter Results Request For 2nd Read CT Chest Abdomen [...] report. Changes and final impression discussed w nyla Burroughs ??by Dr. Christina at 3:19 AM, [...] Omnipaque 350 was used. Study performed at [facility] at 1240 hours, March 22, 2019. [...] the left upper quadrant (series7, image [id number]) which tracks to the posterior left lower [...] Omnipaque 350 was used. Study performed at [facility] at 1240 hours, March 22, 2019. [...] on filedocumented in this encounter Care Teams Fingernail Sculpturer Relationship Specialty Start Date End Date None PCP - General 03/22/19 11/11/19 None documented as of this encounter
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
--- OUTSIDE RECORDS SUMMARY | 2022-01-02 11:09 | XMS_ITS | Encounter Summary ---
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 mg/dL [facility] Sodium 138 135 - 145 mmol/L [facility] Potassium 3.7 3.5 - 5.0 mmol/L [facility] Comment: Please note: ??Patients with WBC >100,00 0 may have falsely elevated Potassium levels. ??For accurate Potassium quantif ication in these patients send serum separator tube (gold top) for subsequent determinations. ??Contact the Clinical Chemistry Laboratory if there are any qu estions. Chloride 100 98 - 107 mmol/L [facility] CO2 27 22 - 31 mmol/L [facility] Anion Gap 11 5 - 15 mmol/L [facility] Calcium 8.5 8.5 - 10.5 mg/dL [facility] Estimated GFR 125 >=60 mL/min/1.73 m?? [facility] Comment: The eGFR was calculated using the CKD-EP I equation. As with all creatinine based estimates of kidney function, eGFR values calculated with the CKD-EPI equation are not accurate in patients wi th acute kidney failure, extremes of body mass or the acutely ill. [email or web address] LAWTONnkf eGFR 145 >=60 mL/min/1.73 m?? [facility] Comment: The eGFR was calculated using the CKD-EP I equation. As with all creatinine based estimates of kidney function, eGFR values calculated with the CKD-EPI equation are not accurate in patients wi th acute kidney failure, extremes of body mass or the acutely ill. [email or web address] LAWTONnkf Specimen Anatomical Collection Method Collection Time Receive d Time (Source) Location / / Volume Laterality Blood specimen 03/30/2019 9:11 AM 019 9:26 (specimen) EDT AM EDT Resulting Agency Comment Spec In Lab Bin Encinas MD CHEMISTRY ORDERABLES Performing Organization Address City/[facility]/[place] [address] Scan, Peripheral Blood (03/29/2019 1:52 PM EDT) [facility] Method Time Signature Plat Estimate Increased [facility] RBC Morphology Abnormal [facility] Macrocytes 6-10 /HPF [facility] Microcytes 1-5 /HPF [facility] Hypochromia Slight [facility] Polychromasia Present >5/HPF [facility] Stippled RBCs Present >1/HPF [facility] Specimen Anatomical Collection Method Collection Time Receive d Time (Source) Location / / Volume Laterality Blood specimen 03/29/2019 1:52 PM 019 1:58 (specimen) EDT PM EDT Resulting Agency Comment Spec In Lab Joseluis Ackerman MD HEMATOLOGY ORDERABLES Performing Organization Address City/[facility]/ZIP Code Phon e Number [address] (ABNORMAL) Differential, Automated (03/29/2019 1:52 PM EDT) [facility] Method Time Signature Neutrophils % 58.5 % [facility] Neutr Abs (ANC) 6.11 (H) 1.70 - [facility] 6.10 [facility] x10(3)/[facility] LABORATORY Lymphocytes % 14.6 % [facility] Lymphocytes Abs 1.5 0.9 - 3.[address] [facility] x10(3)/[facility] LABORATORY Monocytes % 9.0 % [facility] Monocyte Abs 0.9 0.3 - 0.[address] [facility] x10(3)/[facility] LABORATORY Eosinophils % 9.2 % [facility] Eosinophils Abs 1.0 (H) 0.0 - 0.[address] [facility] x10(3)/[facility] LABORATORY Basophils % 0.6 % [facility] Basophils Abs 0.1 0.0 - 0.[address] [facility] x10(3)/[facility] LABORATORY Immature Gran % 8.10 % [facility] Comment: Immature granulocytes(IG's)percentage an d absolute count will include metamyelocytes, myelocytes, and promyelo cytes. Blood smears from CBCs yielding IG's will be scanned manually for concor dance. If this scan disagrees with the automated IG or if promyelocytes are not ed, a manual differential will be performed. Jennifer Gran Abs 0.85 (H) 0.00 - 0.04 x10(3)/[facility] LABORATORY Specimen Anatomical Collection Method Collection Time Receive d Time (Source) Location / / Volume Laterality Blood specimen 03/29/2019 1:52 PM 019 1:58 (specimen) EDT PM EDT Resulting Agency Comment Spec In Lab Joseluis Ackerman MD HEMATOLOGY ORDERABLES Performing Organization Address City/State/ZIP Code Phon e Number [place] [id number] HOSPITAL LAB[address]ATORY Drive (ABNORMAL) Hemogram (03/29/2019 1:52 PM EDT) Analysis Performed At Patho logist Time Signature WBC 10.4 (H) 4.0 - 9.[address] [facility] x10(3)/[facility] LABORATORY RBC 2.80 (L) 4.00 - [facility] 5.21 [facility] x10(6)/[facility] LABORATORY Hemoglobin 8.0 (L) 11.7 - [facility] 15.5 gm/dL [facility] Hematocrit 25.2 (L) 35.7 - [facility] MCV 90.0 82.6 - [facility] 94.4 fL [facility] MCH 28.6 27.1 - [facility] 32.0 pg [facility] MCHC 31.7 31.7 - [facility] 35.0 gm/dL [facility] Platelets 365 (H) 145 - [address] [facility] x10(3)/[facility] LABORATORY RDWSD 53.3 (H) 37.0 [facility] 46.0 [facility] LABORATORY RDWCV 17.8 (H) 11.5 [facility] 14.1 % [facility] MPV 9.3 7.6 - 12.9 [facility] LABORATORY nRBC % Auto 0.0 % [facility] nRBC Abs Auto 0.000 0.000 - [facility] 0[facility]000 [facility] x10(3)/[facility] LABORATORY Specimen Anatomical Collection Method Collection Time Receive d Time (Source) Location / / Volume Laterality Blood specimen 03/29/2019 1:52 PM 019 1:58 (specimen) EDT PM EDT Resulting Agency Comment Spec In Lab Joseluis Ackerman MD HEMATOLOGY ORDERABLES Performing Organization Address City/State/Z[place] [address] (ABNORMAL) Basic Metabolic Panel (non-fasting) (03/29/2019 1:52 PM EDT) P athologist Signature Glucose Lvl 98 65 - [address] [facility] mg/dL [facility] Comment: Diabetes: >=200 mg/dL plus symp toms BUN 4 (L) 8 - 18 mg/dL [facility] Creatinine 0.40 (L) 0.70 - 1.20 mg/dL [facility] Sodium 139 135 - 145 mmol/L [facility] Potassium 3.2 (L) 3.5 - 5.0 mmol/L [facility] Comment: Please note: ??Patients with WBC >100,00 0 may have falsely elevated Potassium levels. ??For accurate Potassium quantif ication in these patients send serum separator tube (gold top) for subsequent determinations. ??Contact the Clinical Chemistry Laboratory if there are any qu estions. Chloride 101 98 - 107 mmol/L [facility] CO2 25 22 - 31 mmol/L [facility] Anion Gap 13 5 - 15 mmol/L [facility] Calcium 8.2 (L) 8.5 - 10.5 mg/dL [facility] Estimated GFR 129 >=60 mL/min/1.73 m?? [facility] Comment: The eGFR was calculated using the CKD-EP I equation. As with all creatinine based estimates of kidney function, eGFR values calculated with the CKD-EPI equation are not accurate in patients wi th acute kidney failure, extremes of body mass or the acutely ill. [email or web address] Hospitalk eGFR 150 >=60 mL/min/1.73 m?? [facility] Comment: The eGFR was calculated using the CKD-EP I equation. As with all creatinine based estimates of kidney function, eGFR values calculated with the CKD-EPI equation are not accurate in patients wi th acute kidney failure, extremes of body mass or the acutely ill. [email or web address] LAWTONnkf Specimen Anatomical Collection Method Collection Time Receive d Time (Source) Location / / Volume Laterality Blood specimen 03/29/2019 1:52 PM 019 1:58 (specimen) EDT PM EDT Resulting Agency Comment Spec In Lab Bin Encinas MD CHEMISTRY ORDERABLES Performing Organization Address City/State/ZIP Code Phon e Number [place] [phone] HOSPITAL LAB[address]ATORY Drive (ABNORMAL) Differential, Automated (03/28/2019 8:27 AM EDT) [facility] Method Time Signature Neutrophils % 64.4 % [facility] Neutr Abs (ANC) 7.55 (H) 1.70 - [facility] 6.10 [facility] x10(3)/[facility] LABORATORY Lymphocytes % 15.0 % [facility] Lymphocytes Abs 1.8 0.9 - 3.[address] [facility] x10(3)/[facility] LABORATORY Monocytes % 9.0 % [facility] Monocyte Abs 1.1 (H) 0.3 - 0.[address] [facility] x10(3)/[facility] LABORATORY Eosinophils % 6.2 % [facility] Eosinophils Abs 0.7 (H) 0.0 - 0.[address] [facility] x10(3)/[facility] LABORATORY Basophils % 0.7 % [facility] Basophils Abs 0.1 0.0 - 0.[address] [facility] x10(3)/[facility] LABORATORY Immature Gran % 4.70 % [facility] Comment: Immature granulocytes(IG's)percentage an d absolute count will include metamyelocytes, myelocytes, and promyelo cytes. Blood smears from CBCs yielding IG's will be scanned manually for concor dance. If this scan disagrees with the automated IG or if promyelocytes are not ed, a manual differential will be performed. Jennifer Gran Abs 0.55 (H) 0.00 - 0.04 x10(3)/[facility] LABORATORY Specimen Anatomical Collection Method Collection Time Receive d Time (Source) Location / / Volume Laterality Blood specimen 03/28/2019 8:27 AM 019 8:32 (specimen) EDT AM EDT Resulting Agency Comment Spec In Lab Becca Awan PERMIT TECHNICIAN HEMATOLOGY ORDERABLES Performing Organization Address City/State/[place] [address] (ABNORMAL) Hemogram (03/28/2019 8:27 AM EDT) Analysis Performed At Patho logist Time Signature WBC 11.7 (H) 4.0 - 9.[address] [facility] x10(3)/[facility] LABORATORY RBC 2.81 (L) 4.00 - [facility] 5.21 [facility] x10(6)/[facility] LABORATORY Hemoglobin 7.9 (L) 11.7 - [facility] 15.5 gm/dL [facility] Hematocrit 25.3 (L) 35.7 - [facility] 45.8 % [facility] MCV 90.0 82.6 - [facility] 94.4 fL [facility] MCH 28.1 27.1 - [facility] 32.0 pg [facility] MCHC 31.2 (L) 31.7 - [facility] 35.0 gm/dL [facility] Platelets 279 145 - [address] [facility] x10(3)/[facility] LABORATORY RDWSD 54.6 (H) 37.0 - [facility] 46.0 [facility] LABORATORY RDWCV 17.5 (H) 11.5 - [facility] 14.1 % [facility] MPV 9.7 7.6 - 12.9 [facility] LABORATORY nRBC % Auto 0.0 % [facility] nRBC Abs Auto 0.000 0.000 - [facility] 0.000 [facility] x10(3)/[facility] LABORATORY Specimen Anatomical Collection Method Collection Time Receive d Time (Source) Location / / Volume Laterality Blood specimen 03/28/2019 8:27 AM 019 8:32 (specimen) EDT AM EDT Resulting Agency Comment Spec In Lab Becca Awan PERMIT TECHNICIAN HEMATOLOGY ORDERABLES Performing Organization Address City/State/Z[place] [address] (ABNORMAL) Basic Metabolic Panel (non-fasting) (03/28/2019 6:23 AM EDT) P athologist Signature Glucose Lvl 90 65 - [address] [facility] mg/dL [facility] Comment: Diabetes: >=200 mg/dL plus symp toms BUN 9 8 - 18 mg/dL [facility] Creatinine 0.37 (L) 0.70 - 1.20 mg/dL [facility] Sodium 139 135 - 145 mmol/L [facility] Potassium 3.5 3.5 - 5.0 mmol/L [facility] Comment: Please note: ??Patients with WBC >100,00 0 may have falsely elevated Potassium levels. ??For accurate Potassium quantif ication in these patients send serum separator tube (gold top) for subsequent determinations. ??Contact the Clinical Chemistry Laboratory if there are any qu estions. Chloride 102 98 - 107 mmol/L [facility] CO2 26 22 - 31 mmol/L [facility] Anion Gap 11 5 - 15 mmol/L [facility]ORY Calcium 7.8 (L) 8.5 - 10.5 mg/dL [facility] Estimated GFR 133 >=60 mL/min/1.73 m?? [facility] Comment: The eGFR was calculated using the CKD-EP I equation. As with all creatinine based estimates of kidney function, eGFR values calculated with the CKD-EPI equation are not accurate in patients wi th acute kidney failure, extremes of body mass or the acutely ill. [email or web address] eGFR 154 >=60 mL/min/1.73 m?? [facility] Comment: The eGFR was calculated using the CKD-EP I equation. As with all creatinine based estimates of kidney function, eGFR values calculated with the CKD-EPI equation are not accurate in patients wi th acute kidney failure, extremes of body mass or the acutely ill. [email or web address] LAWTONnkf Specimen Anatomical Collection Method Collection Time Receive d Time (Source) Location / / Volume Laterality Blood specimen 03/28/2019 6:23 AM 019 6:27 (specimen) EDT AM EDT Resulting Agency Comment Spec In Lab Bin Encinas MD CHEMISTRY ORDERABLES Performing Organization Address City/State/ZIP Code Phon e Number [address] Scan, Peripheral Blood (03/27/2019 9:54 AM EDT) P athologist Signature Plat Estimate Normal [facility] RBC Morphology Normal [facility] Specimen Anatomical Collection Method Collection Time Receive d Time (Source) Location / / Volume Laterality Blood specimen 03/27/2019 9:54 AM 019 (specimen) EDT 10:19 AM EDT Resulting Agency Comment Spec In Lab Nicole Dawn APRN HEMATOLOGY ORDERABLES Performing Organization Address City/State/ZIP Code Phon e Number [address] (ABNORMAL) Differential, Automated (03/27/2019 9:54 AM EDT) Patholo gist Method Time Signature Neutrophils % 67.9 % [facility] Neutr Abs (ANC) 8.32 (H) 1.70 - [facility] 6.10 [facility] x10(3)/[facility] LABORATORY Lymphocytes % 14.8 % [facility] Lymphocytes Abs 1.8 0.9 - 3.[address] [facility] x10(3)/[facility] LABORATORY Monocytes % 12.8 % [facility] Monocyte Abs 1.6 (H) 0.3 - 0.[address] [facility] x10(3)/[facility] LABORATORY Eosinophils % 2.0 % [facility] Eosinophils Abs 0.2 0.0 - 0.[address] [facility] x10(3)/[facility] LABORATORY Basophils % 0.3 % [facility] Basophils Abs 0.0 0.0 - 0.[address] [facility] x10(3)/[facility] LABORATORY Immature Gran % 2.20 % [facility] Comment: Immature granulocytes(IG's)percentage an d absolute count will include metamyelocytes, myelocytes, and promyelo cytes. Blood smears from CBCs yielding IG's will be scanned manually for concor dance. If this scan disagrees with the automated IG or if promyelocytes are not ed, a manual differential will be performed. Jennifer Gran Abs 0.27 (H) 0.00 - 0.04 x10(3)/[facility] LABORATORY Specimen Anatomical Collection Method Collection Time Receive d Time (Source) Location / / Volume Laterality Blood specimen 03/27/2019 9:54 AM 019 (specimen) EDT 10:19 AM EDT Resulting Agency Comment Spec In Lab Nicole Dawn APRN HEMATOLOGY ORDERABLES Performing Organization Address City/State/ZIP [place] [address] (ABNORMAL) Hemogram (03/27/2019 9:54 AM EDT) [facility] Method Time Signature WBC 12.3 (H) 4.0 - 9.[address] [facility] x10(3)/[facility] LABORATORY RBC 3.28 (L) 4.00 - [facility] 5.21 [facility] x10(6)/[facility] LABORATORY Hemoglobin 9.3 (L) 11.7 - [facility] 15.5 gm/dL [facility] Hematocrit 28.8 (L) 35.7 - [facility] 45.8 % [facility] MCV 87.8 82.6 - [facility] 94.4 [facility] LABORATORY MCH 28.4 27.1 - [facility] 32.0 pg [facility] MCHC 32.3 31.7 - DEREJE GALVANCK 35.0 gm/dL [facility] Platelets 269 145 - [address] [facility] x10(3)/[facility] LABORATORY RDWSD 53.0 (H) 37.0 - DEREJE MIKE 46.0 [facility] LABORATORY RDWCV 17.9 (H) 11.5 - DEREJE MIKE 14.1 % [facility] MPV 10.1 7.6 - 12.9 [facility] LABORATORY nRBC % Auto 0.2 % [facility] nRBC Abs Auto 0.020 (H) 0.000 - DEREJE MIKE 0.000 [facility] x10(3)/[facility] LABORATORY Specimen Anatomical Collection Method Collection Time Receive d Time (Source) Location / / Volume Laterality Blood specimen 03/27/2019 9:54 AM 019 (specimen) EDT 10:19 AM EDT Resulting Agency Comment Spec In Lab Nicole Dawn APRN HEMATOLOGY ORDERABLES Performing Organization Address City/State/ZIP [place] [address] (ABNORMAL) Basic Metabolic Panel (non-fasting) (03/27/2019 9:54 AM EDT) P athologist Signature Glucose Lvl 104 65 - [address] [facility] mg/dL [facility] Comment: Diabetes: >=200 mg/dL plus symp toms BUN 10 8 - 18 mg/dL [facility] Creatinine 0.37 (L) 0.70 - 1.20 mg/dL [facility] Sodium 140 135 - 145 mmol/L [facility] Potassium 3.8 3.5 - 5.0 mmol/L [facility] Comment: Please note: ??Patients with WBC >100,00 0 may have falsely elevated Potassium levels. ??For accurate Potassium quantif ication in these patients send serum separator tube (gold top) for subsequent determinations. ??Contact the Clinical Chemistry Laboratory if there are any qu estions. Chloride 101 98 - 107 mmol/L [facility] CO2 28 22 - 31 mmol/L [facility] Anion Gap 11 5 - 15 mmol/L [facility] Calcium 8.2 (L) 8.5 - 10.5 mg/dL [facility] Estimated GFR 133 >=60 mL/min/1.73 m?? [facility] Comment: The eGFR was calculated using the CKD-EP I equation. As with all creatinine based estimates of kidney function, eGFR values calculated with the CKD-EPI equation are not accurate in patients wi th acute kidney failure, extremes of body mass or the acutely ill. [email or web address]WTONnkf eGFR 154 >=60 mL/min/1.73 m?? [facility] Comment: The eGFR was calculated using the CKD-EP I equation. As with all creatinine based estimates of kidney function, eGFR values calculated with the CKD-EPI equation are not accurate in patients wi th acute kidney failure, extremes of body mass or the acutely ill. [email or web address]WTONnkf Specimen Anatomical Collection Method Collection Time Receive d Time (Source) Location / / Volume Laterality Blood specimen 03/27/2019 9:54 AM 019 (specimen) EDT 10:19 AM EDT Resulting Agency Comment Spec In Lab Nicole Dawn APRN CHEMISTRY ORDERABLES Performing Organization Address City/State/ZIP [place] [address] XR Abdomen 1 view [...] ? Electronically signed by: Maurilio Mena MD, [facility] ([phone]), at 03/26/2019 10:08 PM Narrative 03/26/2019 10:08 PM EDT EXAMINATION: XR [...] number below. Electronically signed by: Maurilio Mena MD, [facility] ([phone]), at 03/26/2019 10:08 PM Bin Encinas MD IMG DX ORDERABLES XR [...] e number below. ? Electronically signed by: Nir Eagle [facility] ([phone]), at 03/26/2019 2:26 PM Narrative 03/26/2019 2:26 PM EDT EXAMINATION: XR [...] (ABNORMAL) Differential, Automated (03/26/2019 3:17 AM EDT) [facility] Method Time Signature Neutrophils % 73.5 % [facility] Neutr Abs (ANC) 6.89 (H) 1.70 - [facility] 6.10 [facility] x10(3)/[facility] LABORATORY Lymphocytes % 13.6 % [facility] Lymphocytes Abs 1.3 0.9 - 3.[address] [facility] x10(3)/[facility] LABORATORY Monocytes % 9.7 % [facility] Monocyte Abs 0.9 0.3 - 0.[address] [facility] x10(3)/[facility] LABORATORY Eosinophils % 1.9 % [facility] Eosinophils Abs 0.2 0.0 - 0.[address] [facility] x10(3)/[facility] LABORATORY Basophils % 0.3 % [facility] Basophils Abs 0.0 0.0 - 0.[address] [facility] x10(3)/[facility] LABORATORY Immature Gran % 1.00 % [facility] Comment: Immature granulocytes(IG's)percentage an d absolute count will include metamyelocytes, myelocytes, and promyelo cytes. Blood smears from CBCs yielding IG's will be scanned manually for jac roberts. If this scan disagrees with the automated IG or if promyelocytes are not ed, a manual differential will be performed. Jennifer Gran Abs 0.09 (H) 0.00 - 0.04 x10(3)/[facility] LABORATORY Specimen Anatomical Collection Method Collection Time Receive d Time (Source) Location / / Volume Laterality Blood specimen 03/26/2019 3:17 AM 019 3:27 (specimen) EDT AM EDT Resulting Agency Comment Spec In Lab Joseluis Ackerman MD HEMATOLOGY ORDERABLES Performing Organization Address City/State/Z[place] [address] (ABNORMAL) Hemogram (03/26/2019 3:17 AM EDT) Analysis Performed At Patho logist Time Signature WBC 9.4 4.0 - 9.[address] [facility] x[facility](3[facility] LABORATORY RBC 2.49 (L) 4.00 - [facility] MIEK 5.21 [facility] x10(6)/[facility] LABORATORY Hemoglobin 7.1 (L) 11.7 - [facility] MIKE 15.5 gm/dL [facility] Hematocrit 21.8 (L) 35.7 - [facility] MIKE 45.8 % [facility] MCV 87.6 82.6 - [facility] 94.4 [facility] LABORATORY MCH 28.5 27.1 - [facility] MIKE 32.0 pg [facility] MCHC 32.6 31.7 - [facility] MIKE 35.0 gm/dL [facility] Platelets 174 145 - [address] [facility] x[facility](3[facility] LABORATORY RDWSD 52.3 (H) 37.0 - [facility] MIKE 46.0 [facility] LABORATORY RDWCV 16.9 (H) 11.5 - [facility] MIKE 14.1 % [facility] MPV 9.9 7.6 - 12.9 [facility] LABORATORY nRBC % Auto 0.0 % [facility] nRBC Abs Auto 0.000 0.000 - [facility] 0.000 [facility] x10(3)/[facility] LABORATORY Specimen Anatomical Collection Method Collection Time Receive d Time (Source) Location / / Volume Laterality Blood specimen 03/26/2019 3:17 AM 019 3:27 (specimen) EDT AM EDT Resulting Agency Comment Spec In Lab Joseluis Ackerman MD HEMATOLOGY ORDERABLES Performing Organization Address City/State/ZIP [place] [address] (ABNORMAL) Basic Metabolic Panel (non-fasting) (03/26/2019 3:17 AM EDT) athologist Signature Glucose Lvl 104 65 - [address] [facility] mg/dL [facility] Comment: Diabetes: >=200 mg/dL plus symp toms BUN 8 8 - 18 mg/dL [facility] Creatinine 0.48 (L) 0.70 - 1.20 mg/dL [facility] Sodium 142 135 - 145 mmol/L [facility] Potassium 3.5 3.5 - 5.0 mmol/L [facility] Comment: Please note: ??Patients with WBC >100,00 0 may have falsely elevated Potassium levels. ??For accurate Potassium quantif ication in these patients send serum separator tube (gold top) for subsequent determinations. ??Contact the Clinical Chemistry Laboratory if there are any qu estions. Chloride 105 98 - 107 mmol/L [facility] CO2 28 22 - 31 mmol/L [facility] Anion Gap 9 5 - 15 mmol/L [facility] Calcium 8.0 (L) 8.5 - 10.5 mg/dL [facility] Estimated GFR 122 >=60 mL/min/1.73 m?? [facility] Comment: The eGFR was calculated using the CKD-EP I equation. As with all creatinine based estimates of kidney function, eGFR values calculated with the CKD-EPI equation are not accurate in patients wi th acute kidney failure, extremes of body mass or the acutely ill. [email or web address] eGFR 141 >=60 mL/min/1.73 m?? [facility] Comment: The eGFR was calculated using the CKD-EP I equation. As with all creatinine based estimates of kidney function, eGFR values calculated with the CKD-EPI equation are not accurate in patients wi th acute kidney failure, extremes of body mass or the acutely ill. [email or web address]WTONnkf Specimen Anatomical Collection Method Collection Time Receive d Time (Source) Location / / Volume Laterality Blood specimen 03/26/2019 3:17 AM 019 3:27 (specimen) EDT AM EDT Resulting Agency Comment Spec In Lab Bin Encinas MD CHEMISTRY ORDERABLES Performing Organization Address City/[facility]/[place]IP [place] [address] (ABNORMAL) Hepatic Function Panel (03/26/2019 3:17 AM EDT) P athologist Signature Total Protein 5.0 (L) 6.1 - 8.0 [facility] gm/dL [facility] Albumin 2.6 (L) 3.2 - 5.2 [facility] MIKE gm/dL [facility] AST 33 (H) 0 - 30 [facility] unit/L [facility] ALT 25 0 - 30 [facility] MIKE unit/L [facility] Alk Phos 38 35 - 105 [facility] unit/L [facility] Total 0.3 0.2 - 1.[address] [facility] Bilirubin mg/dL [facility] Bili, Direct 0.1 0.0 - 0.3 [facility] MIKE mg/dL [facility] Specimen Anatomical Collection Method Collection Time Receive d Time (Source) Location / / Volume Laterality Blood specimen 03/26/2019 3:17 AM 019 3:27 (specimen) EDT AM EDT Resulting Agency Comment Spec In Lab Bin Encinas MD CHEMISTRY ORDERABLES Performing Organization Address City/[facility]/[place] [address] XR Fluoro No Rad <1Hr - OR Use (03/25/2019 11:54 AM EDT) Specimen (Source) Anatomical Location Collection Method / Collectio n Time Received Time / Laterality Volume Narrative RAD - 03/25/2019 11:54 AM EDT This exam is auto-finalizing. No interpr etation was done. Bin Encinas MD IMG FLUORO ORDERABLES Performing Organization Address City/State/ZIP Code Phon e Number [facility] [place] (ABNORMAL) Differential, Automated (03/25/2019 2:28 AM EDT) [facility] Method Time Signature Neutrophils % 70.5 % [facility] Neutr Abs (ANC) 7.74 (H) 1.70 - [facility] 6.10 [facility] x10(3)/[facility] LABORATORY Lymphocytes % 14.4 % [facility] Lymphocytes Abs 1.6 0.9 - 3.[address] [facility] x10(3)/[facility] LABORATORY Monocytes % 9.4 % [facility] Monocyte Abs 1.0 (H) 0.3 - 0.[address] [facility] x10(3)/[facility] LABORATORY Eosinophils % 4.7 % [facility] Eosinophils Abs 0.5 (H) 0.0 - 0.[address] [facility] x10(3)/[facility] LABORATORY Basophils % 0.5 % [facility] Basophils Abs 0.0 0.0 - 0.[address] [facility] x10(3)/[facility] LABORATORY Immature Gran % 0.50 % [facility] Comment: Immature granulocytes(IG's)percentage an d absolute count will include metamyelocytes, myelocytes, and promyelo cytes. Blood smears from CBCs yielding IG's will be scanned manually for concor dance. If this scan disagrees with the automated IG or if promyelocytes are not ed, a manual differential will be performed. Jennifer Gran Abs 0.05 (H) 0.00 - 0.04 x10(3)/[facility] LABORATORY Specimen Anatomical Collection Method Collection Time Receive d Time (Source) Location / / Volume Laterality Blood specimen 03/25/2019 2:28 AM 019 3:09 (specimen) EDT AM EDT Resulting Agency Comment Spec In Lab Tk Belle MD HEMATOLOGY ORDERABLES Performing Organization Address City/State/ZIP Code Phon e Number [address] (ABNORMAL) Hemogram (03/25/2019 2:28 AM EDT) Analysis Performed At Patho logist Time Signature WBC 11.0 (H) 4.0 - 9.[address] [facility] x[facility](3[facility] LABORATORY RBC 2.72 (L) 4.00 - DEREJE MIKE 5.21 [facility] x10(6)/[facility] LABORATORY Hemoglobin 7.9 (L) 11.7 - [facility] 15.5 gm/dL [facility] Hematocrit 23.4 (L) 35.7 - [facility] 45.8 % [facility] MCV 86.0 82.6 - [facility] 94.4 [facility] LABORATORY MCH 29.0 27.1 - DEREJE MIKE 32.0 pg [facility] MCHC 33.8 31.7 - [facility] 35.0 gm/dL [facility] Platelets 120 (L) 145 - [address] [facility] x10(3)/[facility] LABORATORY RDWSD 54.6 (H) 37.0 - [facility] 46.0 [facility] LABORATORY RDWCV 17.5 (H) 11.5 - [facility] MIKE 14.1 % [facility] MPV 10.3 7.6 - 12.[address] [facility] nRBC % Auto 0.0 % [facility] nRBC Abs Auto 0.000 0.000 - DEREJE MIKE 0.000 [facility] x10(3)/[facility] LABORATORY Specimen Anatomical Collection Method Collection Time Receive d Time (Source) Location / / Volume Laterality Blood specimen 03/25/2019 2:28 AM 019 3:09 (specimen) EDT AM EDT Resulting Agency Comment Spec In Lab Tk Belle MD HEMATOLOGY ORDERABLES Performing Organization Address City/State/ZIP Code Phon e Number [address] (ABNORMAL) Hepatic Function Panel (03/25/2019 2:28 AM EDT) P athologist Signature Total Protein 4.4 (L) 6.1 - 8.0 DEREJE MIKE gm/dL [facility] Albumin 2.5 (L) 3.2 - 5.2 DEREJE MIKE gm/dL [facility] AST 41 (H) 0 - 30 [facility] MIKE unit/L [facility] ALT 24 0 - 30 DEREJE MIKE unit/L [facility] Alk Phos 38 35 - 105 [facility] MI[facility] unit/L [facility] Total 0.4 0.2 - 1.3 DEREJE MIKE Bilirubin mg/dL [facility] Bili, Direct 0.1 0.0 - 0.3 [facility] MI[facility] mg/dL [facility] Specimen Anatomical Collection Method Collection Time Receive d Time (Source) Location / / Volume Laterality Blood specimen 03/25/2019 2:28 AM 019 3:09 (specimen) EDT AM EDT Resulting Agency Comment Spec In Lab Bin Encinas MD CHEMISTRY ORDERABLES Performing Organization Address City/State/[place] [address] POCT Glucose (03/24/2019 11:59 AM EDT) athologist [facility] POC Glucose 95 65 - 199 [facility] mg/dL [facility] Comment: Supplemental ranges: <140 mg/dL before meals <180 mg/dL all other times of the day Specimen Anatomical Collection Method Collection Time Receive d Time (Source) Location / / Volume Laterality Blood specimen 03/24/2019 11:59 9 (specimen) AM EDT 11:59 AM EDT Sunshine Moncada MD POINT OF CARE TEST ORDERABLE S Performing Organization Address City/[facility]/[place] [address] (ABNORMAL) Hemogram (03/24/2019 11:55 AM EDT) Analysis Performed At Patho logist Time Signature WBC 11.0 (H) 4.0 - 9.5 [facility] MIKE x10(3)/[facility] LABORATORY RBC 2.71 (L) 4.00 - DEREJE [place] 5.21 [facility] x10(6)/[facility] LABORATORY Hemoglobin 7.7 (L) 11.7 - DEREJE [place]OCK 15.5 gm/dL [facility] Hematocrit 22.3 (L) 35.7 - DEREJE [place]MACOCK 45.8 % [facility] MCV 82.3 (L) 82.6 - [facility] 94.4 [facility] LABORATORY MCH 28.4 27.1 - DEREJE [place] 32.0 pg [facility] MCHC 34.5 31.7 - DEREJE [place] 35.0 gm/dL [facility] Platelets 117 (L) 145 - [address] [facility] x10(3)/[facility] LABORATORY RDWSD 49.0 (H) 37.0 - DEREJE [place]OCK 46.0 [facility] LABORATORY RDWCV 16.7 (H) 11.5 - [facility] MIKE 14.1 % [facility] MPV 10.5 7.6 - 12.9 [facility]ORY nRBC % Auto 0.0 % [facility] nRBC Abs Auto 0.000 0.000 - DEREJE OLMEDOMIKE 0.000 [facility] x10(3)/[facility] LABORATORY Specimen Anatomical Collection Method Collection Time Receive d Time (Source) Location / / Volume Laterality Blood specimen 03/24/2019 11:55 9 (specimen) AM EDT 12:05 PM EDT Resulting Agency Comment Spec In Lab Sunshine Moncada MD HEMATOLOGY ORDERABLES Performing Organization Address City/State/Z[place] [address] POCT Glucose (03/24/2019 7:50 AM EDT) P athologist Signature POC Glucose 94 65 - [address] [facility] mg/dL [facility] Comment: Supplemental ranges: <140 mg/dL before meals <180 mg/dL all other times of the day Specimen Anatomical Collection Method Collection Time Receive d Time (Source) Location / / Volume Laterality Blood specimen 03/24/2019 7:50 AM 019 7:50 (specimen) EDT AM EDT Sunshine Moncada MD POINT OF CARE TEST ORDERABLE S Performing Organization Address City/State/ZIP Code Phon e Number [address] (ABNORMAL) Hemogram (03/24/2019 6:00 AM EDT) Analysis Performed At Patho logist Time Signature WBC 10.5 (H) 4.0 - 9.[address] [facility] x[facility](3[facility] LABORATORY RBC 2.82 (L) 4.00 - DEREJE MIKE 5.21 [facility] x10(6)/[facility] LABORATORY Hemoglobin 8.0 (L) 11.7 - [facility] 15.5 gm/dL [facility] Hematocrit 22.6 (L) 35.7 - [facility] 45.8 % [facility] MCV 80.1 (L) 82.6 - [facility] 94.4 [facility] LABORATORY MCH 28.4 27.1 - DEREJE MIKE 32.0 pg [facility] MCHC 35.4 (H) 31.7 - [facility] MIKE 35.0 gm/dL [facility] Platelets 110 (L) 145 - [address] [facility] x10(3)/[facility] LABORATORY RDWSD 47.8 (H) 37.0 - [facility] MIKE 46.0 [facility] LABORATORY RDWCV 16.5 (H) 11.5 - [facility] MIKE 14.1 % [facility] MPV 10.1 7.6 - 12.9 [facility] LABORATORY nRBC % Auto 0.0 % [facility] nRBC Abs Auto 0.000 0.000 - DEREJE MIKE 0.000 [facility] x10(3)/[facility] LABORATORY Specimen Anatomical Collection Method Collection Time Receive d Time (Source) Location / / Volume Laterality Blood specimen 03/24/2019 6:00 AM 019 6:03 (specimen) EDT AM EDT Resulting Agency Comment Spec In Lab Sunshine Moncada MD HEMATOLOGY ORDERABLES Performing Organization Address City/State/ZIP Code Phon e Number [address] Transfuse RBC (03/24/2019 4:06 AM EDT) Sunshine Moncada MD NURSING TREATMENT ORDERABLES - BLOOD ADMIN Transfuse RBC (03/24/2019 4:06 AM EDT) Sunshine Moncada MD NURSING TREATMENT ORDERABLES - BLOOD ADMIN Prepare RBC (03/24/2019 1:35 AM EDT) P athologist Signature Dispensed? Yes [facility] Specimen Anatomical Collection Method Collection Time Receive d Time (Source) Location / / Volume Laterality Blood specimen 03/24/2019 1:35 AM 019 1:32 (specimen) EDT AM EDT Sunshine Moncada MD BLOOD BANK ORDERABLES Performing Organization Address City/State/Z[place] [address] (ABNORMAL) Hemogram (03/24/2019 12:10 AM EDT) Analysis Performed At Patho logist Time Signature WBC 10.5 (H) 4.0 - 9.5 [facility] x[facility](3)/[facility] LABORATORY RBC 2.48 (L) 4.00 - DEREJE MIKE 5.21 [facility] x10(6)/[facility] LABORATORY Hemoglobin 6.9 (L) 11.7 - [facility] 15.[facility] gm/dL [facility] Hematocrit 19.7 (L) 35.7 - [facility] 45.8 % [facility] MCV 79.4 (L) 82.6 - [facility] 94.4 [facility] LABORATORY MCH 27.8 27.1 - [facility] MI[facility] 32.0 pg [facility] MCHC 35.0 31.7 - [facility] 35.0 gm/dL [facility] Platelets 118 (L) 145 - [address] [facility] x[facility](3[facility] LABORATORY RDWSD 51.8 (H) 37.0 - [facility] 46.0 [facility] LABORATORY RDWCV 17.8 (H) 11.5 - [facility] 14.1 % [facility] MPV 10.6 7.6 - 12.9 [facility] LABORATORY nRBC % Auto 0.0 % [facility] nRBC Abs Auto 0.000 0.000 - DEREJE [place] 0.000 [facility] x10(3)/[facility] LABORATORY Specimen Anatomical Collection Method Collection Time Receive d Time (Source) Location / / Volume Laterality Blood specimen 03/24/2019 12:10 9 (specimen) AM EDT 12:14 AM EDT Resulting Agency Comment Spec In Lab Sunshine Moncada MD HEMATOLOGY ORDERABLES Performing Organization Address City/[facility]/ZIP [facility] Number [address] (ABNORMAL) Prothrombin Time (03/24/2019 12:10 AM EDT) P athologist Signature PT 16.2 (H) 9.4 - 12.5 [facility] LABORATORY INR 1.4 [facility] Comment: An INR <2.0 indicates [...] Organization Address City/[facility]/[place] [address] (ABNORMAL) Hepatic Function Panel (03/24/2019 12:10 AM EDT) P athologist Signature Total Protein 4.4 (L) 6.1 - 8.0 [facility] gm/dL [facility] Albumin 2.7 (L) 3.2 - 5.2 [facility] gm/dL [facility] AST 55 (H) 0 - 30 [facility] unit/L [facility] ALT 29 0 - 30 [facility] Alk Phos 34 (L) 35 - 105 DEREJE MIKE unit/L [facility] Total 0.6 0.2 - 1.[address] [facility] Bilirubin mg/dL [facility] Bili, Direct 0.2 0.0 - 0.[address] [facility] mg/dL [facility] Specimen Anatomical Collection Method Collection Time Receive d Time (Source) Location / / Volume Laterality Blood specimen 03/24/2019 12:10 9 (specimen) AM EDT 12:14 AM EDT Resulting Agency Comment Spec In Lab Bin Encinas MD CHEMISTRY ORDERABLES Performing Organization Address City/State/ZIP [place] [address] (ABNORMAL) Basic Metabolic Panel (non-fasting) (03/24/2019 12:10 AM EDT) P athologist Signature Glucose Lvl 128 65 - [address] [facility] mg/dL [facility] Comment: Diabetes: >=200 mg/dL plus symp toms BUN 5 (L) 8 - 18 mg/dL [facility] Creatinine 0.49 (L) 0.70 - 1.20 mg/dL [facility] Sodium 140 135 - 145 mmol/L [facility] Potassium 3.9 3.5 - 5.0 mmol/L [facility] Comment: Please note: ??Patients with WBC >100,00 0 may have falsely elevated Potassium levels. ??For accurate Potassium quantif ication in these patients send serum separator tube (gold top) for subsequent determinations. ??Contact the Clinical Chemistry Laboratory if there are any qu estions. Chloride 107 98 - 107 mmol/L [facility] CO2 26 22 - 31 mmol/L [facility] Anion Gap 7 5 - 15 mmol/L [facility] Calcium 7.8 (L) 8.5 - 10.5 mg/dL [facility] Estimated GFR 121 >=60 mL/min/1.73 m?? [facility] Comment: The eGFR was calculated using the CKD-EP I equation. As with all creatinine based estimates of kidney function, eGFR values calculated with the CKD-EPI equation are not accurate in patients wi th acute kidney failure, extremes of body mass or the acutely ill. [email or web address]/[facility] eGFR 140 >=60 mL/min/1.73 m?? [facility] Comment: The eGFR was calculated using the CKD-EP I equation. As with all creatinine based estimates of kidney function, eGFR values calculated with the CKD-EPI equation are not accurate in patients wi th acute kidney failure, extremes of body mass or the acutely ill. [email or web address]nkf Specimen Anatomical Collection Method Collection Time Receive d Time (Source) Location / / Volume Laterality Blood specimen 03/24/2019 12:10 9 (specimen) AM EDT 12:14 AM EDT Resulting Agency Comment Spec In Lab Sunshine Moncada MD CHEMISTRY ORDERABLES Performing Organization Address City/[facility]/[place] [address] POCT Glucose (03/23/2019 8:35 PM EDT) P athologist Signature POC Glucose 126 65 - [address] [facility] mg/dL [facility] Comment: Supplemental ranges: <140 mg/dL before meals <180 mg/dL all other times of the day Specimen Anatomical Collection Method Collection Time Receive d Time (Source) Location / / Volume Laterality Blood specimen 03/23/2019 8:35 PM 019 8:35 (specimen) EDT PM EDT Sunshine Moncada MD POINT OF CARE TEST ORDERABLE S Performing Organization Address City/[facility]/[place] [address] (ABNORMAL) Hemogram (03/23/2019 5:30 PM EDT) Analysis Performed At Patho logist Time Signature WBC 9.7 (H) 4.0 - 9.[address] [facility] x10(3)/[facility] LABORATORY RBC 2.72 (L) 4.00 [facility] 5.21 [facility] x10(6)/[facility] LABORATORY Hemoglobin 7.7 (L) 11.7 - [place] 15.5 gm/dL [facility] Hematocrit 21.8 (L) 35.7 - [place] 45.8 % [facility] MCV 80.1 (L) 82.6 - [place] 94.4 [facility] LABORATORY MCH 28.3 27.1 - [place] 32.0 pg [facility] MCHC 35.3 (H) 31.7 - [place] 35.0 gm/dL [facility] Platelets 114 (L) 145 - 357 [place] x10(3)/[facility] LABORATORY RDWSD 49.9 (H) 37.0 - [place] 46.0 [facility] LABORATORY RDWCV 17.2 (H) 11.5 - [place] 14.1 % [facility] MPV 10.5 7.6 - 12.9 D[place] MCKEON [facility] LABORATORY nRBC % Auto 0.0 % [facility] nRBC Abs Auto 0.000 0.000 - [place] 0.000 [facility] x10(3)/[facility] LABORATORY Specimen Anatomical Collection Method Collection Time Receive d Time (Source) Location / / Volume Laterality Blood specimen 03/23/2019 5:30 PM 019 5:45 (specimen) EDT PM EDT Resulting Agency Comment Spec In Lab Sunshine Moncada MD HEMATOLOGY ORDERABLES Performing Organization Address City/State/[place] [address] POCT Glucose (03/23/2019 5:27 PM EDT) P athologist Signature POC Glucose 109 65 - 199 [place] mg/dL [facility] Comment: Supplemental ranges: <140 mg/dL before meals <180 mg/dL all other times of the day Specimen Anatomical Collection Method Collection Time Receive d Time (Source) Location / / Volume Laterality Blood specimen 03/23/2019 5:27 PM 019 5:27 (specimen) EDT PM EDT Sunshine Moncada MD POINT OF CARE TEST ORDERABLE S Performing Organization Address City/State/[place] [address] XR Fluoro No Rad <1Hr - OR Use (03/23/2019 4:47 PM EDT) Specimen (Source) Anatomical Location Collection Method / Collectio n Time Received Time / Laterality Volume Narrative DH RAD - 03/23/2019 4:48 PM EDT This exam is auto-finalizing. No interpr etation was done. Sunshine Moncada MD IMG FLUORO ORDERABLES Performing Organization Address City/State/ZIP Code Phon e Number RAD DH RAD [place] POCT Glucose (03/23/2019 12:04 PM EDT) P athologist Signature POC Glucose 116 65 - [address] [facility] mg/dL [facility] Comment: Supplemental ranges: <140 mg/dL before meals <180 mg/dL all other times of the day Specimen Anatomical Collection Method Collection Time Receive d Time (Source) Location / / Volume Laterality Blood specimen 03/23/2019 12:04 9 (specimen) PM EDT 12:04 PM EDT Bin Encinas MD POINT OF CARE TEST ORDERABLE S Performing Organization Address City/State/ZIP [place] [address] Scan, Peripheral Blood (03/23/2019 10:15 AM EDT) Patholo gist Method Time Signature Plat Estimate Decreased [facility] RBC Morphology Abnormal [facility] Hypochromia Slight [facility] Island Cells 1-5 /HPF [facility] Stippled RBCs Present >1/HPF [facility] Specimen Anatomical Collection Method Collection Time Receive d Time (Source) Location / / Volume Laterality Blood specimen 03/23/2019 10:15 9 (specimen) AM EDT 10:44 AM EDT Resulting Agency Comment Spec In Lab Kings Dukes MD HEMATOLOGY ORDERABLES Performing Organization Address City/[facility]/ZIP [place] [address] (ABNORMAL) Hemogram (03/23/2019 10:15 AM EDT) Analysis Performed At Patho logist Time Signature WBC 8.3 4.0 - 9.[address] [facility] x[facility](3[facility] LABORATORY RBC 2.72 (L) 4.00 - [place] 5.21 [facility] x10(6)/[facility] LABORATORY Hemoglobin 7.6 (L) 11.7 - [place] 15.5 gm/dL [facility] Hematocrit 22.0 (L) 35.7 - [facility] 45.8 % [facility] MCV 80.9 (L) 82.6 - [facility] 94.4 [facility] LABORATORY MCH 27.9 27.1 - [facility] 32.0 pg [facility] MCHC 34.5 31.7 - [place] 35.0 gm/dL [facility] Platelets 69 (L) 145 - [address] [facility] x10(3)/[facility] LABORATORY RDWSD 47.5 (H) 37.0 [facility] 46.0 [facility] LABORATORY RDWCV 16.4 (H) 11.5 [facility] 14.1 % [facility] MPV 10.5 7.6 - 12.9 [facility] LABORATORY nRBC % Auto 0.0 % [facility] nRBC Abs Auto 0.000 0.000 - [place] 0.000 [facility] x10(3)/[facility] LABORATORY Specimen Anatomical Collection Method Collection Time Receive d Time (Source) Location / / Volume Laterality Blood specimen 03/23/2019 10:15 9 (specimen) AM EDT 10:44 AM EDT Resulting Agency Comment Spec In Lab Sunshine Moncada MD HEMATOLOGY ORDERABLES Performing Organization Address City/State/ZIP [place] [address] (ABNORMAL) Calcium (03/23/2019 10:15 AM EDT) P athologist Signature Calcium 7.1 (L) 8.5 - 10.[address] [facility] mg/dL [facility] Specimen Anatomical Collection Method Collection Time Receive d Time (Source) Location / / Volume Laterality Blood specimen 03/23/2019 10:15 9 (specimen) AM EDT 10:44 AM EDT Resulting Agency Comment Spec In Lab Bin Encinas MD CHEMISTRY ORDERABLES Performing Organization Address City/[facility]/ZIP Code Phon e Number [address] APTT (03/23/2019 10:15 AM EDT) P athologist Signature PTT 27 25 - 37 sec [facility] Comment: The PTT is NOT [...] Encinas MD HEMATOLOGY ORDERABLES Performing Organization Address [facility] Phon e Number [address] EKG 12 Lead (03/23/2019 9:01 AM EDT) Component Value Ref Range Test Analysis Performed Pathologis t Method Time At Signature Ventricular rate 93 BPM MUSE SYSTEM Atrial Rate 93 BPM MUSE SYSTEM P-R Interval 132 ms MUSE SYSTEM QRS Duration 88 ms MUSE SYSTEM Q-T Interval 340 ms MUSE SYSTEM QTC Calculated 422 ms MUSE SYSTEM (Bezet) Calculated P [place] 51 degrees MUSE SYSTEM Calculated R [place] 52 degrees MUSE SYSTEM Calculated T [place] 33 degrees MUSE SYSTEM INTERPRETATION Normal sinus rhythm MUSE SYSTEM Nonspecific T wave abnormality Abnormal ECG No previous ECGs available Confirmed by MD Vanessa, [facility] ([id number]) on 03/23/2019 9:3 3:21 AM Specimen Anatomical Collection Method Collection Time Receive d Time (Source) Location / / Volume Laterality 03/23/2019 9:01 AM 9 9:33 EDT AM EDT Bin Encinas MD ECG ORDERABLES Performing Organization Address City/[facility]/ZIP Code Phon e Number MUSE SYSTEM POCT Glucose (03/23/2019 8:08 AM EDT) P athologist Signature POC Glucose 100 65 - [address] [facility] mg/dL [facility] Comment: Supplemental ranges: <140 mg/dL before meals <180 mg/dL all other times of the day Specimen Anatomical Collection Method Collection Time Receive d Time (Source) Location / / Volume Laterality Blood specimen 03/23/2019 8:08 AM 019 8:08 (specimen) EDT AM EDT Bin Encinas MD POINT OF CARE TEST ORDERABLE S Performing Organization Address City/State/ZIP [place] [address] Transfuse RBC (03/23/2019 7:22 [...] For questions regarding this report, please contact [facility] number below. Bin Encinas MD IMG [...] For questions regarding this report, please contact [facility] number below. ? Narrative 03/23/2019 6:39 AM [...] th e number below. ? Narrative 03/23/2019 7:31 [...] at the neck has been reduced. The strap stitcher ior subtalar joint is congruent. There is [...] at the neck has been reduced. The strap stitcher ior subtalar joint is congruent. There is [...] For questions regarding this report, please contact [facility] number below. Bin Encinas MD IMG [...] 4:15 AM EDT) athologist Signature Dispensed? Yes [facility] Specimen Anatomical Collection Method Collection Time Receive d Time (Source) Location / / Volume Laterality Blood specimen 03/23/2019 4:15 AM 019 4:15 (specimen) EDT AM EDT Bin Encinas MD BLOOD BANK ORDERABLES Performing Organization Address City/State/[place] [address] Differential, Automated (03/23/2019 3:52 AM EDT) athologist Signature Neutrophils % 77.5 % [facility] Neutr Abs (ANC) 5.31 1.70 - [facility] 6.10 [facility] x10(3)/[facility] LABORATORY Lymphocytes % 12.6 % [facility] Lymphocytes Abs 0.9 0.9 - 3.[address] [facility] x10(3)/[facility] LABORATORY Monocytes % 9.5 % [facility] Monocyte Abs 0.6 0.3 - 0.[address] [facility] x10(3)/[facility] LABORATORY Eosinophils % 0.0 % [facility] Eosinophils Abs 0.0 0.0 - 0.[address] [facility] x10(3)/[facility] LABORATORY Basophils % 0.1 % [facility] Basophils Abs 0.0 0.0 - 0.[address] [facility] x10(3)/[facility] LABORATORY Immature Gran % 0.30 % [facility] Comment: Immature granulocytes(IG's)percentage an d absolute count will include metamyelocytes, myelocytes, and promyelo cytes. Blood smears from CBCs yielding IG's will be scanned manually for concor dance. If this scan disagrees with the automated IG or if promyelocytes are not ed, a manual differential will be performed. Jennifer Gran Abs 0.02 0.00 - 0.04 x10(3)/[facility] LABORATORY Specimen Anatomical Collection Method Collection Time Receive d Time (Source) Location / / Volume Laterality Blood specimen 03/23/2019 3:52 AM 019 3:52 (specimen) EDT AM EDT Resulting Agency Comment Spec In Lab Frances Crawford MD HEMATOLOGY ORDERABLES Performing Organization Address City/State/ZIP [place] [address] (ABNORMAL) Hemogram (03/23/2019 3:52 AM EDT) Analysis Performed At Patho logist Time Signature WBC 6.8 4.0 - 9.[address] [facility] x10(3)/[facility] LABORATORY RBC 2.31 (L) 4.00 - [facility] 5.21 [facility] x10(6)/[facility] LABORATORY Hemoglobin 6.7 (L) 11.7 - [facility] 15.5 gm/dL [facility] Hematocrit 18.8 (L) 35.7 - [facility] 45.8 % [facility] MCV 81.4 (L) 82.6 - [facility] 94.4 fL [facility] MCH 29.0 27.1 - [facility] 32.0 pg [facility] MCHC 35.6 (H) 31.7 - [facility] 35.0 gm/dL [facility] Platelets 105 (L) 145 - 357 [place]ERE[facility] MCKEON x10(3)/[facility] LABORATORY RDWSD 45.7 37.0 - DEREJE MCKEON 46.0 [facility] LABORATORY RDWCV 15.4 (H) 11.5 - DEREJE MCKEON 14.1 % [facility] MPV 10.4 7.6 - 12.9 DEREJE MCKEON [facility] LABORATORY nRBC % Auto 0.0 % [facility] nRBC Abs Auto 0.000 0.000 - DEREJE MCKE[place] 0.000 [facility] x10(3)/[facility] LABORATORY Specimen Anatomical Collection Method Collection Time Receive d Time (Source) Location / / Volume Laterality Blood specimen 03/23/2019 3:52 AM 3:52 (specimen) EDT AM EDT Resulting Agency Comment Spec In Lab Frances Crawford MD HEMATOLOGY ORDERABLES Performing Organization Address City/[facility]/ZIP Code Phon e Number [address] Lactate, whole blood, send to lab ([facility]) (03/23/2019 3:52 AM EDT) athologist Signature Lactate WB 1.4 0.5 - 2.2 [facility] mmol/L [facility] Specimen Anatomical Collection Method Collection Time Receive d Time (Source) Location / / Volume Laterality Blood specimen 03/23/2019 3:52 AM 3:52 (specimen) EDT AM EDT Resulting Agency Comment Spec In Lab Bin Encinas MD CHEMISTRY ORDERABLES Performing Organization Address City/[facility]/ZIP Code Phon e Number [address] Troponin (03/23/2019 3:52 AM EDT) P athologist Signature Troponin-T <0.01 0.00 - 0.00 [facility] ng/mL [facility] Comment: The 99th percentile for Troponin T is le ss than 0.01 ng/mL, any detectable cTnT concentration using this assay should be considered elevated. According to the third universal definit ion of myocardial infarction the following criteria with a clinical prese ntation consistent with acute myocardial ischemia meets the diagnosis for a myocardial infarction (MO). Detection of a rise and/or fall of [...] additional sample may be indicated. Reference: Third Ripley Definition of Myocardial Infarction. Journal of the [place] [employer] 2012;60:1581-98 Specimen Anatomical Collection Method Collection Time Receive d Time (Source) Location / / Volume Laterality Blood specimen 03/23/2019 3:52 AM 019 3:52 (specimen) EDT AM EDT Resulting Agency Comment Spec In Lab Bin Encinas MD CHEMISTRY ORDERABLES Performing Organization Address City/State/ZIP [place] [address] (ABNORMAL) Basic Metabolic Panel (non-fasting) (03/23/2019 3:52 AM EDT) P athologist Signature Glucose Lvl 122 65 - [address] [facility] mg/dL [facility] Comment: Diabetes: >=200 mg/dL plus symp toms BUN 10 8 - 18 mg/dL [facility] Creatinine 0.54 (L) 0.70 - 1.20 mg/dL [facility] Sodium 142 135 - 145 mmol/L [facility] Potassium 4.5 3.5 - 5.0 mmol/L [facility] Comment: Please note: ??Patients with WBC >100,00 0 may have falsely elevated Potassium levels. ??For accurate Potassium quantif ication in these patients send serum separator tube (gold top) for subsequent determinations. ??Contact the Clinical Chemistry Laboratory if there are any qu estions. Chloride 111 (H) 98 - 107 mmol/L [facility] CO2 22 22 - 31 mmol/L [facility] Anion Gap 9 5 - 15 mmol/L [facility]ORY Calcium 6.8 (Critical) 8.5 - 10.5 mg/dL [facility] Comment: Called by: MARIA LUISA, Read back by: German OKEEFE, Date/Time:03/23/19 05:05. Estimated GFR 117 >=60 mL/min/1.73 m?? [facility] Comment: The eGFR was calculated using the CKD-EP I equation. As with all creatinine based estimates of kidney function, eGFR values calculated with the CKD-EPI equation are not accurate in patients wi th acute kidney failure, extremes of body mass or the acutely ill. http://Avuxi/[facility]ON[facility] eGFR 136 >=60 mL/min/1.73 m?? [facility] Comment: The eGFR was calculated using the CKD-EP I equation. As with all creatinine based estimates of kidney function, eGFR values calculated with the CKD-EPI equation are not accurate in patients wi th acute kidney failure, extremes of body mass or the acutely ill. http://[email or web address] Specimen Anatomical Collection Method Collection Time Receive d Time (Source) Location / / Volume Laterality Blood specimen 03/23/2019 3:52 AM 019 3:52 (specimen) EDT AM EDT Resulting Agency Comment Spec In Lab Bin Encinas MD CHEMISTRY ORDERABLES Performing Organization Address City/[facility] [place] [address] XR Fluoro No Rad [...] Phon e Number DH RAD DH RAD [place] (ABNORMAL) Fibrinogen (03/23/2019 1:30 AM EDT) athologist Signature Fibrinogen 152 (L) 200 - 393 [facility] mg/dL [facility] Comment: A fibrinogen level >100 [...] Organization Address City/[facility]/ZIP [place] [address] Prepare RBC (03/23/2019 1:30 AM EDT) athologist [facility] Dispensed? Yes [facility] Specimen Anatomical Collection Method Collection Time Receive d Time (Source) Location / / Volume Laterality Blood specimen 03/23/2019 1:30 AM 019 1:27 (specimen) EDT AM EDT Bin Encinas MD BLOOD BANK ORDERABLES Performing Organization Address City/[facility]/ZIP [facility] [place] [address] Troponin (03/22/2019 11:00 PM EDT) athologist [facility] Troponin-T <0.01 0.00 - 0.[address] [facility] ng/mL [facility] Comment: The 99th percentile for Troponin T is le ss than 0.01 ng/mL, any detectable cTnT concentration using this assay should be considered elevated. According to the third universal definit ion of myocardial infarction the following criteria with a clinical prese ntation consistent with acute myocardial ischemia meets the diagnosis for a myocardial infarction (MO). Detection of a rise and/or fall of [...] additional sample may be indicated. Reference: Third Ripley Definition of Myocardial Infarction. Journal of the [place] [employer] 2012;60:1581-98 Specimen Anatomical Collection Method Collection Time Receive d Time (Source) Location / / Volume Laterality Blood specimen 03/22/2019 11:00 9 (specimen) PM EDT 11:12 PM EDT Resulting Agency Comment Spec In Lab Bin Encinas MD CHEMISTRY ORDERABLES Performing Organization Address City/State/ZIP [place] [address] (ABNORMAL) Hemogram (03/22/2019 11:00 PM EDT) athologist Signature WBC 7.4 4.0 - 9.[address] [facility] x10(3)/[facility] LABORATORY RBC 2.80 (L) 4.00 - [facility] 5.21 [facility] x10(6)/[facility] LABORATORY Hemoglobin 8.1 (L) 11.7 - [facility] 15.5 gm/dL [facility] Comment: This result has been called to RAMIREZ KAPLAN by KOTA BARKER on 03 22 2019 at 2324, and has been read back. Hematocrit 23.8 (L) 35.7 - 45.8 % [facility] MCV 85.0 82.6 - 94.4 fL [facility] MCH 28.9 27.1 - 32.0 pg [facility] MCHC 34.0 31.7 - 35.0 gm/dL [facility] LABORATORY Platelets 120 (L) 145 - 357 x10(3)/[facility] LABORATORY Comment: Patient Transfused. RDWSD 47.2 (H) 37.0 - 46.0 fL [facility] RDWCV 15.3 (H) 11.5 - 14.1 % [facility] LABORATORY MPV 10.3 7.6 - 12.9 fL [facility] LABORATORY nRBC % Auto 0.0 % [facility] nRBC Abs Auto 0.000 0.000 - 0.000 x10(3)/[facility] LABORATORY Specimen Anatomical Collection Method Collection Time Receive d Time (Source) Location / / Volume Laterality Blood specimen 03/22/2019 11:00 9 (specimen) PM EDT 11:12 PM EDT Resulting Agency Comment Spec In Lab Sunshine Moncada MD HEMATOLOGY ORDERABLES Performing Organization Address City/[facility]/[place] [address] APTT (03/22/2019 11:00 PM EDT) P athologist Signature PTT 28 25 - 37 sec [facility] Comment: The PTT is NOT [...] Organization Address City/State/ZIP Code Phon e Number [place], [place] [address] (ABNORMAL) Prothrombin Time (03/22/2019 11:00 PM EDT) P athologist Signature PT 14.8 (H) 9.4 - 12.5 [facility] LABORATORY INR 1.3 [facility] Comment: An INR <2.0 indicates [...] Organization Address City/[facility]/ZIP Code Phon e Number [address] POCT Glucose (03/22/2019 10:59 PM EDT) P athologist Signature POC Glucose 139 65 - [address] [facility] mg/dL [facility] Comment: Supplemental ranges: <140 mg/dL before meals <180 mg/dL all other times of the day Specimen Anatomical Collection Method Collection Time Receive d Time (Source) Location / / Volume Laterality Blood specimen 03/22/2019 10:59 9 (specimen) PM EDT 10:59 PM EDT Bin Encinas MD POINT OF CARE TEST ORDERABLE S Performing Organization Address City/[facility]/[place] [address] Prepare thawed plasma (03/22/2019 10:35 PM EDT) P athologist Signature Dispensed? Yes [facility] LABORATORY Specimen Anatomical Collection Method Collection Time Receive d Time (Source) Location / / Volume Laterality Blood specimen 03/22/2019 10:35 9 (specimen) PM EDT 10:36 PM EDT Bin Encinas MD BLOOD BANK ORDERABLES Performing Organization Address City/[facility]/[place] [address] Transfuse 1 unit platelets, [...] TREATMENT ORDERABLES - BLOOD ADMIN urine, qualitative ([place]/CGP) (03/22/2019 9:18 PM EDT) Analysis Performed At Patho logist Time Signature Spec [place] 1.020 1.002 - [facility] UA 1.030 [facility] HCG Qual Negative [facility] Specimen Anatomical Collection Method Collection Time Receive d Time (Source) Location / / Volume Laterality Urine specimen 03/22/2019 9:18 PM 019 (specimen) EDT 10:01 PM EDT Resulting Agency Comment Spec In Lab Bin Encinas MD URINE ORDERABLES Performing Organization Address City/State/ZIP [place] [address] XR Knee 1-2 Views [...] Signature PTT 30 25 - 37 sec [facility] Comment: The PTT is NOT [...] Organization Address City/State/ZIP [place] [address] (ABNORMAL) Prothrombin Time (03/22/2019 9:00 PM EDT) athologist Signature PT 16.6 (H) 9.4 - 12.5 [facility] LABORATORY INR 1.4 [facility] Comment: An INR <2.0 indicates [...] Organization Address City/[facility] [place] [address] Film Library- Storage Only DX Ankle (03/22/2019 8:19 PM EDT) Specimen (Source) Anatomical Location Collection Method / Collectio n Time Received Time / Laterality Volume Narrative RAD - 03/22/2019 8:19 PM EDT This exam is auto-finalizing. It's purpo se is for storage only. Bin Encinas MD IMG FILM LIBRARY ORDERABLES Performing Organization Address City/[facility] Phon e Number [place], [place] Request For 2nd Read CT Spine [...] ? Electronically signed by: Maurilio Mena MD, [facility] ([phone]), at 03/22/2019 9:06 PM Narrative 03/22/2019 9:06 [...] number below. Electronically signed by: Maurilio Mena MD, [facility] ([phone]), at 03/22/2019 9:06 PM Bin Encinas MD IMG OUTSIDE INTERPRETATION O SHAYY Request For 2nd Read CT Chest Abdomen [...] Omnipaque 350 was used. Study performed at [facility] at 1240 hours, March 22, [...] the left upper quadrant (series7, image [phone]) which tracks to the posterior left lower [...] Omnipaque 350 was used. Study performed at [facility] at 1240 hours, March 22, [...] Bin Encinas MD IMG OUTSIDE INTERPRETATION O CHELSEAERAJADEN Request For 2nd Read CT Head And [...] ? Electronically signed by: Maurilio Mena MD, [facility] ([phone]), at 03/22/2019 8:03 PM Narrative 03/22/2019 8:03 PM EDT EXAMINATION: REQUEST [...] e number below. ? Electronically signed by: Yesenia Dubois [facility] ([phone]), at 03/22/2019 9:17 PM Narrative 03/22/2019 9:17 PM EDT EXAMINATION: XR [...] is better visualized on ankle radiographs from [facility] today. No additional fracture [...] For questions regarding this report, please contact [facility] number below. Electronically signed by: Yesenia Dubois [facility] ([phone]), at 03/22/2019 9:17 PM Bin Encinas MD IMG DX ORDERABLES XR [...] is better visualized on ankle radiographs from [facility] today. No additional fracture [...] contact e number below. Electronically signed by: Yesenia Dubois [facility] ([phone]), at 03/22/2019 9:17 PM Bin Encinas MD IMG DX ORDERABLES XR [...] e number below. ? Electronically signed by: Yesenia Dubois [facility] ([phone]), at 03/22/2019 8:03 PM Narrative 03/22/2019 8:03 PM EDT EXAMINATION: XR [...] ABORH Recheck Status (03/22/2019 7:30 PM EDT) [facility] Method Time Signature ABORH Recheck Order Placed [facility] LABORATORY ABORH Type Complete [facility] LABORATORY Specimen Anatomical Collection Method Collection Time Receive d Time (Source) Location / / Volume Laterality Blood specimen 03/22/2019 7:30 PM 019 8:03 (specimen) EDT PM EDT Resulting Agency Comment Spec In Lab Yesica Burroughs MD BLOOD BANK ORDERABLES Performing Organization Address City/[facility]/[place] [address] Antibody screen (03/22/2019 7:30 PM EDT) Patholo gist Method Time Signature Ab Screen Negative [facility] LABORATORY Expires at 03/25/2019 DEREJE MCKEON [id number] on: [facility] Comment: Corrected from 03/22/19 0:00:00 EDT [Unk nown] on 03/23/19 13:52:12 EDT by Lizett Cordoba. Specimen Anatomical Collection Method Collection Time Receive d Time (Source) Location / / Volume Laterality Blood specimen 03/22/2019 7:30 PM 8:03 (specimen) EDT PM EDT Resulting Agency Comment Spec In Lab Yesica Burroughs MD BLOOD BANK ORDERABLES Performing Organization Address City/[facility]/[place] [address] ABO/Rh Typing (03/22/2019 7:30 PM EDT) P athologist Signature ABORh Type A Pos [facility] LABOR[facility]ORY Specimen Anatomical Collection Method Collection Time Receive d Time (Source) Location / / Volume Laterality Blood specimen 03/22/2019 7:30 PM 019 8:03 (specimen) EDT PM EDT Resulting Agency Comment Spec In Lab Yesica Burroughs MD BLOOD BANK ORDERABLES Performing Organization Address City/[facility]/ZIP Code Phon e Number [address] Prepare RBC (03/22/2019 7:30 PM EDT) P athologist Signature Dispensed? Yes [facility] Specimen Anatomical Collection Method Collection Time Receive d Time (Source) Location / / Volume Laterality Blood specimen 03/22/2019 7:30 PM 7:28 (specimen) EDT PM EDT Bin Encinas MD BLOOD BANK ORDERABLES Performing Organization Address City/State/[place] [address] Prepare Platelets, Apheresis (03/22/2019 7:25 PM EDT) P athologist Signature Dispensed? Yes [facility] Specimen Anatomical Collection Method Collection Time Receive d Time (Source) Location / / Volume Laterality Blood specimen 03/22/2019 7:25 PM 019 7:21 (specimen) EDT PM EDT Bin Encinas MD BLOOD BANK ORDERABLES Performing Organization Address City/State/ZIP Code Phon e Number [address] Prepare thawed plasma (03/22/2019 7:15 PM EDT) P athologist Signature Dispensed? No [facility] Specimen Anatomical Collection Method Collection Time Receive d Time (Source) Location / / Volume Laterality Blood specimen 03/22/2019 7:15 PM 019 7:20 (specimen) EDT PM EDT Bin Encinas MD BLOOD BANK ORDERABLES Performing Organization Address City/State/ZIP Code Phon e Number [address] Prepare RBC (03/22/2019 5:59 PM EDT) P athologist Signature Dispensed? Yes [facility] Specimen Anatomical Collection Method Collection Time Receive d Time (Source) Location / / Volume Laterality Blood specimen No Charge / 03/22/2019 5:59 PM 019 5:59 (specimen) Unknown EDT PM EDT Resulting Agency Comment Spec In Lab Bin Encinas MD BLOOD BANK ORDERABLES Performing Organization Address City/State/[place] [address] POCT Glucose (03/22/2019 5:51 PM EDT) P athologist Signature POC Glucose 151 65 - [address] [facility] mg/dL [facility] Comment: Supplemental ranges: <140 mg/dL before meals <180 mg/dL all other times of the day Specimen Anatomical Collection Method Collection Time Receive d Time (Source) Location / / Volume Laterality Blood specimen 03/22/2019 5:51 PM 019 5:51 (specimen) EDT PM EDT Bin Encinas MD POINT OF CARE TEST ORDERABLE S Performing Organization Address City/[facility]/ZIP [place] [address] Troponin (03/22/2019 5:49 PM EDT) P athologist Signature Troponin-T <0.01 0.00 - 0.[address] [facility] ng/mL [facility] Comment: The 99th percentile for Troponin T is le ss than 0.01 ng/mL, any detectable cTnT concentration using this assay should be considered elevated. According to the third universal definit ion of myocardial infarction the following criteria with a clinical prese ntation consistent with acute myocardial ischemia meets the diagnosis for a myocardial infarction (MO). Detection of a rise and/or fall of [...] additional sample may be indicated. Reference: Third Ripley Definition of Myocardial Infarction. Journal of the [place] [employer] 2012;60:1581-98 Specimen Anatomical Collection Method Collection Time Receive d Time (Source) Location / / Volume Laterality Blood specimen Venous Draw / 03/22/2019 5:49 PM 2018 6:30 (specimen) Unknown EDT PM EDT Resulting Agency Comment Spec In Lab Clarita Sher MD CHEMISTRY ORDERABLES Performing Organization Address City/[facility]/Z[place] [address] (ABNORMAL) Differential, Automated (03/22/2019 5:49 PM EDT) [facility] Method Time Signature Neutrophils % 81.3 % [facility] Neutr Abs (ANC) 7.31 (H) 1.70 - [facility] 6.10 [facility] x10(3)/[facility] L LABORATORY Lymphocytes % 6.1 % [facility] Lymphocytes Abs 0.6 (L) 0.9 - 3.[address] [facility] x10(3)/[facility] LABORATORY Monocytes % 12.1 % [facility]OR[facility]ORY Monocyte Abs 1.1 (H) 0.3 - 0.[address] [facility] x10(3)/[facility] LABORATORY Eosinophils % 0.1 % [facility]OR[facility]ORY Eosinophils Abs 0.0 0.0 - 0.[address] [facility] x10(3)/[facility] LABORATORY Basophils % 0.1 % [facility]OR[facility]ORY Basophils Abs 0.0 0.0 - 0.[address] [facility] x10(3)/[facility] LABORATORY Immature Gran % 0.30 % [facility] Comment: Immature granulocytes(IG's)percentage an d absolute count will include metamyelocytes, myelocytes, and promyelo cytes. Blood smears from CBCs yielding IG's will be scanned manually for concor dance. If this scan disagrees with the automated IG or if promyelocytes are not ed, a manual differential will be performed. Jennifer Gran Abs 0.03 0.00 - 0.04 x10(3)/mcL [facility] LABORATORY Specimen Anatomical Collection Method Collection Time Receive d Time (Source) Location / / Volume Laterality Blood specimen 03/22/2019 5:49 PM 019 6:11 (specimen) EDT PM EDT Resulting Agency Comment Spec In Lab Siobhan Fuller MD HEMATOLOGY ORDERABLES Performing Organization Address City/State/ZIP [place] [address] (ABNORMAL) Hemogram (03/22/2019 5:49 PM EDT) Analysis Performed At [facility] logist Time Signature WBC 9.0 4.0 - 9.[address] [facility] x[facility](3[facility] LABORATORY RBC 4.35 4.00 - DEREJE PAL[place]OCK 5.21 [facility] x10(6)/[facility] LABORATORY Hemoglobin 12.2 11.7 - [facility] 15.5 gm/dL [facility] Hematocrit 35.8 35.7 - [facility] 45.8 % [facility] MCV 82.3 (L) 82.6 - [facility] 94.4 [facility] LABORATORY MCH 28.0 27.1 - [facility] 32.0 pg [facility] MCHC 34.1 31.7 - [facility] 35.0 gm/dL [facility] Platelets 55 (L) 145 - [address] [facility] x10(3)/[facility] LABORATORY RDWSD 47.7 (H) 37.0 - [facility] 46.0 [facility] LABORATORY RDWCV 15.9 (H) 11.5 - [facility] 14.1 % [facility] MPV 12.0 7.6 - 12.9 [facility] LABORATORY nRBC % Auto 0.0 % [facility] LABORATORY nRBC Abs Auto 0.000 0.000 - [facility] 0.000 [facility] x10(3)/[facility] LABORATORY Specimen Anatomical Collection Method Collection Time Receive d Time (Source) Location / / Volume Laterality Blood specimen 03/22/2019 5:49 PM 019 6:11 (specimen) EDT PM EDT Resulting Agency Comment Spec In Lab Siobhan Fuller MD HEMATOLOGY ORDERABLES Performing Organization Address City/State/ZIP Code Phon e Number [place] [address] (ABNORMAL) D-Dimer, Quantitative (03/22/2019 5:49 PM EDT) [facility] gist Method Time Signature D-Dimer, Quant 6,738 (H) 0 - [address] [facility] FEU ng/ml [facility] Comment: The D-Dimer assay is [...] Encinas MD HEMATOLOGY ORDERABLES Performing Organization Address [facility] [place] [address] Haptoglobin (03/22/2019 5:49 PM EDT) athologist Signature Haptoglobin Not Perf 30 - 200 DEREJE MIKE mg/dL [facility] Comment: Unable to quantitate due [...] Encinas MD CHEMISTRY ORDERABLES Performing Organization Address [facility] [place] [address] (ABNORMAL) Fibrinogen (03/22/2019 5:49 PM EDT) P athologist Signature Fibrinogen 176 (L) 200 - 393 DEREJE MIKE mg/dL [facility] Comment: A fibrinogen level >100 [...] Organization Address City/State/ZIP Code Phon e Number [address] Lipase (03/22/2019 5:49 PM EDT) P athologist Signature Lipase 39 0 - [address] [facility] unit/L [facility] Specimen Anatomical Collection Method Collection Time Receive d Time (Source) Location / / Volume Laterality Blood specimen 03/22/2019 5:49 PM 019 6:11 (specimen) EDT PM EDT Resulting Agency Comment Spec In Lab Bin Encinas MD CHEMISTRY ORDERABLES Performing Organization Address City/[facility]/[place] [address] (ABNORMAL) Hepatic Function Panel (03/22/2019 5:49 PM EDT) Analysis Performed At Patho logist Time Signature Total Protein 4.5 (L) 6.1 - 8.[address] [facility] gm/dL [facility] Albumin 2.7 (L) 3.2 - 5.[address] [facility] gm/dL [facility] AST Not Perf 0 - 30 [facility] Comment: Unable to quantitate due to sample hemol ysis. ??Sample redraw suggested. Called by: brant , Read back by: Caitlin Tapia rd, Date/Time:03/22/19 19:08. ALT 38 (H) 0 - 30 unit/L [facility] LABORATORY Alk Phos 36 35 - 105 unit/L [facility] Total Bilirubin 0.9 0.2 - 1.3 mg/dL [facility] LABORATORY Bili, Direct 0.2 0.0 - 0.3 mg/dL [facility] LABORATORY Specimen Anatomical Collection Method Collection Time Receive d Time (Source) Location / / Volume Laterality Blood specimen 03/22/2019 5:49 PM 019 6:11 (specimen) EDT PM EDT Resulting Agency Comment Spec In Lab Bin Encinas MD CHEMISTRY ORDERABLES Performing Organization Address City/State/ZIP [place] [address] (ABNORMAL) Basic Metabolic Panel (non-fasting) (03/22/2019 5:49 PM EDT) P athologist Signature Glucose Lvl 155 65 - [address] [facility] mg/dL [facility] Comment: Diabetes: >=200 mg/dL plus symp toms BUN 11 8 - 18 mg/dL [facility] Creatinine 0.56 (L) 0.70 - 1.20 mg/dL [facility] Sodium 141 135 - 145 mmol/L [facility] Potassium 4.1 3.5 - 5.0 mmol/L [facility] Comment: Please note: ??Patients with WBC >100,00 0 may have falsely elevated Potassium levels. ??For accurate Potassium quantif ication in these patients send serum separator tube (gold top) for subsequent determinations. ??Contact the Clinical Chemistry Laboratory if there are any qu estions. Chloride 111 (H) 98 - 107 mmol/L [facility] CO2 19 (L) 22 - 31 mmol/L [facility] Anion Gap 11 5 - 15 mmol/L [facility] LABORATORY Calcium 8.4 (L) 8.5 - 10.5 mg/dL [facility] Estimated GFR 116 >=60 mL/min/1.73 m?? [facility] Comment: The eGFR was calculated using the CKD-EP I equation. As with all creatinine based estimates of kidney function, eGFR values calculated with the CKD-EPI equation are not accurate in patients wi th acute kidney failure, extremes of body mass or the acutely ill. http://Avuxi/DHnkf eGFR 134 >=60 mL/min/1.73 m?? [facility] Comment: The eGFR was calculated using the CKD-EP I equation. As with all creatinine based estimates of kidney function, eGFR values calculated with the CKD-EPI equation are not accurate in patients wi th acute kidney failure, extremes of body mass or the acutely ill. http://MPV.Swiftype/DHMCnkf Specimen Anatomical Collection Method Collection Time Receive d Time (Source) Location / / Volume Laterality Blood specimen 03/22/2019 5:49 PM 019 6:11 (specimen) EDT PM EDT Resulting Agency Comment Spec In Lab Bin Encinas MD CHEMISTRY ORDERABLES Performing Organization Address City/[facility]/[place] [address] APTT (03/22/2019 5:49 PM EDT) P athologist Signature PTT 26 25 - 37 sec [facility] Comment: The PTT is NOT [...] Organization Address City/[facility] [place] [address] (ABNORMAL) Prothrombin Time (03/22/2019 5:49 PM EDT) P athologist Signature PT 13.1 (H) 9.4 - 12.5 [facility] LABORATORY INR 1.1 [facility] Comment: An INR <2.0 indicates [...] Organization Address City/State/ZIP [place] [address] documented in this encounter [...] Oral, 2 TIMES DAILY, First dose on 03/22/19 at 2100, Until Discontinued, Swab oral cavity. [...] 0127 (See Alternative - Provider: Taty Durand, RN)0910 (See Alternative - Provider: Aleksandra Miller, RN) 1,000 mg, Oral, EVERY 8 HOURS [...] (See Alternative - Provider: Aleksandra Miller, TAZ) 975 mg, Rectal, EVERY 8 HOURS SCHEDULED, First dose on Fri03/22/19 at 1730, Until Discontinued, Maximum dose of acetaminophen is 4000 mg from all sources in 24 hours., Routine acetaminophen (TYLENOL) tablet 1,000 mg(Linked Group 1 ) 0124 (Given - Provider: Ramirez Ortiz RN)0906 (Given - Provider: Kristin Hutson RN)1706 (Given - Provider: Kristin Hutson RN) 0110 (Given - Provider: Hoa Simeon)0904 (Given - Provider: Kristin Hutson RN)1706 (Given - Provider: Kristin Hutson RN) 0127 (Given - Provider: Taty Durand , TAZ)0910 (Given - Provider: Aleksandra Miller, TAZ) 1,000 mg, [...] refused)2025 (Given - Provider: Taty Durand, TAZ) 0910 (Given - Provider: Aleksandra sweeney RN) [...] Hutson RN) 0110 (Given - Provider: Hoa Simeon)0904 (Given - Provider: Kristin Hutson RN)1706 (Given - Provider: Kristin Hutson RN) 0127 (Given - Provider: Taty Durand , TAZ)0910 (Given - Provider: Aleksandra Miller, TAZ) 5,000 Units, Subcutaneous, EVERY 8 HOURS SCHEDULED, First dose on Fri03/26/19 at 1400, Until Discontinued, Routine potassium chloride (K-DUR/KLOR-CON) extended release t ablet 40 mEq (COMPLETED) 2049 (Given - Provider: Ramirez Ortiz, RN) 903 (Given - Provider: Kristin Hutson, TAZ) 40 mEq, Oral, 2 TIMES DAILY, 2 doses, Fi rst dose on Fri03/29/19 at 2100, Last dose on Fri03/30/19 at 0900, 20 mEq tablet may be dissolved in water for administration, Routine senna-docusate (PERICOLACE) 8.6-50 mg per tablet 2 tab let 900 (Not Given - Provider: Kristin Hutson, TAZ - Reason: Patient/family refused)2099 (Not Given - Provider: Ramirez Ortiz RN - Reason: See comment - Comment: having loose stools) 851 (Not Given - Provider: Kristin irving RN - Reason: Patient/family refused)2025 (Given - Provider: Taty Durand, TAZ) 908 (Given - Provider: Aleksandra Miller RN) 2 [...] mg, Oral, 2 TIMES DAILY PRN, Starting Fri03/22/19 at 1700, Until Fri03/31/19 at 1634, [...] 4 mg 0126 (Given - Provider: Ramirez Ortiz RN) 0915 (Given - Provider: Kristin Hutson [...]
Routine documented in this encounter Care Teams Color Weigher Relationship Specialty Start Date End Date None PCP - General 03/22/19 11/11/19 None documented as of this encounter
--- OUTSIDE RECORDS SUMMARY | 2022-01-02 11:09 | XMS_ITS | Encounter Summary ---
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 manual differential will be performed. Jennifer Gran Abs 0.85 (H) 0.00 - 0.04 x10(3)/[facility] LABORATORY Specimen Anatomical Collection Method Collection Time Receive d Time (Source) Location / / Volume Laterality Blood specimen 03/29/2019 1:52 PM 019 1:58 (specimen) EDT PM EDT Resulting Agency Comment Spec In Lab Joseluis Ackerman MD HEMATOLOGY ORDERABLES Performing Organization Address City/State/ZIP [place] [address] (ABNORMAL) Hemogram (03/29/2019 1:52 PM EDT) Analysis Performed At Patho logist Time Signature WBC 10.4 (H) 4.0 - 9.5 [facility] x10(3)/[facility] LABORATORY RBC 2.80 (L) 4.00 - [facility] 5.21 [facility] x10(6)/[facility] LABORATORY Hemoglobin 8.0 (L) 11.7 - [facility] 15.5 gm/dL [facility] LABORATORY Hematocrit 25.2 (L) 35.7 - [facility] 45.8 % [facility] LAB[facility]ATORY MCV 90.0 82.6 - [facility] fL [facility] LABORATORY MCH 28.6 27.1 - [facility] [place] 32.0 pg [facility] LABORATORY MCHC 31.7 31.7 - [facility] [place] 35.0 gm/dL [facility] LABORATORY Platelets 365 (H) 145 - 357 [facility] x10(3)/[facility] LABORATORY RDWSD 53.3 (H) 37.0 - [facility] [place] 46.0 [facility] LABORATORY RDWCV 17.8 (H) 11.5 - [facility] 14.1 % [facility] LABORATORY MPV 9.3 7.6 - 12.9 [facility] LABORATORY nRBC % Auto 0.0 % [facility] LABORATORY nRBC Abs Auto 0.000 0.000 - [facility] x10(3)/[facility] LABORATORY Specimen Anatomical Collection Method Collection Time Receive d Time (Source) Location / / Volume Laterality Blood specimen 03/29/2019 1:52 PM 019 1:58 (specimen) EDT PM EDT Resulting Agency Comment Spec In Lab Joseluis Ackerman MD HEMATOLOGY ORDERABLES Performing Organization Address City/State/ZIP [place] [address] (ABNORMAL) Basic Metabolic Panel (non-fasting) (03/29/2019 1:52 PM EDT) P athologist Signature Glucose Lvl 98 65 - 199 [facility] mg/dL [facility] LABORATORY Comment: Diabetes: >=200 mg/dL plus symp toms BUN 4 (L) 8 - 18 mg/dL [facility] LABORATORY Creatinine 0.40 (L) 0.70 - 1.20 mg/dL [facility] LABORATORY Sodium 139 135 - 145 mmol/L [facility] LABORATORY Potassium 3.2 (L) 3.5 - 5.0 mmol/L [facility] LABORATORY Comment: Please note: ??Patients with WBC >100,00 0 may have falsely elevated Potassium levels. ??For accurate Potassium quantif ication in these patients send serum separator tube (gold top) for subsequent determinations. ??Contact the Clinical Chemistry Laboratory if there are any qu estions. Chloride 101 98 - 107 mmol/L [facility] LABORATORY CO2 25 22 - 31 mmol/L [facility] LABORATORY Anion Gap 13 5 - 15 mmol/L [facility] LABORATORY Calcium 8.2 (L) 8.5 - 10.5 mg/dL [facility] LABORATORY Estimated GFR 129 >=60 mL/min/1.73 m?? [facility] LABORATORY Comment: The eGFR was calculated using the CKD-EP I equation. As with all creatinine based estimates of kidney function, eGFR values calculated with the CKD-EPI equation are not accurate in patients wi th acute kidney failure, extremes of body mass or the acutely ill. [email or web address]/[facility] CITY[facility]f eGFR 150 >=60 mL/min/1.73 m?? [facility] LABORATORY Comment: The eGFR was calculated using the CKD-EP I equation. As with all creatinine based estimates of kidney function, eGFR values calculated with the CKD-EPI equation are not accurate in patients wi th acute kidney failure, extremes of body mass or the acutely ill. [email or web address]/[facility] CITYnkf Specimen Anatomical Collection Method Collection Time Receive d Time (Source) Location / / Volume Laterality Blood specimen 03/29/2019 1:52 PM 019 1:58 (specimen) EDT PM EDT Resulting Agency Comment Spec In Lab Bin Encinas MD CHEMISTRY ORDERABLES Performing Organization Address City/State/ZIP [place] [address] (ABNORMAL) Differential, Automated (03/28/2019 8:27 AM EDT) [facility] gist Method Time Signature Neutrophils % 64.4 % [facility] LABORATORY Neutr Abs (ANC) 7.55 (H) 1.70 - [facility] 6.10 [facility] x10(3)/[facility] LABORATORY Lymphocytes % 15.0 % [facility] LABORATORY Lymphocytes Abs 1.8 0.9 - 3.2 [facility] x10(3)/[facility] LABORATORY Monocytes % 9.0 % [facility] LABORATORY Monocyte Abs 1.1 (H) 0.3 - 0.9 [facility] x10(3)/[facility] LABORATORY Eosinophils % 6.2 % [facility] LABORATORY Eosinophils Abs 0.7 (H) 0.0 - 0.4 [facility] x10(3)/[facility] LABORATORY Basophils % 0.7 % [facility] LABORATORY Basophils Abs 0.1 0.0 - 0.1 [facility] x10(3)/[facility] LABORATORY Immature Gran % 4.70 % [facility] LABORATORY Comment: Immature granulocytes(IG's)percentage an d absolute count will include metamyelocytes, myelocytes, and promyelo cytes. Blood smears from CBCs yielding IG's will be scanned manually for concor dance. If this scan disagrees with the automated IG or if promyelocytes are not ed, a manual differential will be performed. Jennifer Gran Abs 0.55 (H) 0.00 - 0.04 x10(3)/[facility] LABORATORY Specimen Anatomical Collection Method Collection Time Receive d Time (Source) Location / / Volume Laterality Blood specimen 03/28/2019 8:27 AM 019 8:32 (specimen) EDT AM EDT Resulting Agency Comment Spec In Lab Becca Awan [employer] HEMATOLOGY ORDERABLES Performing Organization Address City/State/ZIP [place] [address] (ABNORMAL) Hemogram (03/28/2019 8:27 AM EDT) Analysis Performed At Patho logist Time Signature WBC 11.7 (H) 4.0 - 9.5 [facility] x10(3)/[facility] LABORATORY RBC 2.81 (L) 4.00 - [facility] 5[facility]21 [facility] x10(6)/[facility] LABORATORY Hemoglobin 7.9 (L) 11.7 - [facility] 15.5 gm/dL [facility] LABORATORY Hematocrit 25.3 (L) 35.7 - [facility] 45.8 % [facility] LABORATORY MCV 90.0 82.6 - [facility] 94.4 fL [facility] LABORATORY MCH 28.1 27.1 - [facility] MCHC 31.2 (L) 31.7 - [facility] 35.0 gm/dL [facility] LABORATORY Platelets 279 145 - 357 [facility] x10(3)/[facility] LABORATORY RDWSD 54.6 (H) 37.0 - [facility] MIKE 46.0 [facility] LABORATORY RDWCV 17.5 (H) 11.5 - [facility] 14.1 % [facility] LABORATORY MPV 9.7 7.6 - 12.9 [facility] LABORATORY nRBC % Auto 0.0 % [facility] LABORATORY nRBC Abs Auto 0.000 0.000 - [facility] 0.000 [facility] x10(3)/[facility] LABORATORY Specimen Anatomical Collection Method Collection Time Receive d Time (Source) Location / / Volume Laterality Blood specimen 03/28/2019 8:27 AM 019 8:32 (specimen) EDT AM EDT Resulting Agency Comment Spec In Lab Becca Awan ARTILLERY OFFICER HEMATOLOGY ORDERABLES Performing Organization Address City/State/ZIP [place] [address] (ABNORMAL) Basic Metabolic Panel (non-fasting) (03/28/2019 6:23 AM EDT) athologist Signature Glucose Lvl 90 65 - 199 [facility] mg/dL [facility] LABORATORY Comment: Diabetes: >=200 mg/dL plus symp toms BUN 9 8 - 18 mg/dL [facility] LABORATORY Creatinine 0.37 (L) 0.70 - 1.20 mg/dL [facility] LABORATORY Sodium 139 135 - 145 mmol/L [facility] LABORATORY Potassium 3.5 3.5 - 5.0 mmol/L [facility] LABORATORY Comment: Please note: ??Patients with WBC >100,00 0 may have falsely elevated Potassium levels. ??For accurate Potassium quantif ication in these patients send serum separator tube (gold top) for subsequent determinations. ??Contact the Clinical Chemistry Laboratory if there are any qu estions. Chloride 102 98 - 107 mmol/L [facility] LABORATORY CO2 26 22 - 31 mmol/L [facility] LABORATORY Anion Gap 11 5 - 15 mmol/L [facility] LABORATORY Calcium 7.8 (L) 8.5 - 10.5 mg/dL [facility] LABORATORY Estimated GFR 133 >=60 mL/min/1.73 m?? [facility] LABORATORY Comment: The eGFR was calculated using the CKD-EP I equation. As with all creatinine based estimates of kidney function, eGFR values calculated with the CKD-EPI equation are not accurate in patients wi th acute kidney failure, extremes of body mass or the acutely ill. [email or web address]/[facility] CITYnkf eGFR 154 >=60 mL/min/1.73 m?? [facility] LABORATORY Comment: The eGFR was calculated using the CKD-EP I equation. As with all creatinine based estimates of kidney function, eGFR values calculated with the CKD-EPI equation are not accurate in patients wi th acute kidney failure, extremes of body mass or the acutely ill. [email or web address]://Authorly/[facility] CITYnkf Specimen Anatomical Collection Method Collection Time Receive d Time (Source) Location / / Volume Laterality Blood specimen 03/28/2019 6:23 AM 019 6:27 (specimen) EDT AM EDT Resulting Agency Comment Spec In Lab Bin Encinas MD CHEMISTRY ORDERABLES Performing Organization Address City/Va Hospital/[place] [address] Scan, Peripheral Blood (03/27/2019 9:54 AM EDT) athologist Signature Plat Estimate Normal [facility] LABORATORY RBC Morphology Normal [facility] LABORATORY Specimen Anatomical Collection Method Collection Time Receive d Time (Source) Location / / Volume Laterality Blood specimen 03/27/2019 9:54 AM 019 (specimen) EDT 10:19 AM EDT Resulting Agency Comment Spec In Lab Nicole Dawn APRN HEMATOLOGY ORDERABLES Performing Organization Address City/[facility] Hospital/[place] [address] (ABNORMAL) Differential, Automated (03/27/2019 9:54 AM EDT) [facility] Method Time Signature Neutrophils % 67.9 % [facility] LABORATORY Neutr Abs (ANC) 8.32 (H) 1.70 - [facility] 6.10 [facility] x10(3)/[facility] LABORATORY Lymphocytes % 14.8 % [facility] LABORATORY Lymphocytes Abs 1.8 0.9 - 3.2 [facility] x10(3)/[facility] LABORATORY Monocytes % 12.8 % [facility] LABORATORY Monocyte Abs 1.6 (H) 0.3 - 0.9 [facility] x10(3)/[facility] LABORATORY Eosinophils % 2.0 % [facility] LABORATORY Eosinophils Abs 0.2 0.0 - 0.4 [facility] x10(3)/[facility] LABORATORY Basophils % 0.3 % [facility] LABORATORY Basophils Abs 0.0 0.0 - 0.1 [facility] x10(3)/[facility] LABORATORY Immature Gran % 2.20 % [facility] LABORATORY Comment: Immature granulocytes(IG's)percentage an d absolute count will include metamyelocytes, myelocytes, and promyelo cytes. Blood smears from CBCs yielding IG's will be scanned manually for concor dance. If this scan disagrees with the automated IG or if promyelocytes are not ed, a manual differential will be performed. Jennifer Gran Abs 0.27 (H) 0.00 - 0.04 x10(3)/[facility] LABORATORY Specimen Anatomical Collection Method Collection Time Receive d Time (Source) Location / / Volume Laterality Blood specimen 03/27/2019 9:54 AM 019 (specimen) EDT 10:19 AM EDT Resulting Agency Comment Spec In Lab Nicole Dawn APRN HEMATOLOGY ORDERABLES Performing Organization Address City/State/ZIP [place] [address] (ABNORMAL) Hemogram (03/27/2019 9:54 AM EDT) [facility] Method Time Signature WBC 12.3 (H) 4.0 - 9.5 [facility] x10(3)/[facility] LABORATORY RBC 3.28 (L) 4.00 - [facility] [place] 5.21 [facility] x10(6)/[facility] LABORATORY Hemoglobin 9.3 (L) 11.7 - [facility] [place] 15.5 gm/dL [facility] LABORATORY Hematocrit 28.8 (L) 35.7 - [facility] MIKE 45.8 % [facility] LABORATORY MCV 87.8 82.6 - [facility] 94.4 [facility] LABORATORY MCH 28.4 27.1 - [facility] [place] 32.0 pg [facility] LABORATORY MCHC 32.3 31.7 - [facility] 35.0 gm/dL [facility] LABORATORY Platelets 269 145 - 357 [facility] x10(3)/[facility] LABORATORY RDWSD 53.0 (H) 37.0 - [facility] 46.0 [facility] LABORATORY RDWCV 17.9 (H) 11.5 - [facility]KE 14.1 % [facility] LABORATORY MPV 10.1 7.6 - 12.9 [facility] LABORATORY nRBC % Auto 0.2 % [facility] LABORATORY nRBC Abs Auto 0.020 (H) 0.000 - [facility] MIKE 0.000 [facility] x10(3)/[facility] LABORATORY Specimen Anatomical Collection Method Collection Time Receive d Time (Source) Location / / Volume Laterality Blood specimen 03/27/2019 9:54 AM 019 (specimen) EDT 10:19 AM EDT Resulting Agency Comment Spec In Lab Nicole Dawn APRN HEMATOLOGY ORDERABLES Performing Organization Address City/State/ZIP [place] [address] (ABNORMAL) Basic Metabolic Panel (non-fasting) (03/27/2019 9:54 AM EDT) P athologist Signature Glucose Lvl 104 65 - 199 [facility] mg/dL [facility] LABORATORY Comment: Diabetes: >=200 mg/dL plus symp toms BUN 10 8 - 18 mg/dL [facility] LAB[facility] Creatinine 0.37 (L) 0.70 - 1.20 mg/dL [facility] LABORATORY Sodium 140 135 - 145 mmol/L [facility] LABORATORY Potassium 3.8 3.5 - 5.0 mmol/L [facility] LABORATORY Comment: Please note: ??Patients with WBC >100,00 0 may have falsely elevated Potassium levels. ??For accurate Potassium quantif ication in these patients send serum separator tube (gold top) for subsequent determinations. ??Contact the Clinical Chemistry Laboratory if there are any qu estions. Chloride 101 98 - 107 mmol/L [facility] LABORATORY CO2 28 22 - 31 mmol/L [facility] LABORATORY Anion Gap 11 5 - 15 mmol/L [facility] LABORATORY Calcium 8.2 (L) 8.5 - 10.5 mg/dL [facility] LABORATORY Estimated GFR 133 >=60 mL/min/1.73 m?? [facility] LABORATORY Comment: The eGFR was calculated using the CKD-EP I equation. As with all creatinine based estimates of kidney function, eGFR values calculated with the CKD-EPI equation are not accurate in patients wi th acute kidney failure, extremes of body mass or the acutely ill. [email or web address]://Authorly/[facility] CITYnkf eGFR 154 >=60 mL/min/1.73 m?? [facility] LABORATORY Comment: The eGFR was calculated using the CKD-EP I equation. As with all creatinine based estimates of kidney function, eGFR values calculated with the CKD-EPI equation are not accurate in patients wi th acute kidney failure, extremes of body mass or the acutely ill. [email or web address]://Authorly/[facility] CITYnkf Specimen Anatomical Collection Method Collection Time Receive d Time (Source) Location / / Volume Laterality Blood specimen 03/27/2019 9:54 AM 019 (specimen) EDT 10:19 AM EDT Resulting Agency Comment Spec In Lab Nicole Dawn APRN CHEMISTRY ORDERABLES Performing Organization Address City/State/ZIP [place] [address] XR Abdomen 1 view [...] ? Electronically signed by: Maurilio Mena MD, [facility] ([phone]), at 03/26/2019 10:08 PM Narrative 03/26/2019 10:08 [...] For questions regarding this report, please contact [facility]. Electronically signed by: Maurilio Mena MD, [facility] ([phone]), at 03/26/2019 10:08 PM Bin Encinas MD [...] For questions regarding this report, please contact [facility] number [facility]. Electronically signed by: LUIS Mojica [facility] ([phone]), at 03/26/2019 2:26 PM Bin Encinas MD IMG DX ORDERABLES [...] e number below. ? Electronically signed by: Brissa Gonzalez [facility] ([phone]), at 03/26/2019 2:12 PM Narrative 03/26/2019 2:12 PM EDT EXAMINATION: XR [...] contact e number below. Electronically signed by: Brissa Gonzalez [facility] ([phone]), at 03/26/2019 2:12 PM Bin Encinas MD IMG DX ORDERABLES (ABNORMAL) Differential, Automated (03/26/2019 3:17 AM EDT) [facility] Method Time Signature Neutrophils % 73.5 % [facility] LABORATORY Neutr Abs (ANC) 6.89 (H) 1.70 - [facility] 6.10 [facility] x10(3)/[facility] LABORATORY Lymphocytes % 13.6 % [facility] Lymphocytes Abs 1.3 0.9 - 3.2 [facility] LABORATORY Monocytes % 9.7 % [facility] Monocyte Abs 0.9 0.3 - 0.9 [facility](3[facility] LABORATORY Eosinophils % 1.9 % [facility] Eosinophils Abs 0.2 0.0 - 0.4 [facility] x10(3)/[facility] LABORATORY Basophils % 0.3 % [facility] Basophils Abs 0.0 0.0 - 0.1 [facility] x10(3)/[facility] LABORATORY Immature Gran % 1.00 % [facility] Comment: Immature granulocytes(IG's)percentage an d absolute count will include metamyelocytes, myelocytes, and promyelo cytes. Blood smears from CBCs yielding IG's will be scanned manually for concor dance. If this scan disagrees with the automated IG or if promyelocytes are not ed, a manual differential will be performed. Jennifer Gran Abs 0.09 (H) 0.00 - 0.04 x10(3)/[facility] LABORATORY Specimen Anatomical Collection Method Collection Time Receive d Time (Source) Location / / Volume Laterality Blood specimen 03/26/2019 3:17 AM 019 3:27 (specimen) EDT AM EDT Resulting Agency Comment Spec In Lab Joseluis Ackerman MD HEMATOLOGY ORDERABLES Performing Organization Address City/State/ZIP Code Phon e Number [place] [id number]ORY [address] (ABNORMAL) Hemogram (03/26/2019 3:17 AM EDT) Analysis Performed At Patho logist Time Signature WBC 9.4 4.0 - 9.5 [facility] x10(3)/[facility] LABORATORY RBC 2.49 (L) 4.00 - [facility] 5.21 [facility] x10(6)/[facility] LABORATORY Hemoglobin 7.1 (L) 11.7 - [facility] 15.5 gm/dL [facility] LAB[facility]ATORY Hematocrit 21.8 (L) 35.7 - [facility] 45.8 % [facility]ORY MCV 87.6 82.6 - [facility] 94.4 [facility] LABORATORY MCH 28.5 27.1 - [place] [place] 32.0 pg [facility]ATORY MCHC 32.6 31.7 - [facility] 35.0 gm/dL [facility] LAB[facility] Platelets 174 145 - 357 [facility] x10(3)/[facility] RDWSD 52.3 (H) 37.0 - [place] 46.0 [facility] LABORATORY RDWCV 16.9 (H) 11.5 - [facility] 14.1 % [facility] LABORATORY MPV 9.9 7.6 - 12.9 [facility] LABORATORY nRBC % Auto 0.0 % [facility] nRBC Abs Auto 0.000 0.000 - [facility] 0.000 [facility] x10(3)/[facility] LABORATORY Specimen Anatomical Collection Method Collection Time Receive d Time (Source) Location / / Volume Laterality Blood specimen 03/26/2019 3:17 AM 019 3:27 (specimen) EDT AM EDT Resulting Agency Comment Spec In Lab Joseluis Ackerman MD HEMATOLOGY ORDERABLES Performing Organization Address City/State/ZIP [place] [address] (ABNORMAL) Basic Metabolic Panel (non-fasting) (03/26/2019 3:17 AM EDT) P athologist Signature Glucose Lvl 104 65 - 199 [facility] mg/dL [facility] LAB[facility] Comment: Diabetes: >=200 mg/dL plus symp toms BUN 8 8 - 18 mg/dL [facility] LABORATORY Creatinine 0.48 (L) 0.70 - 1.20 mg/dL [facility] LABORATORY Sodium 142 135 - 145 mmol/L [facility] LAB[facility] Potassium 3.5 3.5 - 5.0 mmol/L [facility] Comment: Please note: ??Patients with WBC >100,00 0 may have falsely elevated Potassium levels. ??For accurate Potassium quantif ication in these patients send serum separator tube (gold top) for subsequent determinations. ??Contact the Clinical Chemistry Laboratory if there are any qu estions. Chloride 105 98 - 107 mmol/L [facility] CO2 28 22 - 31 mmol/L [facility] Anion Gap 9 5 - 15 mmol/L [facility] LABORATORY Calcium 8.0 (L) 8.5 - 10.5 mg/dL [facility] LABOR[facility] Estimated GFR 122 >=60 mL/min/1.73 m?? [facility] Comment: The eGFR was calculated using the CKD-EP I equation. As with all creatinine based estimates of kidney function, eGFR values calculated with the CKD-EPI equation are not accurate in patients wi th acute kidney failure, extremes of body mass or the acutely ill. [email or web address]/[facility] CITYnkf eGFR 141 >=60 mL/min/1.73 m?? [facility] Comment: The eGFR was calculated using the CKD-EP I equation. As with all creatinine based estimates of kidney function, eGFR values calculated with the CKD-EPI equation are not accurate in patients wi th acute kidney failure, extremes of body mass or the acutely ill. [email or web address]/[facility] [place] Specimen Anatomical Collection Method Collection Time Receive d Time (Source) Location / / Volume Laterality Blood specimen 03/26/2019 3:17 AM 3:27 (specimen) EDT AM EDT Resulting Agency Comment Spec In Lab Bin Encinas MD CHEMISTRY ORDERABLES Performing Organization Address City/[facility] [place] [address] (ABNORMAL) Hepatic Function Panel (03/26/2019 3:17 AM EDT) P athologist Signature Total Protein 5.0 (L) 6.1 - 8.0 [facility] gm/dL [facility] LAB[facility] Albumin 2.6 (L) 3.2 - 5.2 [facility] gm/dL [facility] LAB[facility] AST 33 (H) 0 - 30 [facility] [place] unit/L [facility] ALT 25 0 - 30 [facility] [place] unit/L [facility] Alk Phos 38 35 - 105 [facility] [place] unit/L [facility] LAB[facility] Total 0.3 0.2 - 1.3 [facility] [place] Bilirubin mg/dL [facility] LAB[facility] Bili, Direct 0.1 0.0 - 0.3 [facility] mg/dL [facility] LABOR[facility]ORY Specimen Anatomical Collection Method Collection Time Receive d Time (Source) Location / / Volume Laterality Blood specimen 03/26/2019 3:17 AM 019 3:27 (specimen) EDT AM EDT Resulting Agency Comment Spec In Lab Bin Encinas MD CHEMISTRY ORDERABLES Performing Organization Address City/[facility] [place] [address] XR Fluoro No Rad <1Hr - OR Use (03/25/2019 11:54 AM EDT) Specimen (Source) Anatomical Location Collection Method / Collectio n Time Received Time / Laterality Volume Narrative RAD - 03/25/2019 11:54 AM EDT This exam is auto-finalizing. No interpr etation was done. Bin Encinas MD IMG FLUORO ORDERABLES Performing Organization Address City/State/ZIP Code Phon e Number RAD RAD [place], [place] (ABNORMAL) Differential, Automated (03/25/2019 2:28 AM EDT) [facility] gist Method Time Signature Neutrophils % 70.5 % [facility] Neutr Abs (ANC) 7.74 (H) 1.70 - [facility] 6.10 [facility] x10(3)/[facility] LABORATORY Lymphocytes % 14.4 % [facility] Lymphocytes Abs 1.6 0.9 - 3.2 [facility] x10(3)/[facility] LABORATORY Monocytes % 9.4 % [facility] LABOR[facility]ORY Monocyte Abs 1.0 (H) 0.3 - 0.9 [facility] x10(3)/[facility] LABORATORY Eosinophils % 4.7 % [facility] Eosinophils Abs 0.5 (H) 0.0 - 0.4 [facility] x10(3)/[facility] LABORATORY Basophils % 0.5 % [facility]OR[facility] Basophils Abs 0.0 0.0 - 0.1 [facility] x10(3)/[facility] LABORATORY Immature Gran % 0.50 % [facility] Comment: Immature granulocytes(IG's)percentage an d absolute count will include metamyelocytes, myelocytes, and promyelo cytes. Blood smears from CBCs yielding IG's will be scanned manually for concor dance. If this scan disagrees with the automated IG or if promyelocytes are not ed, a manual differential will be performed. Jennifer Gran Abs 0.05 (H) 0.00 - 0.04 x10(3)/[facility] LABORATORY Specimen Anatomical Collection Method Collection Time Receive d Time (Source) Location / / Volume Laterality Blood specimen 03/25/2019 2:28 AM 019 3:09 (specimen) EDT AM EDT Resulting Agency Comment Spec In Lab Tk Belle MD HEMATOLOGY ORDERABLES Performing Organization Address City/State/ZIP [place] [address] (ABNORMAL) Hemogram (03/25/2019 2:28 AM EDT) Analysis Performed At Patho logist Time Signature WBC 11.0 (H) 4.0 - 9.5 [facility] x10(3)/[facility] LABORATORY RBC 2.72 (L) 4.00 - [facility] 5.21 [facility] x10(6)/[facility] LABORATORY Hemoglobin 7.9 (L) 11.7 - [facility] 15.[facility] gm/dL [facility] LAB[facility]ORY Hematocrit 23.4 (L) 35.7 - [facility] 45.8 % [facility] MCV 86.0 82.6 - [facility] 94.4 [facility] LABORATORY MCH 29.0 27.1 - [facility] 32.0 pg [facility] LABORATORY MCHC 33.8 31.7 - [facility] 35.0 gm/dL [facility] LAB[facility] Platelets 120 (L) 145 - 357 [facility] x10(3)/[facility] LABORATORY RDWSD 54.6 (H) 37.0 - [facility] 46.0 [facility] LABORATORY RDWCV 17.5 (H) 11.5 - [facility] 14.1 % [facility] LABORATORY MPV 10.3 7.6 - 12.9 [facility] LABORATORY nRBC % Auto 0.0 % [facility] nRBC Abs Auto 0.000 0.000 - [facility] 0.000 [facility] x10(3)/[facility] LABORATORY Specimen Anatomical Collection Method Collection Time Receive d Time (Source) Location / / Volume Laterality Blood specimen 03/25/2019 2:28 AM 019 3:09 (specimen) EDT AM EDT Resulting Agency Comment Spec In Lab Tk Belle MD HEMATOLOGY ORDERABLES Performing Organization Address City/State/[place] [address] (ABNORMAL) Hepatic Function Panel (03/25/2019 2:28 AM EDT) athologist Signature Total Protein 4.4 (L) 6.1 - 8.0 [facility] gm/dL [facility] Albumin 2.5 (L) 3.2 - 5.2 [facility] gm/dL [facility] AST 41 (H) 0 - 30 [facility] [place] unit/L [facility] ALT 24 0 - 30 [facility] unit/L [facility] Alk Phos 38 35 - 105 [facility] unit/L [facility] Total 0.4 0.2 - 1.3 [facility] Bilirubin mg/dL [facility] Bili, Direct 0.1 0.0 - 0.3 [facility] mg/dL [facility] LAB[facility]ORY Specimen Anatomical Collection Method Collection Time Receive d Time (Source) Location / / Volume Laterality Blood specimen 03/25/2019 2:28 AM 019 3:09 (specimen) EDT AM EDT Resulting Agency Comment Spec In Lab Bin Encinas MD CHEMISTRY ORDERABLES Performing Organization Address City/Va Hospital/[place] [address] POCT Glucose (03/24/2019 11:59 AM EDT) athologist [facility] POC Glucose 95 65 - 199 [facility] [place] mg/dL [facility] Comment: Supplemental ranges: <140 mg/dL before meals <180 mg/dL all other times of the day Specimen Anatomical Collection Method Collection Time Receive d Time (Source) Location / / Volume Laterality Blood specimen 03/24/2019 11:59 9 (specimen) AM EDT 11:59 AM EDT Sunshine Moncada MD POINT OF CARE TEST ORDERABLE S Performing Organization Address City/[facility] Hospital/[place] [address] (ABNORMAL) Hemogram (03/24/2019 11:55 AM EDT) Analysis Performed At Patho logist Time Signature WBC 11.0 (H) 4.0 - 9.5 [facility] x[facility](3[facility] LABORATORY RBC 2.71 (L) 4.00 - [facility] [place] 5.21 [facility] x10(6)/[facility] LABORATORY Hemoglobin 7.7 (L) 11.7 - [facility] 15.5 gm/dL [facility] LABOR[facility]ORY Hematocrit 22.3 (L) 35.7 - [facility] 45.8 % [facility]ORY MCV 82.3 (L) 82.6 - [facility] 94.4 [facility] LABORATORY MCH 28.4 27.1 - [facility] 32.0 pg [facility]ORY MCHC 34.5 31.7 - [facility] 35.0 gm/dL [facility] Platelets 117 (L) 145 - 357 [facility] x10(3)/[facility] LABORATORY RDWSD 49.0 (H) 37.0 - [facility] 46.0 [facility] LABORATORY RDWCV 16.7 (H) 11.5 - [facility] 14.1 % [facility] LABORATORY MPV 10.5 7.6 - 12.9 [facility] LABORATORY nRBC % Auto 0.0 % [facility] LABORATORY nRBC Abs Auto 0.000 0.000 - [place] [place] 0.000 [facility] x10(3)/[facility] LABORATORY Specimen Anatomical Collection Method Collection Time Receive d Time (Source) Location / / Volume Laterality Blood specimen 03/24/2019 11:55 9 (specimen) AM EDT 12:05 PM EDT Resulting Agency Comment Spec In Lab Sunshine Moncada MD HEMATOLOGY ORDERABLES Performing Organization Address City/State/ZIP [place] [address] POCT Glucose (03/24/2019 7:50 AM EDT) P athologist Signature POC Glucose 94 65 - 199 [facility] mg/dL [facility] Comment: Supplemental ranges: <140 mg/dL before meals <180 mg/dL all other times of the day Specimen Anatomical Collection Method Collection Time Receive d Time (Source) Location / / Volume Laterality Blood specimen 03/24/2019 7:50 AM 7:50 (specimen) EDT AM EDT Sunshine Moncada MD POINT OF CARE TEST ORDERABLE S Performing Organization Address City/State/ZIP Code [place] [address] (ABNORMAL) Hemogram (03/24/2019 6:00 AM EDT) Analysis Performed At Patho logist Time Signature WBC 10.5 (H) 4.0 - 9.5 [facility] x[facility](3[facility] LABORATORY RBC 2.82 (L) 4.00 - [facility] 5.21 [facility] x10(6)/[facility] LABORATORY Hemoglobin 8.0 (L) 11.7 - [facility] 15.5 gm/dL [facility] LABOR[facility]ORY Hematocrit 22.6 (L) 35.7 - [facility] 45.8 % [facility] MCV 80.1 (L) 82.6 - [facility] 94.4 [facility] LABORATORY MCH 28.4 27.1 - [facility] 32.0 pg [facility] MCHC 35.4 (H) 31.7 - [facility] gm/dL [facility] Platelets 110 (L) 145 - 357 [facility] x10(3)/[facility] LABORATORY RDWSD 47.8 (H) 37.0 - [facility] 46.0 [facility] LABORATORY RDWCV 16.5 (H) 11.5 - [facility] 14.1 % [facility] LABORATORY MPV 10.1 7.6 - 12.9 [facility] LABORATORY nRBC % Auto 0.0 % [facility] LABORATORY nRBC Abs Auto 0.000 0.000 - [facility] 0.000 [facility] x10(3)/[facility] LABORATORY Specimen Anatomical Collection Method Collection Time Receive d Time (Source) Location / / Volume Laterality Blood specimen 03/24/2019 6:00 AM 6:03 (specimen) EDT AM EDT Resulting Agency Comment Spec In Lab Sunshine Moncada MD HEMATOLOGY ORDERABLES Performing Organization Address City/State/ZIP [place] [address] Transfuse RBC (03/24/2019 4:06 AM EDT) Sunshine Moncada MD NURSING TREATMENT ORDERABLES - BLOOD ADMIN Transfuse RBC (03/24/2019 4:06 AM EDT) Sunshine Moncada MD NURSING TREATMENT ORDERABLES - BLOOD ADMIN Prepare RBC (03/24/2019 1:35 AM EDT) P athologist Signature Dispensed? Yes [facility] LABORATORY Specimen Anatomical Collection Method Collection Time Receive d Time (Source) Location / / Volume Laterality Blood specimen 03/24/2019 1:35 AM 019 1:32 (specimen) EDT AM EDT Sunshine Moncada MD BLOOD BANK ORDERABLES Performing Organization Address City/State/ZIP [place] [address] (ABNORMAL) Hemogram (03/24/2019 12:10 AM EDT) Analysis Performed At Patho logist Time Signature WBC 10.5 (H) 4.0 - 9.5 [facility] x10(3)/[facility] LABORATORY RBC 2.48 (L) 4.00 - [facility] [place] 5.21 [facility] x10(6)/[facility] LABORATORY Hemoglobin 6.9 (L) 11.7 - [facility] [place] 15.5 gm/dL [facility] LABORATORY Hematocrit 19.7 (L) 35.7 - [facility] [place] 45.8 % [facility] LABORATORY MCV 79.4 (L) 82.6 - [facility] [place] 94.4 [facility] LABORATORY MCH 27.8 27.1 - [facility] [place] 32.0 pg [facility] LABORATORY MCHC 35.0 31.7 - [facility] [place] 35.0 gm/dL [facility] LABOR[facility]ORY Platelets 118 (L) 145 - 357 [facility] [place] x10(3)/[facility] LABORATORY RDWSD 51.8 (H) 37.0 - [facility] [place] 46.0 [facility] LABORATORY RDWCV 17.8 (H) 11.5 - [facility] [place] 14.1 % [facility] LABORATORY MPV 10.6 7.6 - 12.9 [facility] LABORATORY nRBC % Auto 0.0 % [facility] LABORATORY nRBC Abs Auto 0.000 0.000 - [facility] 0.000 [facility] x10(3)/[facility] LABORATORY Specimen Anatomical Collection Method Collection Time Receive d Time (Source) Location / / Volume Laterality Blood specimen 03/24/2019 12:10 9 (specimen) AM EDT 12:14 AM EDT Resulting Agency Comment Spec In Lab Sunshine Moncada MD HEMATOLOGY ORDERABLES Performing Organization Address City/[facility] Hospital/[place] [address] (ABNORMAL) Prothrombin Time (03/24/2019 12:10 AM EDT) P athologist Signature PT 16.2 (H) 9.4 - 12.5 [facility] LABORATORY INR 1.4 [facility] LABORATORY Comment: An INR <2.0 indicates adequate [...] Moncada MD HEMATOLOGY ORDERABLES Performing Organization Address City/[facility] Hospital/Z[place] [address] (ABNORMAL) Hepatic Function Panel (03/24/2019 12:10 AM EDT) P athologist Signature Total Protein 4.4 (L) 6.1 - 8.0 [facility] gm/dL [facility] Albumin 2.7 (L) 3.2 - 5.2 [facility] gm/dL [facility] AST 55 (H) 0 - 30 [facility] [place] unit/L [facility] ALT 29 0 - 30 [facility] unit/L [facility] LAB[facility]ORY Alk Phos 34 (L) 35 - 105 [facility] unit/L [facility] Total 0.6 0.2 - 1.3 [facility] Bilirubin mg/dL [facility] LABOR[facility]ORY Bili, Direct 0.2 0.0 - 0.3 [facility] mg/dL [facility] Specimen Anatomical Collection Method Collection Time Receive d Time (Source) Location / / Volume Laterality Blood specimen 03/24/2019 12:10 9 (specimen) AM EDT 12:14 AM EDT Resulting Agency Comment Spec In Lab Bin Encinas MD CHEMISTRY ORDERABLES Performing Organization Address City/State/ZIP [place] [address] (ABNORMAL) Basic Metabolic Panel (non-fasting) (03/24/2019 12:10 AM EDT) athologist Signature Glucose Lvl 128 65 - 199 [facility] mg/dL [facility] Comment: Diabetes: >=200 mg/dL plus symp toms BUN 5 (L) 8 - 18 mg/dL [facility] LABORATORY Creatinine 0.49 (L) 0.70 - 1.20 mg/dL [facility] LABOR[facility]ORY Sodium 140 135 - 145 mmol/L [facility] LABOR[facility] Potassium 3.9 3.5 - 5.0 mmol/L [facility] Comment: Please note: ??Patients with WBC >100,00 0 may have falsely elevated Potassium levels. ??For accurate Potassium quantif ication in these patients send serum separator tube (gold top) for subsequent determinations. ??Contact the Clinical Chemistry Laboratory if there are any qu estions. Chloride 107 98 - 107 mmol/L [facility]OR[facility]ORY CO2 26 22 - 31 mmol/L [facility]OR[facility] Anion Gap 7 5 - 15 mmol/L [facility] LABOR[facility]ORY Calcium 7.8 (L) 8.5 - 10.5 mg/dL [facility] Estimated GFR 121 >=60 mL/min/1.73 m?? [facility] Comment: The eGFR was calculated using the CKD-EP I equation. As with all creatinine based estimates of kidney function, eGFR values calculated with the CKD-EPI equation are not accurate in patients wi th acute kidney failure, extremes of body mass or the acutely ill. [email or web address] eGFR 140 >=60 mL/min/1.73 m?? [facility]OR[facility] Comment: The eGFR was calculated using the CKD-EP I equation. As with all creatinine based estimates of kidney function, eGFR values calculated with the CKD-EPI equation are not accurate in patients wi th acute kidney failure, extremes of body mass or the acutely ill. [email or web address] [place] Specimen Anatomical Collection Method Collection Time Receive d Time (Source) Location / / Volume Laterality Blood specimen 03/24/2019 12:10 9 (specimen) AM EDT 12:14 AM EDT Resulting Agency Comment Spec In Lab Sunshine Moncada MD CHEMISTRY ORDERABLES Performing Organization Address City/State/[place] [address] POCT Glucose (03/23/2019 8:35 PM EDT) P athologist Signature POC Glucose 126 65 - 199 [facility] mg/dL [facility] Comment: Supplemental ranges: <140 mg/dL before meals <180 mg/dL all other times of the day Specimen Anatomical Collection Method Collection Time Receive d Time (Source) Location / / Volume Laterality Blood specimen 03/23/2019 8:35 PM 019 8:35 (specimen) EDT PM EDT Sunshine Moncada MD POINT OF CARE TEST ORDERABLE S Performing Organization Address City/State/[place] [address] (ABNORMAL) Hemogram (03/23/2019 5:30 PM EDT) Analysis Performed At Patho logist Time Signature WBC 9.7 (H) 4.0 - 9.5 [facility] x10(3)/[facility] LABORATORY RBC 2.72 (L) 4.00 - [facility] 5.21 [facility] x10(6)/[facility] [facility] Hemoglobin 7.7 (L) 11.7 - BRANDI [place] 15.5 gm/dL [facility] LABORATORY Hematocrit 21.8 (L) 35.7 - BRANDI [place] 45.8 % [facility] LABORATORY MCV 80.1 (L) 82.6 - BRANDI MIKE 94.4 [facility] LABORATORY MCH 28.3 27.1 - BRANDI [place] 32.0 pg [facility] LABORATORY MCHC 35.3 (H) 31.7 - BRANDI [place] 35.0 gm/dL [facility] LABORATORY Platelets 114 (L) 145 - 357 [facility] x10(3)/[facility] LABORATORY RDWSD 49.9 (H) 37.0 - BRANDI MIKE 46.0 [facility] LABORATORY RDWCV 17.2 (H) 11.5 - [facility] [place] 14.1 % [facility] LABORATORY MPV 10.5 7.6 - 12.9 [facility] LABORATORY nRBC % Auto 0.0 % [facility] LABORATORY nRBC Abs Auto 0.000 0.000 - BRANDI [place] 0.000 [facility] x10(3)/[facility] LABORATORY Specimen Anatomical Collection Method Collection Time Receive d Time (Source) Location / / Volume Laterality Blood specimen 03/23/2019 5:30 PM 019 5:45 (specimen) EDT PM EDT Resulting Agency Comment Spec In Lab Sunsihne Moncada MD HEMATOLOGY ORDERABLES Performing Organization Address City/State/ZIP [place] [address] POCT Glucose (03/23/2019 5:27 PM EDT) P athologist Signature POC Glucose 109 65 - 199 [facility] mg/dL [facility] LABORATORY Comment: Supplemental ranges: <140 mg/dL before meals <180 mg/dL all other times of the day Specimen Anatomical Collection Method Collection Time Receive d Time (Source) Location / / Volume Laterality Blood specimen 03/23/2019 5:27 PM 019 5:27 (specimen) EDT PM EDT Sunshine Moncada MD POINT OF CARE TEST ORDERABLE S Performing Organization Address City/State/[place] [address] XR Fluoro No Rad <1Hr - OR Use (03/23/2019 4:47 PM EDT) Specimen (Source) Anatomical Location Collection Method / Collectio n Time Received Time / Laterality Volume Narrative DH RAD - 03/23/2019 4:48 PM EDT This exam is auto-finalizing. No interpr etation was done. Sunshine Moncada MD IMG FLUORO ORDERABLES Performing Organization Address City/State/ZIP Code Phon e Number DH RAD RAD [place], [place] POCT Glucose (03/23/2019 12:04 PM EDT) P athologist Signature POC Glucose 116 65 - 199 [facility] mg/dL [facility] LABORATORY Comment: Supplemental ranges: <140 mg/dL before meals <180 mg/dL all other times of the day Specimen Anatomical Collection Method Collection Time Receive d Time (Source) Location / / Volume Laterality Blood specimen 03/23/2019 12:04 9 (specimen) PM EDT 12:04 PM EDT Bin Encinas MD POINT OF CARE TEST ORDERABLE S Performing Organization Address City/State/[place] [address] Scan, Peripheral Blood (03/23/2019 10:15 AM EDT) Patholo gist Method Time Signature Plat Estimate Decreased [facility] LABORATORY RBC Morphology Abnormal [facility] LABORATORY Hypochromia Slight [facility] LABORATORY Prue Cells 1-5 /HPF [facility] LABORATORY Stippled RBCs Present >1/HPF [facility] LABORATORY Specimen Anatomical Collection Method Collection Time Receive d Time (Source) Location / / Volume Laterality Blood specimen 03/23/2019 10:15 9 (specimen) AM EDT 10:44 AM EDT Resulting Agency Comment Spec In Lab Kings Dukes MD HEMATOLOGY ORDERABLES Performing Organization Address City/State/[place] [address] (ABNORMAL) Hemogram (03/23/2019 10:15 AM EDT) Analysis Performed At Patho logist Time Signature WBC 8.3 4.0 - 9.5 [facility] x10(3)/[facility] LABORATORY RBC 2.72 (L) 4.00 - BR[place]I [place] 5.21 [facility] x10(6)/[facility] LABORATORY Hemoglobin 7.6 (L) 11.7 - [facility] 15.5 gm/dL [facility] LABORATORY Hematocrit 22.0 (L) 35.7 - [facility] 45.8 % [facility] MCV 80.9 (L) 82.6 - [facility] 94.4 [facility] LABORATORY MCH 27.9 27.1 - [place] 32.0 pg [facility] LABORATORY MCHC 34.5 31.7 - [facility] 35.0 gm/dL [facility] LABORATORY Platelets 69 (L) 145 - 357 [facility] x10(3)/[facility] LABORATORY RDWSD 47.5 (H) 37.0 - [facility] 46.0 [facility] LABORATORY RDWCV 16.4 (H) 11.5 - [facility] 14.1 % [facility] LABORATORY MPV 10.5 7.6 - 12.9 [facility] LABORATORY nRBC % Auto 0.0 % [facility] LABORATORY nRBC Abs Auto 0.000 0.000 - BRANDI MIKE 0.000 [facility] x10(3)/[facility] LABORATORY Specimen Anatomical Collection Method Collection Time Receive d Time (Source) Location / / Volume Laterality Blood specimen 03/23/2019 10:15 9 (specimen) AM EDT 10:44 AM EDT Resulting Agency Comment Spec In Lab Sunshine Moncada MD HEMATOLOGY ORDERABLES Performing Organization Address City/State/ZIP [place] [address] (ABNORMAL) Calcium (03/23/2019 10:15 AM EDT) P athologist Signature Calcium 7.1 (L) 8.5 - 10.5 [facility] mg/dL [facility] LAB[facility]ORY Specimen Anatomical Collection Method Collection Time Receive d Time (Source) Location / / Volume Laterality Blood specimen 03/23/2019 10:15 9 (specimen) AM EDT 10:44 AM EDT Resulting Agency Comment Spec In Lab Bin Encinas MD CHEMISTRY ORDERABLES Performing Organization Address City/[facility] Hospital/ZIP Code Phon e Number [address] APTT (03/23/2019 10:15 AM EDT) P athologist Signature PTT 27 25 - 37 sec [facility] LABORATORY Comment: The PTT is NOT appropriate [...] Encinas MD HEMATOLOGY ORDERABLES Performing Organization Address [facility] Code Phon e Number [address] EKG 12 Lead (03/23/2019 9:01 AM EDT) Component Value Ref Range Test Analysis Performed Pathologis t Method Time At Signature Ventricular rate 93 BPM MUSE SYSTEM Atrial Rate 93 BPM MUSE SYSTEM P-R Interval 132 ms MUSE SYSTEM QRS Duration 88 ms MUSE SYSTEM Q-T Interval 340 ms MUSE SYSTEM QTC Calculated 422 ms MUSE SYSTEM (Bezet) Calculated P [place] 51 degrees MUSE SYSTEM Calculated R [place] 52 degrees MUSE SYSTEM Calculated T [place] 33 degrees MUSE SYSTEM INTERPRETATION Normal sinus rhythm MUSE SYSTEM Nonspecific T wave abnormality Abnormal ECG No previous ECGs available Confirmed by MD Vanessa, Jonnathan ([id number]) on 03/23/2019 9:3 3:21 AM Specimen Anatomical Collection Method Collection Time Receive d Time (Source) Location / / Volume Laterality 03/23/2019 9:01 AM 9 9:33 EDT AM EDT Bin Encinas MD ECG ORDERABLES Performing Organization Address City/[facility] Hospital/ZIP Code Phon e Number MUSE SYSTEM POCT Glucose (03/23/2019 8:08 AM EDT) P athologist Signature POC Glucose 100 65 - 199 BRANDI GALEANO mg/dL [facility] LABORATORY Comment: Supplemental ranges: <140 mg/dL before meals <180 mg/dL all other times of the day Specimen Anatomical Collection Method Collection Time Receive d Time (Source) Location / / Volume Laterality Blood specimen 03/23/2019 8:08 AM 019 8:08 (specimen) EDT AM EDT Bin Encinas MD POINT OF CARE TEST ORDERABLE S Performing Organization Address City/State/ZIP Code Phon e Number [place] [address] Transfuse RBC (03/23/2019 7:22 [...] contact e number below. Electronically signed by: Brissa Perea [facility] ([phone]), at 03/23/2019 6:41 AM Bin Encinas MD IMG DX ORDERABLES XR [...] e number below. ? Electronically signed by: Brissa Perea [facility] ([phone]), at 03/23/2019 6:39 AM Narrative 03/23/2019 6:39 AM EDT EXAMINATION: XR [...] contact e number below. Electronically signed by: Brissa Perea [facility] ([phone]), at 03/23/2019 6:39 AM Bin Encinas MD IMG DX ORDERABLES XR [...] contact e number below. Electronically signed by: Brissa Perea [facility] ([phone]), at 03/23/2019 6:37 AM Bin Encinas MD IMG DX ORDERABLES CT [...] e number below. ? Electronically signed by: Brissa Perea [facility] ([phone]), at 03/23/2019 6:36 AM Narrative 03/23/2019 6:36 AM EDT EXAMINATION: CT [...] e number below. ? Electronically signed by: Brissa Perea [facility] ([phone]), at 03/23/2019 7:31 AM Narrative 03/23/2019 7:31 AM EDT EXAMINATION: CT [...] at the neck has been reduced. The plug sorter ior subtalar joint is congruent. There is [...] at the neck has been reduced. The plug sorter ior subtalar joint is congruent. There is [...] contact e number below. Electronically signed by: Brissa Perea [facility] ([phone]), at 03/23/2019 7:31 AM Bin Encinas MD IMG CT ORDERABLES CT [...] e number below. ? Electronically signed by: Brissa Perea [facility] ([phone]), at 03/23/2019 5:02 AM Narrative 03/23/2019 5:02 AM EDT EXAMINATION: CT [...] contact e number below. Electronically signed by: Brissa Perea [facility] ([phone]), at 03/23/2019 5:02 AM Bin Encinas MD IMG CT ORDERABLES Prepare RBC (03/23/2019 4:15 AM EDT) P athologist Signature Dispensed? Yes [facility] LABORATORY Specimen Anatomical Collection Method Collection Time Receive d Time (Source) Location / / Volume Laterality Blood specimen 03/23/2019 4:15 AM 019 4:15 (specimen) EDT AM EDT Bin Encinas MD BLOOD BANK ORDERABLES Performing Organization Address City/State/Z[place] [address] Differential, Automated (03/23/2019 3:52 AM EDT) P athologist Signature Neutrophils % 77.5 % [facility] LABORATORY Neutr Abs (ANC) 5.31 1.70 - [facility] 6.10 [facility] x10(3)/[facility] LABORATORY Lymphocytes % 12.6 % [facility] LABORATORY Lymphocytes Abs 0.9 0.9 - 3.2 [facility] x10(3)/[facility] LABORATORY Monocytes % 9.5 % [facility] LABORATORY Monocyte Abs 0.6 0.3 - 0.9 [facility] x10(3)/[facility] LABORATORY Eosinophils % 0.0 % [facility] LABORATORY Eosinophils Abs 0.0 0.0 - 0.4 [facility] x10(3)/[facility] LABORATORY Basophils % 0.1 % [facility] LABORATORY Basophils Abs 0.0 0.0 - 0.1 [facility] x10(3)/[facility] LABORATORY Immature Gran % 0.30 % [facility] LABORATORY Comment: Immature granulocytes(IG's)percentage an d absolute count will include metamyelocytes, myelocytes, and promyelo cytes. Blood smears from CBCs yielding IG's will be scanned manually for concor dance. If this scan disagrees with the automated IG or if promyelocytes are not ed, a manual differential will be performed. Jennifer Gran Abs 0.02 0.00 - 0.04 x10(3)/[facility] LABORATORY Specimen Anatomical Collection Method Collection Time Receive d Time (Source) Location / / Volume Laterality Blood specimen 03/23/2019 3:52 AM 019 3:52 (specimen) EDT AM EDT Resulting Agency Comment Spec In Lab Frances Crawford MD HEMATOLOGY ORDERABLES Performing Organization Address City/State/ZIP [place] [address] (ABNORMAL) Hemogram (03/23/2019 3:52 AM EDT) Analysis Performed At Patho logist Time Signature WBC 6.8 4.0 - 9.5 [facility] x10(3)/[facility] LABORATORY RBC 2.31 (L) 4.00 - [facility] 5.21 [facility] x10(6)/[facility] LABORATORY Hemoglobin 6.7 (L) 11.7 - [facility] 15.5 gm/dL [facility] LABORATORY Hematocrit 18.8 (L) 35.7 - [facility] 45[facility] % [facility] MCV 81.4 (L) 82.6 - [facility] 94.4 fL [facility] LABORATORY MCH 29.0 27.1 - [facility] 32.0 pg [facility] LABORATORY MCHC 35.6 (H) 31.7 - BRANDI GALVANCK 35.0 gm/dL [facility] LABORATORY Platelets 105 (L) 145 - 357 BRANDI GALEANO x10(3)/[facility] LABORATORY RDWSD 45.7 37.0 - BRANDI GALEANO 46.0 [facility] LABORATORY RDWCV 15.4 (H) 11.5 - BRANDI MIKE 14.1 % [facility] LABORATORY MPV 10.4 7.6 - 12.9 BRANDI GALEANO [facility] LABORATORY nRBC % Auto 0.0 % [facility] LABORATORY nRBC Abs Auto 0.000 0.000 - BRANDI GALEANO 0.000 [facility] x10(3)/[facility] LABORATORY Specimen Anatomical Collection Method Collection Time Receive d Time (Source) Location / / Volume Laterality Blood specimen 03/23/2019 3:52 AM 019 3:52 (specimen) EDT AM EDT Resulting Agency Comment Spec In Lab Frances Crawford MD HEMATOLOGY ORDERABLES Performing Organization Address City/State/ZIP Code Phon e Number [address] Lactate, whole blood, send to lab ([facility] (03/23/2019 3:52 AM EDT) athologist [facility] Lactate WB 1.4 0.5 - 2.2 [facility] mmol/L [facility] LABORATORY Specimen Anatomical Collection Method Collection Time Receive d Time (Source) Location / / Volume Laterality Blood specimen 03/23/2019 3:52 AM 019 3:52 (specimen) EDT AM EDT Resulting Agency Comment Spec In Lab Bin Encinas MD CHEMISTRY ORDERABLES Performing Organization Address City/State/[place] [address] Troponin (03/23/2019 3:52 AM EDT) P athologist Signature Troponin-T <0.01 0.00 - 0.00 [facility] ng/mL [facility] Comment: The 99th percentile for Troponin T is le ss than 0.01 ng/mL, any detectable cTnT concentration using this assay should be considered elevated. According to the third universal definit ion of myocardial infarction the following criteria with a clinical prese ntation consistent with acute myocardial ischemia meets the diagnosis for a myocardial infarction ([place]). Detection of a rise and/or fall of [...] additional sample may be indicated. Reference: Third Dumont Definition of Myocardial Infarction. Journal of the [place] [employer] 2012;60:1581-98 Specimen Anatomical Collection Method Collection Time Receive d Time (Source) Location / / Volume Laterality Blood specimen 03/23/2019 3:52 AM 019 3:52 (specimen) EDT AM EDT Resulting Agency Comment Spec In Lab Bin Encinas MD CHEMISTRY ORDERABLES Performing Organization Address City/State/ZIP [place] [address] (ABNORMAL) Basic Metabolic Panel (non-fasting) (03/23/2019 3:52 AM EDT) athologist Signature Glucose Lvl 122 65 - 199 [facility] mg/dL [facility] Comment: Diabetes: >=200 mg/dL plus symp toms BUN 10 8 - 18 mg/dL [facility] LABORATORY Creatinine 0.54 (L) 0.70 - 1.20 mg/dL [facility] LABORATORY Sodium 142 135 - 145 mmol/L [facility] LABORATORY Potassium 4.5 3.5 - 5.0 mmol/L [facility] LABORATORY Comment: Please note: ??Patients with WBC >100,00 0 may have falsely elevated Potassium levels. ??For accurate Potassium quantif ication in these patients send serum separator tube (gold top) for subsequent determinations. ??Contact the Clinical Chemistry Laboratory if there are any qu estions. Chloride 111 (H) 98 - 107 mmol/L [facility] LABORATORY CO2 22 22 - 31 mmol/L [facility] LABORATORY Anion Gap 9 5 - 15 mmol/L [facility] LABORATORY Calcium 6.8 (Critical) 8.5 - 10.5 mg/dL [facility] LABORATORY Comment: Called by: MARIA LUISA, Read back by: German OKEEFE, Date/Time:03/23/19 05:05. Estimated GFR 117 >=60 mL/min/1.73 m?? [facility] LABORATORY Comment: The eGFR was calculated using the CKD-EP I equation. As with all creatinine based estimates of kidney function, eGFR values calculated with the CKD-EPI equation are not accurate in patients wi th acute kidney failure, extremes of body mass or the acutely ill. [email or web address] eGFR 136 >=60 mL/min/1.73 m?? [facility] LABORATORY Comment: The eGFR was calculated using the CKD-EP I equation. As with all creatinine based estimates of kidney function, eGFR values calculated with the CKD-EPI equation are not accurate in patients wi th acute kidney failure, extremes of body mass or the acutely ill. [email or web address]/[facility] Specimen Anatomical Collection Method Collection Time Receive d Time (Source) Location / / Volume Laterality Blood specimen 03/23/2019 3:52 AM 019 3:52 (specimen) EDT AM EDT Resulting Agency Comment Spec In Lab Bin Encinas MD CHEMISTRY ORDERABLES Performing Organization Address City/State/ZIP [place] [address] XR Fluoro No Rad <1Hr - OR Use (03/23/2019 3:30 AM EDT) Specimen (Source) Anatomical Location Collection Method / Collectio n Time Received Time / Laterality Volume Narrative DH RAD - 03/23/2019 3:32 AM EDT This exam is auto-finalizing. No interpr etation was done. Bin Encinas MD IMG FLUORO ORDERABLES Performing Organization Address City/[facility] Hospital/ZIP Code Phon e Number RAD [place], [place] (ABNORMAL) Fibrinogen (03/23/2019 1:30 AM EDT) athologist Signature Fibrinogen 152 (L) 200 - 393 [facility] Comment: A fibrinogen level >100 mg/dL is adequat e for hemostasis in most patients without underlying bleeding disorders. Specimen Anatomical Collection Method Collection Time Receive d Time (Source) Location / / Volume Laterality Blood specimen 03/23/2019 1:30 AM 019 1:34 (specimen) EDT AM EDT Resulting Agency Comment Spec In Lab Bin Encinas MD HEMATOLOGY ORDERABLES Performing Organization Address City/[facility] Hospital/ZIP [place] [address] Prepare RBC (03/23/2019 1:30 AM EDT) athologist Signature Dispensed? Yes [facility] LABORATORY Specimen Anatomical Collection Method Collection Time Receive d Time (Source) Location / / Volume Laterality Blood specimen 03/23/2019 1:30 AM 019 1:27 (specimen) EDT AM EDT Bin Encinas MD BLOOD BANK ORDERABLES Performing Organization Address City/[facility] Hospital/ZIP [place] [address] Troponin (03/22/2019 11:00 PM EDT) athologist Signature Troponin-T <0.01 0.00 - 0.00 [facility] ng/mL [facility] Comment: The 99th percentile for Troponin T is le ss than 0.01 ng/mL, any detectable cTnT concentration using this assay should be considered elevated. According to the third universal definit ion of myocardial infarction the following criteria with a clinical prese ntation consistent with acute myocardial ischemia meets the diagnosis for a myocardial infarction ([place]). Detection of a rise and/or fall of [...] additional sample may be indicated. Reference: Third Dumont Definition of Myocardial Infarction. Journal of the [place] [employer] 2012;60:1581-98 Specimen Anatomical Collection Method Collection Time Receive d Time (Source) Location / / Volume Laterality Blood specimen 03/22/2019 11:00 9 (specimen) PM EDT 11:12 PM EDT Resulting Agency Comment Spec In Lab Bin Encinas MD CHEMISTRY ORDERABLES Performing Organization Address City/State/ZIP [place] [address] (ABNORMAL) Hemogram (03/22/2019 11:00 PM EDT) P athologist Signature WBC 7.4 4.0 - 9.5 [facility] x10(3)/[facility] LABORATORY RBC 2.80 (L) 4.00 - [facility] 5.21 [facility] x10(6)/[facility] LABORATORY Hemoglobin 8.1 (L) 11.7 - [facility] 15.5 gm/dL [facility] Comment: This result has been called to RAMIREZ IRVING by KOTA BARKER on 03 22 2019 at 2324, and has been read back. Hematocrit 23.8 (L) 35.7 - 45.8 % [facility] LABORATORY MCV 85.0 82.6 - 94.4 fL [facility] LABORATORY MCH 28.9 27.1 - 32.0 pg [facility] LABORATORY MCHC 34.0 31.7 - 35.0 gm/dL [facility] LABORATORY Platelets 120 (L) 145 - 357 x10(3)/[facility] LABORATORY Comment: Patient Transfused. RDWSD 47.2 (H) 37.0 - 46.0 fL [facility] LABORATORY RDWCV 15.3 (H) 11.5 - 14.1 % [facility] LABORATORY MPV 10.3 7.6 - 12.9 fL [facility] LABORATORY nRBC % Auto 0.0 % [facility] LABORATORY nRBC Abs Auto 0.000 0.000 - 0.000 x10(3)/[facility] LABORATORY Specimen Anatomical Collection Method Collection Time Receive d Time (Source) Location / / Volume Laterality Blood specimen 03/22/2019 11:00 9 (specimen) PM EDT 11:12 PM EDT Resulting Agency Comment Spec In Lab Sunshine Moncada MD HEMATOLOGY ORDERABLES Performing Organization Address City/[facility] Hospital/ZIP Code Phon e Number [address] APTT (03/22/2019 11:00 PM EDT) P athologist Signature PTT 28 25 - 37 sec [facility] LABORATORY Comment: The PTT is NOT appropriate [...] Organization Address City/State/ZIP Code Phon e Number [address] (ABNORMAL) Prothrombin Time (03/22/2019 11:00 PM EDT) P athologist Signature PT 14.8 (H) 9.4 - 12.5 [facility] LABORATORY INR 1.3 [facility] LABORATORY Comment: An INR <2.0 indicates adequate [...] Encinas MD HEMATOLOGY ORDERABLES Performing Organization Address City/[facility] Hospital/ZIP Code Phon e Number [address] POCT Glucose (03/22/2019 10:59 PM EDT) P athologist Signature POC Glucose 139 65 - 199 [facility] mg/dL [facility] LAB[facility]ORY Comment: Supplemental ranges: <140 mg/dL before meals <180 mg/dL all other times of the day Specimen Anatomical Collection Method Collection Time Receive d Time (Source) Location / / Volume Laterality Blood specimen 03/22/2019 10:59 9 (specimen) PM EDT 10:59 PM EDT Bin Encinas MD POINT OF CARE TEST ORDERABLE S Performing Organization Address City/[facility] Hospital/[place] [address] Prepare thawed plasma (03/22/2019 10:35 PM EDT) P athologist Signature Dispensed? Yes [facility] LABORATORY Specimen Anatomical Collection Method Collection Time Receive d Time (Source) Location / / Volume Laterality Blood specimen 03/22/2019 10:35 9 (specimen) PM EDT 10:36 PM EDT Bin Encinas MD BLOOD BANK ORDERABLES Performing Organization Address City/[facility] Hospital/[place] [address] Transfuse 1 unit platelets, [...] TREATMENT ORDERABLES - BLOOD ADMIN urine, qualitative ([place]/[facility]) (03/22/2019 9:18 PM EDT) Analysis Performed At Patho logist Time Signature Spec [place] 1.020 1.002 - [facility] UA 1.030 [facility] HCG Qual Negative [facility] Specimen Anatomical Collection Method Collection Time Receive d Time (Source) Location / / Volume Laterality Urine specimen 03/22/2019 9:18 PM 019 (specimen) EDT 10:01 PM EDT Resulting Agency Comment Spec In Lab Bin Encinas MD URINE ORDERABLES Performing Organization Address City/State/[place] [address] XR Knee 1-2 Views [...] e number below. ? Electronically signed by: Brissa Perea [facility] ([phone]), at 03/22/2019 9:10 PM Narrative 03/22/2019 9:10 PM EDT EXAMINATION: XR [...] report, please contact th e number below. Electronically signed by: Brissa Perea [facility] ([phone]), at 03/22/2019 9:10 PM Bin Encinas MD IMG DX ORDERABLES APTT (03/22/2019 9:00 PM EDT) P athologist Signature PTT 30 25 - 37 sec [facility] Comment: The PTT is NOT appropriate [...] Organization Address City/State/[place] [address] (ABNORMAL) Prothrombin Time (03/22/2019 9:00 PM EDT) P athologist Signature PT 16.6 (H) 9.4 - 12.5 [facility] LABORATORY INR 1.4 [facility] Comment: An INR <2.0 indicates adequate [...] Organization Address City/State/[place] [address] Film Library- Storage Only DX Ankle (03/22/2019 8:19 PM EDT) Specimen (Source) Anatomical Location Collection Method / Collectio n Time Received Time / Laterality Volume Narrative RAD - 03/22/2019 8:19 PM EDT This exam is auto-finalizing. It's purpo se is for storage only. Bin Encinas MD IMG FILM LIBRARY ORDERABLES Performing Organization Address City/Va Hospital/ZIP Code Phon e Number [place], [place] Request For 2nd Read CT Spine [...] ? Electronically signed by: Maurilio Mena MD, [facility] ([phone]), at 03/22/2019 9:06 PM Narrative 03/22/2019 9:06 [...] contact e number below. Electronically signed by: Brissa Perea [facility] ([phone]), at 03/23/2019 3:26 AM Bin Encinas MD IMG OUTSIDE INTERPRETATION O [...] below. Electronically signed by: Maurilio Mena MD, [facility] ([phone]), at 03/22/2019 8:03 PM Bin Encinas MD IMG OUTSIDE INTERPRETATION [...] residents interpretation and agree with the findings, Yesneia Dubois at 03/22/2019 9:17 PM Thank you for letting us participate in the care of this patient. For questions regarding this report, please contact [facility] number below. Bin Encinas MD IMG [...] number below. ? Electronically signed by: LUIS Chong [facility] ([phone]), at 03/22/2019 9:17 PM Narrative 03/22/2019 9:17 [...] [facility] No additional fracture is visualized. There [...] below. ? Electronically signed by: [facility] ([phone]), at 03/22/2019 8:03 PM Narrative 03/22/2019 8:03 [...] ABORH Recheck Status (03/22/2019 7:30 PM EDT) [facility] Method Time Signature ABORH Recheck Order Placed [facility] LABORATORY ABORH Type Complete [facility] LABORATORY Specimen Anatomical Collection Method Collection Time Receive d Time (Source) Location / / Volume Laterality Blood specimen 03/22/2019 7:30 PM 019 8:03 (specimen) EDT PM EDT Resulting Agency Comment Spec In Lab Yesica Burroughs MD BLOOD BANK ORDERABLES Performing Organization Address City/Va Hospital/[place] [address] Antibody screen (03/22/2019 7:30 PM EDT) Patholo gist Method Time Signature Ab Screen Negative [place] LABORATORY Expires at 03/25/2019 [facility] [id number] on: [facility] Comment: Corrected from 03/22/19 0:00:00 EDT [Unk nown] on 03/23/19 13:52:12 EDT by Lizett Cordoba. Specimen Anatomical Collection Method Collection Time Receive d Time (Source) Location / / Volume Laterality Blood specimen 03/22/2019 7:30 PM 019 8:03 (specimen) EDT PM EDT Resulting Agency Comment Spec In Lab Yesica Burroughs MD BLOOD BANK ORDERABLES Performing Organization Address City/Va Hospital/ZIP Code Phon e Number [address] ABO/Rh Typing (03/22/2019 7:30 PM EDT) P athologist Signature ABORh Type A Pos [facility] Specimen Anatomical Collection Method Collection Time Receive d Time (Source) Location / / Volume Laterality Blood specimen 03/22/2019 7:30 PM 019 8:03 (specimen) EDT PM EDT Resulting Agency Comment Spec In Lab Yesica Burroughs MD BLOOD BANK ORDERABLES Performing Organization Address City/Va Hospital/ZIP Code Phon e Number [address] Prepare RBC (03/22/2019 7:30 PM EDT) P athologist Signature Dispensed? Yes [facility] Specimen Anatomical Collection Method Collection Time Receive d Time (Source) Location / / Volume Laterality Blood specimen 03/22/2019 7:30 PM 019 7:28 (specimen) EDT PM EDT Bin Encinas MD BLOOD BANK ORDERABLES Performing Organization Address City/Va Hospital/[place] [address] Prepare Platelets, Apheresis (03/22/2019 7:25 PM EDT) P athologist Signature Dispensed? Yes [facility] Specimen Anatomical Collection Method Collection Time Receive d Time (Source) Location / / Volume Laterality Blood specimen 03/22/2019 7:25 PM 019 7:21 (specimen) EDT PM EDT Bin Encinas MD BLOOD BANK ORDERABLES Performing Organization Address City/Va Hospital/[place] [address] Prepare thawed plasma (03/22/2019 7:15 PM EDT) P athologist Signature Dispensed? No [facility] Specimen Anatomical Collection Method Collection Time Receive d Time (Source) Location / / Volume Laterality Blood specimen 03/22/2019 7:15 PM 019 7:20 (specimen) EDT PM EDT Bin Encinas MD BLOOD BANK ORDERABLES Performing Organization Address City/[facility] Hospital/[place] [address] Prepare RBC (03/22/2019 5:59 PM EDT) P athologist Signature Dispensed? Yes [facility] Specimen Anatomical Collection Method Collection Time Receive d Time (Source) Location / / Volume Laterality Blood specimen No Charge / 03/22/2019 5:59 PM 5:59 (specimen) Unknown EDT PM EDT Resulting Agency Comment Spec In Lab Bin Encinas MD BLOOD BANK ORDERABLES Performing Organization Address City/Va Hospital/[place] [address] POCT Glucose (03/22/2019 5:51 PM EDT) P athologist Signature POC Glucose 151 65 - 199 BRANDI GALEANO mg/dL [facility] Comment: Supplemental ranges: <140 mg/dL before meals <180 mg/dL all other times of the day Specimen Anatomical Collection Method Collection Time Receive d Time (Source) Location / / Volume Laterality Blood specimen 03/22/2019 5:51 PM 019 5:51 (specimen) EDT PM EDT Bin Encinas MD POINT OF CARE TEST ORDERABLE S Performing Organization Address City/State/ZIP Code Phon e Number [facility] [place] [address] Troponin (03/22/2019 5:49 PM EDT) P athologist Signature Troponin-T <0.01 0.00 - 0.00 [facility] ng/mL [facility] Comment: The 99th percentile for Troponin T is le ss than 0.01 ng/mL, any detectable cTnT concentration using this assay should be considered elevated. According to the third universal definit ion of myocardial infarction the following criteria with a clinical prese ntation consistent with acute myocardial ischemia meets the diagnosis for a myocardial infarction ([place]). Detection of a rise and/or fall of [...] additional sample may be indicated. Reference: Third Dumont Definition of Myocardial Infarction. Journal of the [place] [employer] 2012;60:1581-98 Specimen Anatomical Collection Method Collection Time Receive d Time (Source) Location / / Volume Laterality Blood specimen Venous Draw / 03/22/2019 5:49 PM 2018 6:30 (specimen) Unknown EDT PM EDT Resulting Agency Comment Spec In Lab Clarita Sher MD CHEMISTRY ORDERABLES Performing Organization Address City/State/Z[place] [address] (ABNORMAL) Differential, Automated (03/22/2019 5:49 PM EDT) [facility] Method Time Signature Neutrophils % 81.3 % [facility] Neutr Abs (ANC) 7.31 (H) 1.70 - [facility] 6.10 [facility] x10(3)/[facility] L LABORATORY Lymphocytes % 6.1 % [facility]ORY Lymphocytes Abs 0.6 (L) 0.9 - 3.2 [facility] x10(3)/[facility] LABORATORY Monocytes % 12.1 % [facility] LABORATORY Monocyte Abs 1.1 (H) 0.3 - 0.9 [facility] x10(3)/[facility] LABORATORY Eosinophils % 0.1 % [facility] LABORATORY Eosinophils Abs 0.0 0.0 - 0.4 [facility] x10(3)/[facility] LABORATORY Basophils % 0.1 % [facility] LABORATORY Basophils Abs 0.0 0.0 - 0.1 [facility] x10(3)/[facility] LABORATORY Immature Gran % 0.30 % [facility] Comment: Immature granulocytes(IG's)percentage an d absolute count will include metamyelocytes, myelocytes, and promyelo cytes. Blood smears from CBCs yielding IG's will be scanned manually for concor dance. If this scan disagrees with the automated IG or if promyelocytes are not ed, a manual differential will be performed. Jennifer Gran Abs 0.03 0.00 - 0.04 x10(3)/[facility]L [facility] LABORATORY Specimen Anatomical Collection Method Collection Time Receive d Time (Source) Location / / Volume Laterality Blood specimen 03/22/2019 5:49 PM 019 6:11 (specimen) EDT PM EDT Resulting Agency Comment Spec In Lab Siobhan Fuller MD HEMATOLOGY ORDERABLES Performing Organization Address City/State/Z[place] [address] (ABNORMAL) Hemogram (03/22/2019 5:49 PM EDT) Analysis Performed At Patho logist Time Signature WBC 9.0 4.0 - 9.5 [facility] x10(3)/[facility] LABORATORY RBC 4.35 4.00 - BR[place]I [place] 5.21 [facility] x10(6)/[facility] LABORATORY Hemoglobin 12.2 11.7 - [facility] 15.5 gm/dL [facility] Hematocrit 35.8 35.7 - [facility] 45.8 % [facility] MCV 82.3 (L) 82.6 - [facility] 94.4 [facility] LABORATORY MCH 28.0 27.1 - [facility] 32.0 pg [facility] MCHC 34.1 31.7 - [facility] 35.0 gm/dL [facility] Platelets 55 (L) 145 - 357 [facility] x10(3)/[facility] LABORATORY RDWSD 47.7 (H) 37.0 - [facility] 46.0 [facility] LABORATORY RDWCV 15.9 (H) 11.5 - [facility] 14.1 % [facility] LABORATORY MPV 12.0 7.6 - 12.9 [facility] LABORATORY nRBC % Auto 0.0 % [facility] LABORATORY nRBC Abs Auto 0.000 0.000 - [facility] 0.000 [facility] x10(3)/[facility] LABORATORY Specimen Anatomical Collection Method Collection Time Receive d Time (Source) Location / / Volume Laterality Blood specimen 03/22/2019 5:49 PM 019 6:11 (specimen) EDT PM EDT Resulting Agency Comment Spec In Lab Siobhan Fuller MD HEMATOLOGY ORDERABLES Performing Organization Address City/State/ZIP [place] [address] (ABNORMAL) D-Dimer, Quantitative (03/22/2019 5:49 PM EDT) Patholo gist Method Time Signature D-Dimer, Quant 6,738 (H) 0 - 500 BRANDI [place] FEU ng/ml [facility] Comment: The D-Dimer assay is [...] Encinas MD HEMATOLOGY ORDERABLES Performing Organization Address City/[facility] Hospital/[facility] Code Phon e Number [address] Haptoglobin (03/22/2019 5:49 PM EDT) P athologist Signature Haptoglobin Not Perf 30 - 200 BRANDI OLMEDOMIKE mg/dL [facility] Comment: Unable to quantitate due [...] Encinas MD CHEMISTRY ORDERABLES Performing Organization Address City/[facility] Hospital/[facility] [place] [address] (ABNORMAL) Fibrinogen (03/22/2019 5:49 PM EDT) P athologist Signature Fibrinogen 176 (L) 200 - 393 BR[place]I [place] mg/dL [facility] Comment: A fibrinogen level >100 mg/dL is adequat e for hemostasis in most patients without underlying bleeding disorders. Specimen Anatomical Collection Method Collection Time Receive d Time (Source) Location / / Volume Laterality Blood specimen 03/22/2019 5:49 PM 019 6:11 (specimen) EDT PM EDT Resulting Agency Comment Spec In Lab Bin Encinas MD HEMATOLOGY ORDERABLES Performing Organization Address City/Va Hospital/[place] [address] Lipase (03/22/2019 5:49 PM EDT) P athologist Signature Lipase 39 0 - 60 [facility] unit/L [facility] Specimen Anatomical Collection Method Collection Time Receive d Time (Source) Location / / Volume Laterality Blood specimen 03/22/2019 5:49 PM 019 6:11 (specimen) EDT PM EDT Resulting Agency Comment Spec In Lab Bin Encinas MD CHEMISTRY ORDERABLES Performing Organization Address City/Va Hospital/[facility] [place] [address] (ABNORMAL) Hepatic Function Panel (03/22/2019 5:49 PM EDT) Analysis Performed At Patho logist Time Signature Total Protein 4.5 (L) 6.1 - 8.0 [facility] gm/dL [facility] Albumin 2.7 (L) 3.2 - 5.2 [facility] gm/dL [facility] AST Not Perf 0 - 30 [facility] Comment: Unable to quantitate due to sample hemol ysis. ??Sample redraw suggested. Called by: brant , Read back by: Caitlin Tapia rd, Date/Time:03/22/19 19:08. ALT 38 (H) 0 - 30 unit/L [facility] Alk Phos 36 35 - 105 unit/L [facility] LABORATORY Total Bilirubin 0.9 0.2 - 1.3 mg/dL [facility] LABORATORY Bili, Direct 0.2 0.0 - 0.3 mg/dL [facility] LABORATORY Specimen Anatomical Collection Method Collection Time Receive d Time (Source) Location / / Volume Laterality Blood specimen 03/22/2019 5:49 PM 019 6:11 (specimen) EDT PM EDT Resulting Agency Comment Spec In Lab Bin Encinas MD CHEMISTRY ORDERABLES Performing Organization Address City/State/ZIP [place] [address] (ABNORMAL) Basic Metabolic Panel (non-fasting) (03/22/2019 5:49 PM EDT) athologist Signature Glucose Lvl 155 65 - 199 [facility] mg/dL [facility] Comment: Diabetes: >=200 mg/dL plus symp toms BUN 11 8 - 18 mg/dL [facility] LABORATORY Creatinine 0.56 (L) 0.70 - 1.20 mg/dL [facility] Sodium 141 135 - 145 mmol/L [facility] Potassium 4.1 3.5 - 5.0 mmol/L [facility] Comment: Please note: ??Patients with WBC >100,00 0 may have falsely elevated Potassium levels. ??For accurate Potassium quantif ication in these patients send serum separator tube (gold top) for subsequent determinations. ??Contact the Clinical Chemistry Laboratory if there are any qu estions. Chloride 111 (H) 98 - 107 mmol/L [facility] CO2 19 (L) 22 - 31 mmol/L [facility] Anion Gap 11 5 - 15 mmol/L [facility] Calcium 8.4 (L) 8.5 - 10.5 mg/dL [facility] Estimated GFR 116 >=60 mL/min/1.73 m?? [facility] Comment: The eGFR was calculated using the CKD-EP I equation. As with all creatinine based estimates of kidney function, eGFR values calculated with the CKD-EPI equation are not accurate in patients wi th acute kidney failure, extremes of body mass or the acutely ill. http://Authorly/DHMCnkf eGFR 134 >=60 mL/min/1.73 m?? [facility] Comment: The eGFR was calculated using the CKD-EP I equation. As with all creatinine based estimates of kidney function, eGFR values calculated with the CKD-EPI equation are not accurate in patients wi th acute kidney failure, extremes of body mass or the acutely ill. http://Authorly/DHnkf Specimen Anatomical Collection Method Collection Time Receive d Time (Source) Location / / Volume Laterality Blood specimen 03/22/2019 5:49 PM 019 6:11 (specimen) EDT PM EDT Resulting Agency Comment Spec In Lab Bin Encinas MD CHEMISTRY ORDERABLES Performing Organization Address City/Va Hospital/[facility] [place] [address] APTT (03/22/2019 5:49 PM EDT) P athologist Signature PTT 26 25 - 37 sec [facility] Comment: The PTT is NOT appropriate [...] Encinas MD HEMATOLOGY ORDERABLES Performing Organization Address City/[facility] Hospital/[facility] [place] [address] (ABNORMAL) Prothrombin Time (03/22/2019 5:49 PM EDT) P athologist Signature PT 13.1 (H) 9.4 - 12.5 [facility] LABORATORY INR 1.1 [facility]ORATORY Comment: An INR <2.0 indicates adequate [...] Organization Address City/State/ZIP Code Phon e Number [facility] [place] [address] documented in this encounter [...] [id number] (Given - Provider: Aleksandra Miller RN) 5,000 Units, Subcutaneous, EVERY 8 HOURS SCHEDULED, [...] [id number])2025 (Given - Provider: Taty Durand RN) 09 (Given - Provider: Aleksandra Miller RN) 2 [...]
Routine documented in this encounter Care Teams Plate Glass Grinder Relationship Specialty Start Date End Date None PCP - General 03/22/19 11/11/19 None documented as of this encounter
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
--- OUTSIDE RECORDS SUMMARY | 2022-01-02 11:10 | XMS_ITS | Encounter Summary ---
:1975 [place] [address] Care Team Providers Name Role Phone None Primary Care Provider Unavailable Encounter Details Date Type Department Care Team Description 03/22/2019 Ancillary Procedure Radiology Library at [facility], And dominik Guevara [facility] [place] [facility] [place] [address] [place] [address] [phone] (Wo rk) Social History Tobacco Use Types [...] 02/08/2022 Office Visit Orthopaedics Bee Dupree MD [facility] DR ORTHOPAEDIC SURG [place], [place] [address] (Wo rk) documented as of this encounter Procedures Procedure Name Priority Date/Time Associated Diagnosis Comme nts FILM LIBRARY Routine 03/22/2019 2:07 PM Results f or this STORAGE ONLY CT EDT procedure ar e in CHEST ABDOMEN the results PELVIS section. documented in this encounter Results Film Library- Storage Only CT Chest Abdomen Pelvis (03/22/2019 2:07 PM EDT) Specimen (Source) Anatomical Location Collection Method / Collectio n Time Received Time / Laterality Volume Narrative RAD - 03/22/2019 2:07 PM EDT This exam is auto-finalizing. It's purpo se is for storage only. Bin Encinas MD IMG FILM LIBRARY ORDERABLES Performing Organization Address City/State/ZIP Code Phon e Number RAD [place], [place] documented in this encounter Visit Diagnoses Not on filedocumented in this encounter Care Teams Stranding Machine Operator Helper Relationship Specialty Start Date End Date None PCP - General 03/22/19 11/11/19 None documented as of this encounter
--- OUTSIDE RECORDS SUMMARY | 2022-01-02 11:10 | XMS_ITS | Encounter Summary ---
:1975 Author Organization [facility] Address [address] [place] [address] Care Team Providers Name Role Phone None Primary Care Provider Unavailable Encounter Details Date Type Department Care Team Description 03/22/2019 Ancillary Procedure [place] [address] Social History Tobacco Use Types Packs/Day [...] 02/08/2022 Office Visit Orthopaedics Bee Dupree MD [facility] DR ORTHOPAEDIC SURG [place], [place] [address] (Wo rk) documented as of this encounter Procedures Procedure Name Priority Date/Time Associated Diagnosis Comme nts FILM LIBRARY Routine 03/22/2019 8:19 PM Results f or this STORAGE ONLY DX EDT procedure ar e in ANKLE the results section. documented in this encounter Results Film Library- Storage Only DX Ankle (03/22/2019 8:19 PM EDT) Specimen (Source) Anatomical Location Collection Method / Collectio n Time Received Time / Laterality Volume Narrative RAD - 03/22/2019 8:19 PM EDT This exam is auto-finalizing. It's purpo se is for storage only. Bin Encinas MD IMG FILM LIBRARY ORDERABLES Performing Organization Address City/State/ZIP Code Phon e Number [place], [place] documented in this encounter Visit Diagnoses Not on filedocumented in this encounter Care Teams Estimator Lumber Relationship Specialty Start Date End Date None PCP - General 03/22/19 11/11/19 None documented as of this encounter
--- OUTSIDE RECORDS SUMMARY | 2022-01-02 11:10 | XMS_ITS | Encounter Summary ---
:1975 [place] [address] Care Team Providers Name Role Phone None Primary Care Provider Unavailable Encounter Details Date Type Department Care Team Description 03/22/2019 Emergency Emergency Department [facility] [place] [address] Social History Tobacco Use Types Packs/Day [...] daily. Tablet documented as of this encounter Plan of Treatment Upcoming Encounters Date Type Specialty Care Team Description 02/08/2022 Office Visit Orthopaedics Bee Dupree MD [facility] ER DR ORTHOPAEDIC SURG [place] [address] (Wo rk) documented as of this encounter Procedures Procedure Name Priority Date/Time Associated Diagnosis Comme nts BLOOD GAS 2 Routine 03/22/2019 10:56 PM Results for this ARTERIAL EDT procedure are i n the results section. BLOOD GAS 2 Routine 03/22/2019 7:18 PM Results f or this ARTERIAL EDT procedure are i n the results section. BLOOD GAS 2 Routine 03/22/2019 5:53 PM Results f or this ARTERIAL EDT procedure are i n the results section. documented in this encounter Results (ABNORMAL) BLOOD GAS 2 ARTERIAL (03/22/2019 10:56 PM EDT) Analysis Performed At Patho logist Time Signature pH Art 7.37 7.35 - [facility] 7.45 [facility] pCO2 Art 35 35 - 45 [facility] mmHg [facility] pO2 Art 121 (H) 85 - 104 [facility] mmHg [facility] HCO3 Art 19.6 (L) 20.0 - [facility] 26.0 [facility] mmol/L [facility] BE Art -5.7 (L) -3.0 - 3.0 [facility] mmol/L [facility] Hgb Blood Gas 8.8 (L) 11.7 - [facility] 15.5 gm/dL [facility] O2HB Art 95.8 94.0 - [facility] 97.0 % [facility] COHB Art 0.3 % [facility] Comment: Nonsmokers: 0.5-1.5% COHB Smokers: Variable, but usually less than 10% Toxic: 20-30% COHB Lethal: Greater than 60% COHB METHB Art 1.0 <=1.5 % [facility] Na Whole Blood 135 135 - 145 mmol/L [facility] K Whole Blood 4.5 3.5 - 5.0 mmol/L [facility] Comment: Please note: Patients with WBC >100,000 may have falsely elevated Potassium levels. Contact the Clinical Chemistry L aboratory if there are any questions. ICa Whole Blood 1.10 (L) 1.15 - 1.33 mmol/L [facility] Comment: Note: ??Total bilirubin higher than 20 m g/dL may lead to falsely low ionized calcium. CL Whole Blood 110 (H) 98 - 107 mmol/L [facility] Gluc Whole Bld 128 65 - 199 mg/dL [facility] Comment: Diabetes: >=200 mg/dL plus symp toms. Lactate WB 2.4 (H) 0.5 - 2.2 mmol/L [facility] FIO2 Art 30 % [facility] PF Ratio Art 403 [facility] Specimen Anatomical Collection Method Collection Time Receive d Time (Source) Location / / Volume Laterality Blood specimen 03/22/2019 10:56 9 (specimen) PM EDT 10:56 PM EDT Emergency Dept CHEMISTRY ORDERABLES Performing Organization Address City/State/[place] [address] (ABNORMAL) BLOOD GAS 2 ARTERIAL (03/22/2019 7:18 PM EDT) Analysis Performed At Patho logist Time Signature pH Art 7.32 (L) 7.35 - [facility] 7.45 [facility] pCO2 Art 35 35 - 45 [facility] mmHg [facility] pO2 Art 113 (H) 85 - 104 [facility] HCO3 Art 17.9 (L) 20.0 - [facility] 26.0 [facility] mmol/[facility] BE Art -8.6 (L) -3.0 - 3.0 [facility] mmol/L [facility] Hgb Blood Gas 10.2 (L) 11.7 - [facility] 15.5 gm/dL [facility] O2HB Art 96.3 94.0 - [facility] 97.0 % [facility] COHB Art 0.3 % [facility] Comment: Nonsmokers: 0.5-1.5% COHB Smokers: Variable, but usually less than 10% Toxic: 20-30% COHB Lethal: Greater than 60% COHB METHB Art 0.6 <=1.5 % [facility] Na Whole Blood 137 135 - 145 mmol/L [facility] K Whole Blood 3.7 3.5 - 5.0 mmol/L [facility] Comment: Please note: Patients with WBC >100,000 may have falsely elevated Potassium levels. Contact the Clinical Chemistry L aboratory if there are any questions. ICa Whole Blood 1.18 1.15 - 1.33 mmol/L [facility] Comment: Note: ??Total bilirubin higher than 20 m g/dL may lead to falsely low ionized calcium. CL Whole Blood 111 (H) 98 - 107 mmol/L [facility] Gluc Whole Bld 166 65 - 199 mg/dL [facility] Comment: Diabetes: >=200 mg/dL plus symp toms. Lactate WB 4.1 (Critical) 0.5 - 2.2 mmol/L [facility] Comment: Noted by instrument person. FIO2 Art 30 % [facility] PF Ratio Art 377 [facility] Temp Art 35.7 Celsius [facility] Specimen Anatomical Collection Method Collection Time Receive d Time (Source) Location / / Volume Laterality Blood specimen 03/22/2019 7:18 PM 019 7:18 (specimen) EDT PM EDT Emergency Dept CHEMISTRY ORDERABLES Performing Organization Address City/State/[place] [address] (ABNORMAL) BLOOD GAS 2 ARTERIAL (03/22/2019 5:53 PM EDT) Analysis Performed At Patho logist Time Signature pH Art 7.37 7.35 - [facility] 7.45 [facility] pCO2 Art 32 (L) 35 - 45 [facility] pO2 Art 132 (H) 85 - 104 [facility] HCO3 Art 18.4 (L) 20.0 - [facility] 26.0 [facility] mmol/[facility] BE Art -6.9 (L) -3.0 - 3.0 [facility] mmol/L [facility] Hgb Blood Gas 13.1 11.7 - [facility] 15.5 gm/dL [facility] O2HB Art 97.6 (H) 94.0 - [facility] 97.0 % [facility] COHB Art 0.0 % [facility] Comment: Nonsmokers: 0.5-1.5% COHB Smokers: Variable, but usually less than 10% Toxic: 20-30% COHB Lethal: Greater than 60% COHB METHB Art 0.4 <=1.5 % [facility] Na Whole Blood 136 135 - 145 mmol/L [facility] K Whole Blood 4.0 3.5 - 5.0 mmol/L [facility] Comment: Please note: Patients with WBC >100,000 may have falsely elevated Potassium levels. Contact the Clinical Chemistry L aboratory if there are any questions. ICa Whole Blood 1.27 1.15 - 1.33 mmol/L [facility] Comment: Note: ??Total bilirubin higher than 20 m g/dL may lead to falsely low ionized calcium. CL Whole Blood 109 (H) 98 - 107 mmol/L [facility] Gluc Whole Bld 152 65 - 199 mg/dL [facility] Comment: Diabetes: >=200 mg/dL plus symp toms. Lactate WB 3.3 (H) 0.5 - 2.2 mmol/L [facility] FIO2 Art 30 % [facility] PF Ratio Art 440 [facility] Temp Art 36.9 Celsius [facility] Specimen Anatomical Collection Method Collection Time Receive d Time (Source) Location / / Volume Laterality Blood specimen 03/22/2019 5:53 PM 019 5:53 (specimen) EDT PM EDT Md Emergency Dept CHEMISTRY ORDERABLES Performing Organization Address City/State/[facility] [place] [address] documented in this encounter Visit Diagnoses Not on filedocumented in this encounter Care Teams Protective Officer Relationship Specialty Start Date End Date None PCP - General 03/22/19 11/11/19 None documented as of this encounter
--- OUTSIDE RECORDS SUMMARY | 2022-01-02 11:10 | XMS_ITS | Encounter Summary ---
:1975 [place] [address] Care Team Providers Name Role Phone None Primary Care Provider Unavailable Encounter Details Date Type Department Care Team Description 03/22/2019 Ancillary Procedure Radiology Library at [facility], And dominik Guevara [facility] [place] [id number] [place] [address] [phone] (Wo rk) Social History Tobacco Use Types [...] Bee Dupree MD [facility] DR ORTHOPAEDIC SURG [place] [address] (Wo rk) documented as of this encounter Procedures Procedure Name Priority Date/Time Associated Diagnosis Comme nts FILM LIBRARY Routine 03/22/2019 2:10 PM Results f or this STORAGE ONLY CT EDT procedure ar e in HEAD AND SPINE the results section. documented in this encounter Results Film Library- Storage Only CT Head And Spine (03/22/2019 2:10 PM EDT) Specimen (Source) Anatomical Location Collection Method / Collectio n Time Received Time / Laterality Volume Narrative RAD - 03/22/2019 2:10 PM EDT This exam is auto-finalizing. It's purpo se is for storage only. Bin Encinas MD IMG FILM LIBRARY ORDERABLES Performing Organization Address City/State/ZIP Code Phon e Number RAD [place], [place] documented in this encounter Visit Diagnoses Not on filedocumented in this encounter Care Teams Restaurant Management Internship Relationship Specialty Start Date End Date None PCP - General 03/22/19 11/11/19 None documented as of this encounter
--- OUTSIDE RECORDS SUMMARY | 2022-01-02 11:10 | XMS_ITS | Encounter Summary ---
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 34.9 - 44.4 % [facility] SERVICES MCV 95 81 - 98 fl [facility] SERVICES MCH 29.3 26.7 - 33.3 pg [facility] LAB[facility] SERVICES MCHC 31.0 (L) 32.1 - 35.9 gm/dl [facility] LAB[facility] SERVICES RDW-CV 19.9 (H) <14.7 % [facility] SERVICES RDW-SD 66.2 (H) <50.4 fl [facility] SERVICES Anisocytosis 2+ [facility] SERVICES PLT 663 (H) 141 - 377 K/cmm [facility] SERVICES MPV 10.4 9.5 - 12.7 fl [facility] SERVICES Specimen Blood specimen (specimen) - Blood Performing Organization Address City/[facility]/ZIP Code Phon e Number [facility] [address] [place] [address] SERVICES MAGNESIUM (04/01/2019 5:29 EDT) Pathologist Sig nature Magnesium 2.1Comment: 1.7 - 2.8 mg/dl [facility]formed at [facility] LABORATORY SERVICES [place], [place] Specimen Blood specimen (specimen) - Blood Performing Organization Address City/[facility]/ZIP [facility] Phon e Number [facility] [address] [place] [address] SERVICES (ABNORMAL) CREATININE (04/01/2019 5:29 EDT) Creatinine 0.47 (L) 0.52 - 1.04 [facility] mg/dl LABORATORY SERVICES GFR, Calculated 123 >60 [facility] Comment: ml/min/1.73m2 LABORATORY eGFR calculated using CKD-EPI equation for SERVICES non Americans. Multiply eGFR by 1.16 for Americans. Performed at [place], [place] Specimen Blood specimen (specimen) - Blood Performing Organization Address City/[facility]/ZIP [facility] Phon e Number [facility] [address] [place] [address] SERVICES ELECTROLYTES (04/01/2019 5:29 EDT) Pathologist Sig nature Sodium 137 136 - 145 mEq/L [facility] SERVICES Potassium 4.9 3.5 - 5.0 mEq/L [facility] SERVICES Chloride 98 96 - 110 mEq/L [facility] LABOR[facility] SERVICES CO2 29Comment: 22 - 32 mEq/L [facility]formed at [facility] LABORATORY SERVICES [place], [place] Specimen Blood specimen (specimen) - Blood Performing Organization Address City/[facility] Phon e Number [facility] [address] [place] [address] SERVICES (ABNORMAL) COMPLETE BLOOD COUNT (04/01/2019 5:29 EDT) WBC 12.19 4.0 - 12.4 [facility] K/[facility] LABORATORY SERVICES RBC 3.32 (L) 3.86 - 5.04 [facility] LABORATORY SERVICES Hemoglobin 9.7 (L) 11.6 - 15.2 [facility] gm/dl LABORATORY SERVICES HCT 31.0 (L) 34.9 - 44.4 % [facility] LABORATORY SERVICES MCV 93 81 - 98 fl [facility] SERVICES MCH 29.2 26.7 - 33.3 pg [facility] LABORAT[facility] SERVICES MCHC 31.3 (L) 32.1 - 35.9 [facility] gm/dl LABORATORY SERVICES RDW-CV 19.6 (H) <14.7 % [facility] LABORATORY SERVICES RDW-SD 59.5 (H) <50.4 fl [facility] LABOR[facility] SERVICES Anisocytosis 2+ [facility] LABORATORY SERVICES PLT 643 (H) 141 - 377 [facility] K/[facility] LABORATORY SERVICES MPV 9.8Comment: 9.5 - 12.7 fl [facility] Performed at [facility] LABORATORY SERVICES [facility], [place], [place] Specimen Blood specimen (specimen) - Blood Performing Organization Address City/State/ZIP Code Phon e Number [facility] [address] [place] [address] SERVICES documented in this encounter Visit Diagnoses Diagnosis Closed fracture of right femur (HCC-CMS) (HCC) - Primary Closed fracture of unspecified part of f emur Subarachnoid hemorrhage following injury , no loss of consciousness, sequela (HCC) Closed fracture of body of sternum, sequ jewel Contusion of right lung, sequela Laceration of spleen, sequela Closed fracture of neck of right femur, sequela Closed displaced fracture of neck of rig ht talus, sequela Closed displaced fracture of cuboid of r ight foot, initial encounter Fracture of one rib of right side Pancreatic injury Pancreas injury, multiple and unspecifie d sites, without mention of open wound into cavity Fracture of cuboid of right foot Rehab Individualized Plan of Care - Gonzalo Coles MD - 04/02/2019 1012 EDT INDIVIDUALIZED OVERALL PLAN OF CARE I have reviewed this patient's pre-admission screening, post-admission evaluation, assessments from the involved therapy disciplines including OT and PT, and all other pertinent assessments to date in the development of this overall plan of care for RENU HUGHES Reason for admission is Active Problems: Subarachnoid hemorrhage following injury, no loss of consciousness (HCC-CMS) Closed fracture of body of sternum Fracture of one rib of right side Contusion of right lung Splenic laceration Pancreatic injury Closed fracture of right femur (HCC-CMS) Closed fracture of neck of right talus Fracture of cuboid of right foot The medical prognosis for this patient is good with continued supportive treatment including daily physician monitoring for all above medical problems. I anticipate that this patient will achieve a level of function such that she will complete functional mobility with supervision, and self cares with supervision at the time of discharge. The estimated length of stay is 7-10 days with planned discharge to the home setting. Based on her current impairments, functional status, complicating conditions, and other contributingfactors, this patient continues to require a multidisciplinary team for three hours of OT and PT daily, at least 5 days a week, to achieve therapy and team goals. With this level of therapy, this patien t can reasonably be expected to make measurable improvement as a result of the rehabilitation treatment. Time is stated as an average and may be varied day to day based on patient's individual daily needs. Gonzalo Coles MD documented in this encounter Administered Medications Inactive Administered Medications - up to 3 most recent administrations Medication Order MAR Action Action Date Dose Rate Site acetaminophen (TYLENOL) tablet 650 mg Given 04/04/2019 1:30 EDT 650 mg 650 mg, oral, EVERY 4 HOURS PRN, Starting on Fri03/31/19 at 1616, Until Fri04/07/19 at 1403, Pain, Routine Given 04/03/2019 3:50 EDT 650 mg docusate sodium (COLACE) capsule 100 mg Given 04/07/2019 7:53 EST 100 mg 100 mg, oral, 2 TIMES DAILY, First dose on Fri03/31/19 at 2100, Until Discontinued, Routine Given 04/06/2019 20:05 EST 100 mg Given 04/06/2019 9:23 EST 100 mg enoxaparin (LOVENOX) injection 40 mg Given 04/07/2019 10:06 EST 40 mg 40 mg, subcutaneous, DAILY, First dose on Fri04/01/19 at 0800, Until Discontinued, Routine Given 04/06/2019 9:23 EST 40 mg Given 04/05/2019 10:18 EST 40 mg polyethylene glycol 3350 (MIRALAX) packe t 17 g Given 04/04/2019 16:26 EST 17 g 17 g, oral, DAILY PRN, Starting on Fri03/31/19 at 1616, Until Fri04/07/19 at 1403, Constipation, Routine documented in this encounter Active and Recently Administered Medications Times are shown in EST. Scheduled Medication Order 04/05/2019 04/06/2019 04/07/2019 docusate sodium (COLACE) capsule 100 mg 1018 (Given - Provider: Rekha Deluca RN)2017 (Given - Provider: Maurilio Dao RN) 0923 (Given - Provider: Macey Quinones RN)2004 (Given - Provider: Maurilio Dao RN) 0753 (Given - Provider: Abilio Grey RN) 100 mg, oral, 2 TIMES DAILY, First dose on Fri03/31/19 at 2100, Until Discontinued, Routine enoxaparin (LOVENOX) injection 40 mg 1018 (Given - Provider: Rekha Deluca RN) 0923 (Given - Provider: Macey Quinones RN) 1006 (Given - Provider: Abilio Grey RN - Comment: Instructing Pt family memeber on medication) 40 mg, subcutaneous, DAILY, First dose o n Michelle 04/01/19 at 0800, Until Discontinued, Routine PRN Medication Order 04/05/2019 04/06/2019 04/07/2019 acetaminophen (TYLENOL) tablet 650 mg 650 mg, oral, EVERY 4 HOURS PRN, Startin g Fri03/31/19 at 1616, Until Fri04/07/19 at 1403, Pain, Routine bisacodyl (DULCOLAX) suppository 10 mg 10 mg, rectal, DAILY PRN, Starting Fri at 1616, Until Fri04/07/19 at 1403, Constipation, Routine polyethylene glycol 3350 (MIRALAX) packet 17 g 17 g, oral, DAILY PRN, Starting 03/04 at 1616, Until Fri04/07/19 at 1403, Constipation, Routine documented in this encounter Orders Medications Ordered That Might Not Have Count Last Ord ered Date First Ordered Date Been Administered bisacodyl (DULCOLAX) suppository 10 mg 1 9 oxyCODONE (ROXICODONE) immediate release 1 019 tablet 5 mg Nursing Count Last Ordered Date First Ordered Date PATIENT AT LOW RISK FOR VTE: RISK OF 1 03/31/2019 MECHANICAL PROPHYLAXIS OUTWEIGHS Consult Count Last Ordered Date First Ordered Date CONSULT NUTRITION 1 04/01/2019 Admission Count Last Ordered Date First Ordered Date STATUS: INPATIENT REHAB ADMISSION 1 03/31/2019 Transfer Count Last Ordered Date First Ordered Date NOTIFY PPS OF DISCHARGE COMPLETE 1 04/07/2019 CHANGE PCP 1 04/02/2019 Discharge Count Last Ordered Date First Ordered Date DISCHARGE PATIENT 1 04/07/2019 Consult to Social Work Count Last Ordered Date First O rdered Date CONSULT SOCIAL WORK 1 03/31/2019 documented in this encounter Care 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
--- OUTSIDE RECORDS SUMMARY | 2022-01-02 11:10 | XMS_ITS | Encounter Summary ---
:1975 Author Organization [facility] [place] [address] Care Team Providers Name Role Phone None Primary Care Provider Unavailable Reason for Visit Auth/Cert Specialty Diagnoses / Procedures Referred By Contact Refer red To Contact Diagnoses Multiple Trauma Procedures [employer] Referral ID Status Reason Start Date Expiration Date Visits Requ ested Visits Authorized [id number] 1 1 Encounter Details Date Type Department Care Team Description 03/22/2019 Hospital Encounter [facility] at [facility] Yoel Kong MD [address] [place] [address] EMERGENCY MEDICINE [phone] [place], [place] [address] (Wo rk) Social History Tobacco [...] Orthopaedics Bee Dupree MD [facility] [address] ORTHOPAEDIC SURG MICHELLE [place], [place] [address] (Wo rk) documented as of this encounter Visit Diagnoses Not on filedocumented in this encounter Care Teams 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
[2022-01-03 21:30] LABS: Chlamydia Result Negative (Negative); GC Result Negative (Negative)
== END 2022-01-02 10:53 | disposition home or self-care (01) ==
LOC: LBN 10:52
PROVIDERS: PCP Nurse Practitioner; Visit Provider Nurse Practitioner Women's Health
DX: Z12.4 Encounter for screening for malignant neoplasm of cervix (principal); Z11.3 Encounter for screening for infections with a predominantly sexual mode of transmission; Z11.51 Encounter for screening for human papillomavirus (HPV)
CPT/HCPCS: 87491; 87591; 88142; 87624

== ENCOUNTER → 2022-02-11 01:46 | Outpatient (CLI) | payer MEDICAID, SELFPAY ==
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
== END ==
PROVIDERS: PCP Nurse Practitioner; Visit Provider Nurse Practitioner Women's Health
DX: N63.12 Unspecified lump in the right breast, upper inner quadrant (principal); N60.11 Diffuse cystic mastopathy of right breast; N60.82 Other benign mammary dysplasias of left breast
CPT/HCPCS: 76642; 77062; 77066; G0279

== ENCOUNTER 2022-04-12 14:13 | Outpatient (REF) | payer MEDICAID, SELFPAY ==
[2022-04-12 16:52] LABS: Calculated LDL 127 mg/dL (<100); Cholesterol 212 mg/dL (<200); Glucose 92 mg/dL (74-106); HDL Cholesterol 66 mg/dL (40-60); Triglyceride 96 mg/dL (<150)
== END 2022-04-12 14:14 | disposition home or self-care (01) ==
LOC: NCHCN 14:13
PROVIDERS: PCP Nurse Practitioner; Visit Provider Nurse Practitioner Family
DX: Z13.220 Encounter for screening for lipoid disorders (principal); Z13.1 Encounter for screening for diabetes mellitus
CPT/HCPCS: 80061; 82947

== ENCOUNTER 2022-08-13 01:07 | Outpatient (CLI) | payer MEDICAID, SELFPAY ==
--- NOTE | 2022-08-13 07:45 | DI.MAMMO_ITS ---
Exam(s) US BREAST RT LIMITED MG MAMMO DIAGNOSTIC BI EXAM: MG MAMMO DIAGNOSTIC BI CLINICAL HISTORY: 6 month f/u,rt sided breast lump, bilat breast cysts,n60.02,n60.01,n63.12. TECHNIQUE: Spot compression digital Mammography views of the bothbreasts with Tomosynthesis followe d by bilateral breast ultrasound. COMPARISON: US US BREAST RT LIMITED from 08/13/2022 FINDINGS: RIGHT BREAST: Mammography/Tomosynthesis: Additional spot magnification views were performed of the subareolar region of the right breast. Masses/Architectural Distortion: Interval development coarse calcifications in region of previously n oted oil cyst. Microcalcifictions: No suspicious pleomorphic-type are seen. Skin Thickening/Nipple Retraction: None. Right breast US: Echotexture: Normal appearance of the glandular tissue. Shadowing: Echogenic area with posterior shadowing in the 12 o'clock position may correspond to the o il cyst seen on mammogram. Cyst: Multiple small cysts are noted in the subareolar tissue. Solid lesions: None seen. Ductal dilation: None. LEFT BREAST: Mammography/Tomosynthesis: Masses/Architectural Distortion: None seen. No change in benign-appearing ovoid density in the retroa reolar region. Microcalcifictions: No suspicious pleomorphic-type are seen. Skin Thickening/Nipple Retraction: None. IMPRESSION: 1. Right breast: Interval increase in calcifications in areas of oil cysts, of findings is are presum ably posttraumatic. Six-month follow-up mammogram recommended. 2. Left breast: No evidence of malignancy is noted. 3. The findings were discussed with the patient on the date of the examination. BI-RADS Category 3 - 6 month - Probably Benign Finding: Recommend follow-up mammography in 6 months Breast Density - Category B - Scattered areas of fibroglandular density A negative radiographic report should not delay biopsy if a dominant or clinically suspicious mass is present. Up to ten percent of cancers are not identified on mammography. A negative report may reinforce clinical impression. Adenosis and dense breasts may obscure an underlying neoplasm. False positive reports average 6 to 10%. Patient will receive a letter notifying them of these results.
== END 2022-08-13 01:27 ==
LOC: DI 01:07
PROVIDERS: PCP Nurse Practitioner; Visit Provider Nurse Practitioner Women's Health
DX: N60.01 Solitary cyst of right breast (principal); N60.02 Solitary cyst of left breast; N63.12 Unspecified lump in the right breast, upper inner quadrant; R92.1 Mammographic calcification found on diagnostic imaging of breast
CPT/HCPCS: 76642; 77062; 77066; G0279

== ENCOUNTER → 2023-02-14 00:06 | Outpatient (CLI) | payer MEDICAID, SELFPAY ==
--- NOTE | 2023-02-14 08:45 | DI.MAMMO_ITS ---
Exam(s) MG MAMMO DIAGNOSTIC UNI US BREAST RT COMPLETE EXAM: MG MAMMO DIAGNOSTIC UNI and U/S breast RT complete CLINICAL HISTORY: 6 month f/u,r92.8, rt breast lump, abnl marcela. TECHNIQUE: Craniocaudal and mediolateral oblique Full Field Digital Mammography views of the right b reast with Computer Aided Diagnosis followed by Tomosynthesis and right breast ultrasound. COMPARISON: Comparison is made with prior examinations. FINDINGS: Mammography/Tomosynthesis: Masses/Architectural Distortion: There is a 2 cm area of architectural distortion in the medial right breast now with multiple calcifications associated with it. The calcifications extend to the region of the nipple. Microcalcifictions: No suspicious pleomorphic-type are seen. Skin Thickening/Nipple Retraction: None. Right breast US: Echotexture: Normal appearance of the glandular tissue. Shadowing: No suspicious foci. Cyst: None. Solid lesions: At the 12 to 1 o'clock position of the right breast 1 cm from the nipple there are sev eral cysts present. The largest measures 1 cm. There is also an irregular hypoechoic ill-defined ar ea suspicious for neoplastic process. No axillary adenopathy is identified at this time. Ductal dilation: None. IMPRESSION: 1. Findings highly suspicious for malignancy in the right breast. 2. Biopsy is recommended at this time. 3. The findings were discussed with the patient on the date of the examination. The findings were al so discussed with Dr. Scruggs at 3:20 p.m. on 02/14/2023. BI-RADS Category 5 - Highly Suggestive of Malignancy: Biopsy recommended Breast Density - Category B - Scattered areas of fibroglandular density Breast density Category C or D implies that the patient has dense breast tissue. Dense breast tissue can make it harder to find cancer on a mammogram. Dense breast tissue is also associated with an incr eased risk of breast cancer. This information about the result of the mammogram report was provided to the patient to raise their awareness. Use this report when you speak with the patient about their risks for breast cancer, which includes their family history. At that time, you may recommend additional screening tests (Ultrasoun d or MRI) as these tests may add significant information. A negative radiographic report should not delay biopsy if a dominant or clinically suspicious mass is present. Up to ten percent of cancers are not identified on mammography. A negative report may reinforce clinical impression. Adenosis and dense breasts may obscure an underlying neoplasm. False positive reports average 6 to 10%. Patient will receive a letter notifying them of these results.
== END ==
PROVIDERS: PCP Nurse Practitioner; Visit Provider Nurse Practitioner Women's Health
DX: N63.12 Unspecified lump in the right breast, upper inner quadrant; R92.8 Other abnormal and inconclusive findings on diagnostic imaging of breast; Z12.31 Encounter for screening mammogram for malignant neoplasm of breast
CPT/HCPCS: 76642; 77061; 77065; G0279

== ENCOUNTER 2023-06-26 13:36 | Outpatient (CLI) | payer MEDICAID, SELFPAY ==
--- NOTE | 2023-06-26 09:30 | DI.RAD_ITS ---
Exam(s) XR WRIST RT COMPL NAVICULAR EXAM: XR WRIST RT COMPL NAVICULAR CLINICAL HISTORY: RIGHT WRIST PAIN. TECHNIQUE: 2D digital imaging was performed of the right wrist. Four views were obtained. Scaphoid, PA, lateral and oblique views were obtained. COMPARISON: No exams were available for comparison FINDINGS: BONES: No acute fracture is present. No bony destructive lesion is seen. JOINTS: The carpal bones are normally aligned. SOFT TISSUE: Normal. IMPRESSION: Unremarkable radiographs of the right wrist. DATA REPOSITORY: RADIATION DOSE DELIVERED:
== END 2023-06-26 13:37 | disposition home or self-care (01) ==
LOC: DIORS 13:36
PROVIDERS: PCP Nurse Practitioner; Visit Provider Student in an Organized Health Care Education/Training Program
DX: M25.531 Pain in right wrist (principal)
CPT/HCPCS: 73110

== ENCOUNTER 2023-09-01 09:07 | Day surgery (SDC) | payer MEDICAID, SELFPAY ==
--- NOTE | 2023-08-31 14:36 | W.PM.DSUDISC ---
Date of service: 09/01/23 Time of Service: 10:39 Discharge Plan Disposition Patient Disposition: Home Condition: Good Discharge Details Reason For Visit: Screening colonoscopy Attending Provider: Dominguez Morris Primary Care Provider: Joellen Sparks Home Meds and New Rx's Prescriptions: Continued MULTIVITAMIN WITH OMEGA 3, AND IRON 1 tab PO DIRECTED Rx Instructions: 2 gel caps qd calcium carbonate-vit D3-min 600 mg calcium- 400 unit tablet 1 tab PO DAILY Discontinued bisacodyl [Dulcolax (bisacodyl)] 5 mg tablet,delayed release (DR/EC) 5 mg PO ONCE Qty: 4 0RF Rx Instructions: Take per colonoscopy instructions provided by ordering providers office polyethylene glycol 3350 17 gram/dose powder 17 g PO ONCE Qty: 238 0RF Rx Instructions: Take per colonoscopy instructions provided by ordering providers office Discharge Instructions Instructions: Hemorrhoids (GEN), Colorectal Polyps (GEN) Additional Instructions: Renu, we were able to complete your colonoscopy today without any difficulty. I did find 2 polyps, which I removed. They will be sent off for testing, and once we know the nature of those polyps, my office will be in touch regarding recommendations for the timing of your next colonoscopy. Incidentally, you also have small internal hemorrhoids. I have attached some general information here regarding hemorrhoids as well as colorectal polyps. If you have any questions at all, please do not hesitate to call at any point. 1. If tolerated, consume a soft, low fiber diet for 1-2 days. 2[address] Do not drive, drink alcohol, operate machinery, make critical decisions, or do activities that require coordination or balance for 24 hours. 3. Because air was put into your colon during the procedure, expelling air from your rectum (passing gas or farting) is normal. 4. You may not have a bowel movement for 1-3 days because of the colonoscopy prep. This is normal. 5. Go directly to the emergency room if you notice any of the following: Develop chills (warm to touch), or if you have a thermometer and your temperature is above 101 Difficulty breathing or difficultly swallowing Persistent vomiting Severe abdominal pain, other than gas cramps Severe chest pain Black, tarry stools Any bleeding ? exceeding one tablespoon 6. Call your physician if the site where your intravenous was started becomes red, swollen, painful, and warm to touch. 7. Your physician has reviewed your pre-procedure medications. Please continue to take those medications as previously ordered. You will be given specific information/education regarding any changes to your medications before leaving. Activity:: Activity as Tolerated Diet:: As Tolerated Discharge Orders Discharge Orders: Discharge Order (Routine); Ordered 08/31/23 Ordered By: Dominguez Morris DS: Diagnosis Discharge Diagnosis (1) Encounter for screening colonoscopy: Status: Acute Asessment and Plan: Follow-up on polypectomy results
--- NOTE | 2023-08-31 14:37 | COLE_ITS ---
Date of service: 09/01/23 Time of Service: 10:40 Colonoscopy Report Date of procedure: 09/01/23 Pre-op diagnosis general: Screening colonoscopy Post-op diagnosis procedure note: other (Internal hemorrhoids, colon polyps) Procedure: Colonoscopy with polypectomy Surgeon: Dominguez Morris Anesthesia Type: General:No Airway Estimated blood loss (mL): 5 Pathology: other (0.25 cm flat polyp at 85 cm, 0.25 cm pedunculated polyp in the rectum) Complications: None Disposition: same day Indications: Renu is a 48-year-old woman with a family history of colon cancer. She needs her for screening colonoscopy. Prep: Miralax/Dulcolax Procedure Start Time: 10:09 Procedure End Time: 10:30 Retraction Time: 11 Findings: Grade 1 internal hemorrhoids, 0.25 cm flat polyp at 85 cm, 0.25 cm pedunculated polyp in the rectum Procedure Description: After the induction of monitored anesthetic care, and with the patient in left lateral decubitus position, I began by performing an external anorectal exam.? Perineum and skin were normal, as was the anal verge.? There are some perianal skin tags consistent with old fibrosed hemorrhoids.? Next, I performed a digital rectal exam.? I did not appreciate any abnormal findings.? Next, I advanced a colonoscope into the rectal vault.? I performed retroflexion.? There are grade 1 internal hemorrhoids.? Using insufflation, I then advanced the colonoscope beyond the rectal folds and into the sigmoid colon before advancing towards the cecum.? The scope was noted to be in the cecum by identification of the ileocecal valve and appendiceal orifice.? I then began withdrawing the colonoscope using repeated irrigation as necessary for full evaluation of the colonic mucosa. Around 85 cm from the anal verge I identified a 0.25 cm polyp. ?It appeared flat in character. ?I was able to remove this with a cold forcep polypectomy. ?I examined the site, and there was minimal bleeding. ?Once this was completed, I continued to withdraw the scope and examine the remainder of the colonic mucosa.?once the scope was withdrawn to the level of the rectum, great care was taken to examine portions of the rectal folds.? In the midportion of the rectal vault was a 0.25 cm slightly pedunculated polyp. This was also removed with cold forceps without any issues. Finally, the scope was withdrawn and the patient was brought to the same-day surgery recovery unit as the anesthetic wore off. ?The findings and instructions were shared with the patient prior to discharge. [place] Bowel Prep [place] Bowel Prep Right Colon: 3 Left Colon: 3 Transverse Colon: 3 Total Score: 9
--- NOTE | 2023-08-31 18:56 | ANES.PREOP_ITS ---
General Info Date of Service Date Performed: 09/01/23 Height: 5 ft 2 in Weight: 84.368 kg Body Mass Index (BMI): 34.0 Surgical Procedure: Operation Date: 09/01/23 10:35 Proposed Procedure Side Surgeon p Colonoscopy Dominguez Morris MD Meds Allergies and Home Medications Allergies Allergy/AdvReac Type Severity Reaction Status Date / Time No Known Allergies Allergy Verified 09/01/23 09:22 Home Medication Medication Instructions Recorded MULTIVITAMIN WITH OMEGA 3, AND IRON 1 tab PO DIRECTED 04/28/23 calcium carb-vit D3-minerals 600 1 tab PO DAILY 04/28/23 mg calcium-400 unit tablet Current Visit Medications: Current Medications Generic Name Dose Route Start Last Admin Trade Name Freq PRN Reason Stop Dose Admin Hyoscyamine Sulfate 0.125 mg 08/31/23 14:36 Hyoscyamine 0.125 Mg Sl/Oral/Chew SL 09/30/23 14:35 DIRECTED PRN Ringer's Solution 1,000 mls @ 80 mls/hr 09/01/23 06:00 IV 09/01/23 23:59 [facility] IV Miscellaneous Supplies 1 each 09/01/23 06:00 Iv Access IV 09/01/23 23:59 DIRECTED SARAH Ondansetron HCl 4 mg 08/31/23 14:36 Ondansetron 4 Mg/2 Ml Vial IVP 09/30/23 14:35 Q4H PRN PRN Nausea / Vomiting Sodium Chloride 0 ml 09/01/23 06:00 Normal Saline Flush 10 Ml Syr IV 09/01/23 23:59 PRN PRN Sodium Chloride 0 ml 09/01/23 06:00 Normal Saline 10 Ml Vial IJ 09/01/23 23:59 DIRECTED PRN Sterile Water 0 ml 09/01/23 06:00 Water,Injection,Sterile 10 Ml Vial IJ 09/01/23 23:59 DIRECTED PRN PFSH Active Problems Active Problems: Problem Status Onset Code Encounter for screening colonoscopy Z12.11 Right wrist tendonitis M77.8 Depression F32.A Chronic constipation K59.09 Numbness and tingling R20.0, R20.2 Anemia D64.9 Ankle joint pain M25.579 Tendonitis M77.9 Grief at loss of child F43.21, Z63.4 Breast cyst N60.09 Breast lump on right side at 2 o'clock position N63.12 Migraine G43.909 Medical History Medical History (Updated 08/31/23 @ 14:36 by Dominguez Morris MD) Traumatic hemoperitoneum Surgical History Surgical History History of ankle surgery R Femur fracture, right H/O exploratory laparotomy H/O section H/O tubal ligation Tobacco Smoking/Tobacco Use Status: Former Tobacco Use Alcohol Alcohol Intake: never Substance Use Substance use: Never Substance use type: does not use Prental History History 2 Para 2 Hx # Term Pregnancies Multiple births Hx # Pregnancies Ectopic pregnancies AB induced Hx Number of Living Children 1 AB spontaneous Vital Signs and Lab Results Vital Signs Most Recent Vital Signs in EMR: Temp Pulse Resp BP Pulse Ox 36.4 C L 63 18 144/95 H 99 09/01/23 09:23 09/01/23 09:23 09/01/23 09:23 09/01/23 09:23 09/01/23 09:23 Lab Results Blood Type / Crossmatch: No Data to Display Complete Blood Count: No Data to Display Complete Metabolic Panel: No Data to Display Liver Function Panel: No Data to Display Coagulation Panel: No Data to Display Cardiac Panel: No Data to Display Arterial Blood Gas: No Data to Display Venous Blood Gas: No Data to Display Pancreas Panel: No Data to Display Thyroid Panel: No Data to Display Infectious Disease: No Data to Display Blood Cultures: No Data to Display Toxicology Panel: No Data to Display Panel: No Data to Display Anesthesia Assessment and Plan Anesthesia History Personal History: No History of Anesthesia Complications Family History: No Family History of Anesthesia Complications Exercise Tolerance Exercise Tolerance: Metabolic Equivalents>4 Cardiac & Pulmonary Exam Cardiac Exam: Normal S1/S2 Heart Sounds Pulmonary Exam: Clear Bilateral Breath Sounds Implantable Cardiac Device Does patient have a Pacemaker or an ICD?: No Airway Exam Known Difficult Airway: No Mallampati Class: 1 Mouth Opening: Normal (> 3cm) Thyromental Distance: Greater than 3 cm Neck Range of Motion: Full ROM Neck Circumference: Normal Teeth Condition: Normal Dentition ASA Classification ASA Score: ASA 2 Emergency Case?: No NPO Status NPO Status: NPO Clears >2 hours, Solids >8 hours Status Status: Not Relevant due to Medical History Anesthesia Plan Resuscitation Status: Full Code Anesthesia Technique: General Anesthesia Airway Planned: Natural Airway Monitors Used: Standard Monitors Preoperative Comments:: 48 yo female for colo. Sig PMHx; depression, anemia. former smoker. Previous Anes: - ex lap, glide 3, grade 1.
[2023-09-01 09:23] VITALS: BP 144/95; PULSE 63; RESP 18; TEMP 36.4; O2SAT 99
[2023-09-01 09:40] VITALS: BMI 34.0
[2023-09-01] MEDS: Lactated Ringers 1,000 ML 80 ML IV (09:58)
--- NOTE | 2023-09-01 10:23 | BOWEL_PTH ---
PATIENT: Renu Emmanuel LOC: [facility] U#:[id number] AGE/SX: 48/F ROOM: RE09/01/[address]: Dominguez Morris MD : 1975 BED: DIS: 09/01/2023 SPEC #: [id number] RECD: 09/01/23 12:55 STATUS: ALFIE RE #: [id number] MARILUZ: 09/01/23 10:[address]: Dominguez Morris DEPT: Surgical Specimen RECD BY: Noni Valderrama ENTERED: 09/01/23 12:56 SP TYPE: Bowel OTHR DR: Joellen Sparks APRN Tissues: 1 - BIOPSY BOWEL 2 - BIOPSY BOWEL Procedures: GROSS AND MICRO LEVEL 4 Comments: [id number]
[2023-09-01 10:37] VITALS: BP 121/69; PULSE 70; RESP 16; TEMP 36.2; O2SAT 96
--- NOTE | 2023-09-01 10:59 | W.ANESPOSTOP ---
Postoperative Evaluation Date, Time and Location Date Performed: 09/01/23 Time Performed: 10:46 Patient Location: Day Surgery Unit Vital Signs Most Recent Imported Vital Signs: Most Recent Vital Signs Temp Pulse Resp BP Pulse Ox 36.2 C L 70 16 121/69 96 09/01/23 10:37 09/01/23 10:37 09/01/23 10:37 09/01/23 10:37 09/01/23 10:37 Pain Score Most Recent Pain Score: Most Recent Pain Score Pain Level 0 09/01/23 10:37 Assessment Mental Status: Awake (Alert & Oriented to Patient Baseline) Airway and Respiratory Function: Patent airway with normal (patient baseline) respiratory exam Cardiovascular Function: Hemodynamically Stable Hydration Status: Adequately Hydrated Nausea & Vomiting: No Nausea or Vomiting Pain: Pt. Denies Any Pain Peripheral Nerve Block: Patient did not receive a nerve block
[2023-09-01 11:01] VITALS: BP 125/78; PULSE 59; RESP 18; TEMP 36.5; O2SAT 100
== END 2023-09-01 11:14 | disposition home or self-care (01) ==
LOC: SUR 09:08
PROVIDERS: PCP Nurse Practitioner; Visit Provider Surgery
PROC: 0DJD8ZZ Inspection of Lower Intestinal Tract, Via Natural or Artificial Opening Endoscopic (ICD-10-PCS; CPT 45378; principal; 2023-09-01 10:30)
DX: Z12.11 Encounter for screening for malignant neoplasm of colon (principal); D12.8 Benign neoplasm of rectum; K64.0 First degree hemorrhoids; Z80.0 Family history of malignant neoplasm of digestive organs; F32.A Depression, unspecified; D64.9 Anemia, unspecified; Z87.891 Personal history of nicotine dependence; D12.3 Benign neoplasm of transverse colon
CPT/HCPCS: 45380; 81025; 88305; J2704